=== PATIENT | female | born 1965 | race Caucasian/White ===

== ENCOUNTER 2022-05-17 09:22 | Inpatient (IN) ==
[2022-05-17 09:28] VITALS: BMI 36.0
--- NOTE | 2022-05-17 09:58 | DR.EXTPAIN ---
HPI Time seen Time Seen by Provider: 05/17/22 09:56 PCP Primary Care Physician: ALBA Complaint/Symptoms Chief Complaint Doctor Comments: PAIN BACK AND NUMBNESS TIMES 3 TO 4 WEEKS. STARTED IN BOTH FEET NOW UP TO NEEPLE LEVEL. NO TRAUMA. ALSO HAVING ABDOMINAL PAIN WITH NAUSEA AND Chief Complaint:: PT STATES ABOUT 3 WKS AGO SHE STARTED HAVING NUMBNESS IN HER LEGS AND IT HAS WENT UP TO HER STOMACH AND UP TO HER FINGERS ON BILATERAL SIDES. PT STATES SHE HAS A BAD COUGH WELL. PT STATES AT TIMES HER STOMACH HURTS OR ITS NUMB. COVID-19 Coronavirus risk:travel/contact w/high risk person: No Has patient experienced Coronavirus symptoms: No Source History Provided: Patient Mode of arrival Mode of Arrival: Wheelchair Timing Onset of Chief Complaint: 05/17/22 PMH PMH Past Medical History: Yes Past Medical History: Hypertension Past Surgical History: No Surgical History: No History Family History History of Family Medical Conditions: No Family Medical History: Cancer, Coronary Artery Disease, Heart Failure and Hypertension Social History Does patient currently use any type of tobacco product: Yes Have you used tobacco products in the last 12 months: Yes Type of Tobacco Use: Cigarettes Does any household member use tobacco: Yes Alcohol Use: Occasionally Do you use any recreational Drugs:: No Lives With: Family Lives Where: Home Travel Risk Coronavirus risk:travel/contact w/high risk person: No Has patient experienced Coronavirus symptoms: No Infectious screening In the last 2 months have you had wt loss of >10#?: NO Have you had fever, night sweats or hemotysis?: No Have you traveled outside the country in the last 6 months?: No Isolation: Standard PE Vital Signs Vitals: Temperature 97.9 F Pulse Rate 110 Respiratory Rate 18 Blood Pressure [Left Arm] 141/76 Blood Pressure 121/84 O2 Sat by Pulse Oximetry 99 ROR Labs Reviewed Result Diagrams: 05/17/22 10:23 05/17/22 10:23 Laboratory: WBC 4.6 X10^3/uL (3.6-10.0) 05/17/22 10:23 RBC 2.25 X10^6/uL (3.5-5.4) L 05/17/22 10:23 Hgb 10.7 g/dL (12.0-16.0) L 05/17/22 10:23 Hct 28.9 % (36.0-47.0) L 05/17/22 10:23 MCV 128.6 fL (80.0-100.0) H 05/17/22 10:23 MCH 47.4 pg (27.0-34.0) H 05/17/22 10:23 MCHC 36.9 g/dL (33.0-35.0) H 05/17/22 10:23 RDW 17.3 % (11.6-16.5) H 05/17/22 10:23 Plt Count 186 X10^3/uL (150.0-450.0) 05/17/22 10:23 Plt Count Comment Adequate (ADEQUATE) 05/17/22 10:23 MPV 8.4 fL (7.4-11.0) 05/17/22 10:23 Neut % (Auto) 77.3 % (42.0-75.0) H 05/17/22 10:23 Lymph % (Auto) 15.4 % (21.0-51.0) L 05/17/22 10:23 [place] % (Auto) 6.2 % (0.0-13.0) 05/17/22 10:23 Eos % (Auto) 0.5 % (0.9-2.9) L 05/17/22 10:23 Baso % (Auto) 0.6 % (0.2-1.0) 05/17/22 10:23 Neut # (Auto) 3.5 x10^3/uL (2.2-4.8) 05/17/22 10:23 Lymph # (Auto) 0.7 X10^3/uL (1.3-2.9) L 05/17/22 10:23 [place] # (Auto) 0.3 x10^3/uL (0.3-0.8) 05/17/22 10:23 Eos # (Auto) 0.0 x10^3/uL (0.0-0.2) 05/17/22 10:23 Baso # (Auto) 0.0 X10^3/uL (0.0-0.1) 05/17/22 10:23 Absolute Nucleated RBC 0.4 /100WBC 05/17/22 10:23 Plt Morphology Comment Normal (NORMAL) 05/17/22 10:23 RBC Morphology Abnormal (NORMAL) A 05/17/22 10:23 Poikilocytosis Slight A 05/17/22 10:23 Anisocytosis Slight A 05/17/22 10:23 Macrocytosis 3+ A 05/17/22 10:23 Sodium 132 mmol/L (136-145) L 05/17/22 10:23 Corrected Sodium 132 mmol/L (136-145) L 05/17/22 10:23 Potassium 2.1 mmol/L (3.5-5.1) L* 05/17/22 10:23 Chloride 87 mmol/L (98-107) L 05/17/22 10:23 Carbon Dioxide 39.1 mmol/L (21-32) H 05/17/22 10:23 BUN 9 mg/dL (7-18) 05/17/22 10:23 Creatinine 0.76 mg/dL (0.55-1.02) 05/17/22 10:23 Est GFR (MDRD) Af Amer > 60 (>60) 05/17/22 10:23 Est GFR (MDRD) Non-Af > 60 (>60) 05/17/22 10:23 Glucose 116 mg/dL (65-99) H 05/17/22 10:23 Hemoglobin A1c 5.7 % 05/17/22 10:23 Calcium 8.5 mg/dL (8.5-10.1) 05/17/22 10:23 Corrected Calcium 9.5 mg/dL (8.5-10.1) 05/17/22 10:23 Magnesium 1.3 mg/dL (1.7-2.9) L 05/17/22 10:23 Total Bilirubin 2.70 mg/dL (0.2-1.0) H 05/17/22 10:23 AST 67 Units/L (15-37) H 05/17/22 10:23 ALT 23 Units/L (12-78) 05/17/22 10:23 Alkaline Phosphatase 205 Units/L (46-116) H 05/17/22 10:23 Total Protein 6.3 g/dL (6.4-8.2) L 05/17/22 10:23 Albumin 2.8 g/dL (3.4-5.0) L 05/17/22 10:23 Globulin 3.5 g/dL (2.5-4.5) 05/17/22 10:23 Albumin/Globulin Ratio 0.8 Ratio (1.1-2.1) L 05/17/22 10:23 Specimen Type Random urine 05/17/22 11:27 Urine Color Dark yellow (YELLOW) 05/17/22 11:27 Urine Appearance Slightly hazy (CLEAR) 05/17/22 11:27 Urine pH 8.0 (5.0 - 8.0) 05/17/22 11:27 Ur Specific [place] 1.010 (1.000-1.030) 05/17/22 11:27 Urine Protein 1+ (NEGATIVE) 05/17/22 11:27 Urine Glucose (UA) Negative (NEGATIVE) 05/17/22 11:27 Urine Ketones Negative (NEGATIVE) 05/17/22 11:27 Urine Blood 1+ (NEGATIVE) 05/17/22 11:27 Urine Nitrite Negative (NEGATIVE) 05/17/22 11:27 Urine Bilirubin Negative (NEGATIVE) 05/17/22 11:27 Urine Urobilinogen 2+ (NORMAL) 05/17/22 11:27 Ur Leukocyte Esterase 1+ (NEGATIVE) 05/17/22 11:27 Urine RBC 0-2 /HPF (0-3) 05/17/22 11:27 Urine WBC 0-2 /HPF (0-5) 05/17/22 11:27 Ur Squamous Epith Cells Rare /HPF (NEGATIVE) 05/17/22 11:27 Amorphous Sediment 1+ /HPF (NEGATIVE) 05/17/22 11:27 Urine Bacteria Negative /HPF (NEGATIVE) 05/17/22 11:27 Ur Culture Indicated? No/not indicated 05/17/22 11:27 SARS-CoV-2 (PCR) Negative (NEGATIVE) 05/17/22 12:44 Opioid Opioid Risk Tool Age (Sudarshan box if 16-45): No History of Preadolescent Sexual Abuse: No Total: 0 Total Score Risk Category: Low Risk Copyright: Chad PERRIN predicting aberrant behaviors Discharge Plan Discharge Plan Patient Disposition: 01 HOME, SELF-CARE Condition: Stable Orders to Discharge Patient Discharge Orders: Transfer (Routine); Ordered 05/17/22 Ordered By: RONIT IRWIN
[2022-05-17] MEDS ORDERED: TORADOL 60 MG VIAL IM ONE (10:11)
[2022-05-17] MEDS ORDERED: ZOFRAN INJ 4 MG VIAL IM ONE (10:11)
[2022-05-17] MEDS ORDERED: TORADOL 60 MG VIAL ONE (10:14)
[2022-05-17] MEDS ORDERED: ZOFRAN INJ 4 MG VIAL ONE (10:15)
[2022-05-17 10:31] LABS: BASOPHILS % (AUTO) 0.6 % (0.2-1.0); EOSINOPHILS % (AUTO) 0.5 % (0.9-2.9); HEMATOCRIT 28.9 % (36.0-47.0); HEMOGLOBIN 10.7 g/dL (12.0-16.0); LYMPHOCYTES # (AUTO) 0.7 X10^3/uL (1.3-2.9); LYMPHOCYTES % (AUTO) 15.4 % (21.0-51.0); MEAN CORPUSCULAR HEMOGLOBIN 47.4 pg (27.0-34.0); MEAN CORPUSCULAR HGB CONC 36.9 g/dL (33.0-35.0); MEAN CORPUSCULAR VOLUME 128.6 fL (80.0-100.0); MEAN PLATELET VOLUME 8.4 fL (7.4-11.0); MONOCYTES # (AUTO) 0.3 x10^3/uL (0.3-0.8); MONOCYTES % (AUTO) 6.2 % (0.0-13.0); NEUTROPHILS # (AUTO) 3.5 x10^3/uL (2.2-4.8); NEUTROPHILS % (AUTO) 77.3 % (42.0-75.0); RED BLOOD COUNT 2.25 X10^6/uL (3.5-5.4); RED CELL DISTRIBUTION WIDTH 17.3 % (11.6-16.5); WHITE BLOOD COUNT 4.6 X10^3/uL (3.6-10.0)
[2022-05-17 10:46] LABS: PLATELET MORPHOLOGY COMMENT NORMAL (NORMAL)
[2022-05-17 10:47] LABS: ANISOCYTOSIS SLIGHT; POIKILOCYTOSIS SLIGHT
[2022-05-17 11:04] LABS: ALANINE AMINOTRANSFERASE 23 Units/L (12-78); ALBUMIN 2.8 g/dL (3.4-5.0); ALKALINE PHOSPHATASE 205 Units/L (46-116); ASPARTATE AMINO TRANSFERASE 67 Units/L (15-37); BLOOD UREA NITROGEN 9 mg/dL (7-18); CALCIUM 8.5 mg/dL (8.5-10.1); CARBON DIOXIDE 39.1 mmol/L (21-32); CHLORIDE 87 mmol/L (98-107); COR CA(FOR HYPOALB) 9.5 mg/dL (8.5-10.1); COR NA(FOR HYPERGLY) 132 mmol/L (136-145); CREATININE 0.76 mg/dL (0.55-1.02); MAGNESIUM 1.3 mg/dL (1.7-2.9); SODIUM 132 mmol/L (136-145); TOTAL PROTEIN 6.3 g/dL (6.4-8.2); eGFR NON BLACK RACES > 60 (>60)
[2022-05-17] MEDS ORDERED: KLOR-CON PO ONE (11:17)
--- NOTE | 2022-05-17 11:18 | CT ---
HISTORYLower extremity numbnessSTUDYCT thoracic spine without contrastTechnique: Axial noncontrast images with coronal and sagittal reformats. Dose reduction procedures were used with mA/kv adjusted for body size.COMPARISONNoneFINDINGSThe alignment is normal. The vertebral bodies are of average height. No compression fractures are identified. Diffuse spondylitic changes present most prominent in the mid and lower thoracic spine. Disc heights are preserved. The pedicles, spinous processes, and posterior elements are intact. The neural foramina are patent. The joints are within normal limits for age. The visualized posterior ribs are intact. It should be noted that CT of the thoracic spine alone is not adequate for the evaluation of thoracic disc disease or evaluation of the thoracic spinal cord. If disc disease or cord abnormality is suspected clinically MRI would be required for further evaluation. No lytic or blastic lesions are identified. No paraspinous soft tissue abnormality is identified.IMPRESSIONNo evidence for lytic or blastic lesions or compression fracturesDiffuse spondylosis most prominent in the mid and lower thoracic spine.See note above with reference to thoracic disc disease and thoracic spinal cord evaluation.Electronically signed by: DANIELLE JONES (May 17, 2022 11:16:05)
[2022-05-17] MEDS ORDERED: KLOR-CON ONE (11:20)
--- NOTE | 2022-05-17 11:23 | CT ---
HISTORYLower extremity numbnessSTUDYCT lumbar spine without contrastTechnique: Axial noncontrast images with coronal and sagittal reformats. Dose reduction procedures were used with mA/kv adjusted for body size.COMPARISONPlain-film 03/24/2020FINDINGSThe alignment is normal. The vertebral bodies are of average height. The pedicles, spinous processes, and posterior elements are intact. The SI joints and sacrum are intact. The disc levels are evaluated as follows:T12-L1 level, L1-2 level, L2-3 level: No evidence for compressive disc disease. The neural foramina are patent. The joints are normal.L3-4 level: Mild concentric disc bulging effaces the thecal sac and contributes to minimal lateral recess narrowing bilaterally. Mild bilateral facet arthropathy is present.L4-5 level: Minimal broad-based disc bulging effaces the thecal sac and contributes along with bilateral facet arthropathy to mild lateral recess and mild foraminal narrowing bilaterally.L5-S1 level: No evidence for compressive disc disease. Spondylitic change and pedicular shortening contribute to foraminal narrowing bilaterally.IMPRESSIONAs aboveElectronically signed by: DANIELLE JONES (May 17, 2022 11:21:30)
[2022-05-17] MEDS ORDERED: NS 1,000 ML IV 1,000 ML ONE (11:31)
[2022-05-17 11:43] LABS: BILIRUBIN,URINE NEGATIVE (NEGATIVE); BLOOD/HEMOGLOBIN,URINE 1+ (NEGATIVE); GLUCOSE, URINE NEGATIVE (NEGATIVE); KETONES,URINE NEGATIVE (NEGATIVE); LEUKOCYTE ESTERASE ,URINE 1+ (NEGATIVE); NITRITES,URINE NEGATIVE (NEGATIVE); PROTEIN,URINE 1+ (NEGATIVE); UROBILINOGEN,URINE 2+ (NORMAL)
[2022-05-17 11:48] LABS: APPEARANCE,URINE SLIGHTLY HAZY (CLEAR); COLOR,URINE DARK YELLOW (YELLOW)
[2022-05-17 11:51] LABS: RBC,URINE 0-2 /HPF (0-3); SQUAMOUS EPITHELIAL CELL,UR RARE /HPF (NEGATIVE)
[2022-05-17 11:52] LABS: BACTERIA,URINE NEGATIVE /HPF (NEGATIVE)
[2022-05-17] MEDS ORDERED: NS 1,000 ML IV 1,000 ML with POTASSIUM CHLORIDE INJ 10 MEQ VIAL 10 MEQ IV NR ×2 (12:00)
[2022-05-17] MEDS ORDERED: NS 1,000 ML IV 1,000 ML IV SCH (14:10)
--- NOTE | 2022-05-17 15:00 | CT ---
HISTORYAbdominal painSTUDYCT abdomen pelvis with contrastTechnique: Axial noncontrast images with coronal and sagittal reformats. Dose reduction procedures were used with mA/kv adjusted for body size.COMPARISONNoneFINDINGSLung bases are clear. The liver is normal in size and configuration but decreased in attenuation suggestive of diffuse fatty infiltration. Cholelithiasis is present. There are no findings suggestive of cholecystitis. The spleen, adrenal glands, and pancreas within normal limits the limitations of an unenhanced examination. The kidneys are unobstructed and without stones. No ureteral calculi are identified. Calcific atherosclerotic changes present in a nondilated abdominal aorta. No intraperitoneal or retroperitoneal lymphadenopathy of significance is identified. The appendix is normal. There are no findings suggestive of enteritis, colitis, or diverticulitis. No pelvic masses, pelvic fluid, or pelvic lymphadenopathy is identified. Descending colon and sigmoid colon diverticulosis is identified. No bladder abnormality is identified. No lytic or blastic skeletal lesions of significance are identified.IMPRESSIONNo definite acute intra-abdominal or intrapelvic abnormality to the limitations of an examination performed without intravenous and without oral contrast.Cholelithiasis without cholecystitisDiffuse fatty infiltration of the liverNormal appendixElectronically signed by: DANIELLE JONES (May 17, 2022 14:58:12)
[2022-05-17] MEDS ORDERED: POTASSIUM CHL 40 MEQ/NS 0.45% 500 ML IV PRN (15:20)
[2022-05-17] MEDS ORDERED: POTASSIUM CHL 60 MEQ/NS 0.45% 500 ML IV PRN (15:20)
[2022-05-17] MEDS ORDERED: K-DUR TAB 20 MEQ PO PRN (15:20)
[2022-05-17] MEDS ORDERED: POTASSIUM CHLORIDE LIQ 20 MEQ UDC PO PRN (15:20)
[2022-05-17] MEDS ORDERED: MICRO K EXTEN CAP 10 MEQ PO PRN (15:20)
[2022-05-17] MEDS ORDERED: K-RIDER 10 MEQ/NS 100 ML 10 MEQ/100 ML BAG IV PRN (15:20)
[2022-05-17] MEDS ORDERED: KLOR-CON PO PRN (15:20)
[2022-05-17] MEDS: NS + KCL 20 MEQ/L 1,000 ML IV SCH (16:07)
[2022-05-17] MEDS: MAGNESIUM SULFATE 1 GRAM/100 mL PREMIX 1 G/100 ML BAG IV PRN ×4 (16:07→23:22)
[2022-05-17] MEDS: ULTRAM PO PRN (21:15)
[2022-05-18 02:38] LABS: BASOPHILS % (AUTO) 0.7 % (0.2-1.0); EOSINOPHILS # (AUTO) 0.1 x10^3/uL (0.0-0.2); EOSINOPHILS % (AUTO) 1.3 % (0.9-2.9); HEMATOCRIT 25.6 % (36.0-47.0); HEMOGLOBIN 9.2 g/dL (12.0-16.0); LYMPHOCYTES # (AUTO) 1.1 X10^3/uL (1.3-2.9); LYMPHOCYTES % (AUTO) 25.6 % (21.0-51.0); MEAN CORPUSCULAR HEMOGLOBIN 46.6 pg (27.0-34.0); MEAN CORPUSCULAR HGB CONC 35.8 g/dL (33.0-35.0); MEAN CORPUSCULAR VOLUME 130.3 fL (80.0-100.0); MEAN PLATELET VOLUME 8.9 fL (7.4-11.0); MONOCYTES # (AUTO) 0.2 x10^3/uL (0.3-0.8); MONOCYTES % (AUTO) 5.4 % (0.0-13.0); RED BLOOD COUNT 1.97 X10^6/uL (3.5-5.4); RED CELL DISTRIBUTION WIDTH 17.4 % (11.6-16.5); WHITE BLOOD COUNT 4.4 X10^3/uL (3.6-10.0)
[2022-05-18 02:40] LABS: ANISOCYTOSIS SLIGHT; PLATELET MORPHOLOGY COMMENT NORMAL (NORMAL)
[2022-05-18 02:44] LABS: ALANINE AMINOTRANSFERASE 24 Units/L (12-78); ALBUMIN 2.4 g/dL (3.4-5.0); ALKALINE PHOSPHATASE 193 Units/L (46-116); ASPARTATE AMINO TRANSFERASE 69 Units/L (15-37); BLOOD UREA NITROGEN 7 mg/dL (7-18); CALCIUM 7.7 mg/dL (8.5-10.1); CARBON DIOXIDE 34.3 mmol/L (21-32); CHLORIDE 96 mmol/L (98-107); CHOL/HDL RATIO 3.6 (0.0-5.0); CHOLESTEROL 76 mg/dL (0-200); CREATININE 0.57 mg/dL (0.55-1.02); HDL CHOLESTEROL 21 mg/dL (40-60); MAGNESIUM 2.3 mg/dL (1.7-2.9); SODIUM 134 mmol/L (136-145); TOTAL PROTEIN 5.6 g/dL (6.4-8.2); TRIGLYCERIDES 79 mg/dL (0-150); eGFR NON BLACK RACES > 60 (>60)
[2022-05-18] MEDS: NS + KCL 20 MEQ/L 1,000 ML IV SCH ×3 (04:00→18:31)
[2022-05-18] MEDS: ULTRAM PO PRN (10:45)
--- NOTE | 2022-05-18 11:04 | DR.H&P ---
H&P - History & Physical for Day of: H&P Date: 05/17/22 - Chief Complaint Chief Complaint: BACK PAIN, ABDOMINAL PAIN, AND NUMBNESS TO LEGS AND FINGERS - History of Present Illness History of Present Illness: IS A 56 YEAR OLD WHITE FEMALE. SHE PRESENTED TO THE ER WITH COMPLAINTS OF BACK PAIN, ABDOMINAL PAIN, AND NUMBNESS TO LEGS AND FINGERS FOR THE PAST 3-4 WEEKS. SHE REPORTED THAT NUMBNESS STARTED IN FEET AND HAS MOVED TO HER FINGERS. SHE DESCRIBES BACK PAIN DULL/ACHING. ABDOMINAL PAIN IS DESCRIBED CRAMPING. SHE ALSO REPORTS CRAMPING TO BILATERAL LOWER EXTREMITIES. SHE ADMITS TO DIFFICULTY WALKING DUE TO PAIN. SHE RATES PAIN TO FEET, LEGS, BACK, AND ABDOMEN A 7/10. HER ONLY PMH IS HTN, FOR WHICH SHE IS CURRENTLY ON NORVASC AND HCTZ DAILY. ON ARRIVAL, VITALS WERE: 97.9-110-20-99%-121/84. LABS WERE OBTAINED. WBC 4.6, RBC 2.25, HGB 10.7, HCT 28.9, SODIUM 132, POTASSIUM 2.1, CHLORIDE 87, CARBON DIOXIDE 39.1, BUN 9, CREATININE 0.76, GLUCOSE 116, CALCIUM 8.5, MAGNESIUM 1.3, TOTAL BILI 2.70, AST 67, ALT 23, ALK PHOS 205, TROPONIN 114.1, TOTAL PROTEIN 6.3, ALBUMIN 2.8. URINALYSIS WAS OBTAINED AND REVEALED: WBC 0-2, RBC 0-2, LEUKOCYTES 1+, BACTERIA NEGATIVE. COVID-[address] NEGATIVE[address] A LUMBAR SPINE CT WAS OBTAINED AND REVEALED: T12-L1 level, L1-2 level, L2-3 level: No evidence for compressive disc disease. The neural foramina are patent. The joints are normal. L3-4 level: Mild concentric disc bulging effaces the thecal sacand contributes to minimal lateral recess narrowing bilaterally. Mild bilateral facet arthropathy is present. L4-5 level: Minimal broad-based disc bulging effaces the thecal sac and contributes along with bilateral facet arthropathy to mild lateral recess and mild foraminal narrowing bilaterally. L5-S1 level: No evidence for compressive disc disease. Spondylitic change and pedicular shortening contribute to foraminal narrowing bilaterally. A THORACIC SPINE CT WAS OBTAINED AND REVEALED: The alignment is normal. The vertebral bodies are of average height. No compression fractures are identified. Diffuse spondylitic changes present most prominent in the mid and lower thoracic spine. Disc heights are preserved. The pedicles, spinous processes, and posterior elements are intact. The neural foramina are patent. The joints are within normal limits for age. The visualized posterior ribs are intact. No lytic or blastic lesions are identified. No paraspinous soft tissue abnormality is identified. AN ABDOMEN/PELVIS CT WITHOUT CONTRAST WAS OBTAINED AND REVEALED: No definite acute intra-abdominal or intrapelvic abnormality to the limitations of an examination performed without intravenous and without oral contrast. Cholelithiasis without cholecystitis. Diffuse fatty infiltration of the liver. Normal appendix. EKG REVEALED: SINUS TACHYCARDIA WITH HR 101. IN THE ER, SHE WAS GIVEN TORADOL 60MG IM X 1 DOSE, ZOFRAN 4MG IM X 1 DOSE, KLOR-CON 60MG PO X 1 DOSE, AND A NORMAL SALINE BOLUS. SHE WAS ADMITTED TO THE HOSPITAL INPATIENT STATUS FOR FURTHER EVALUATION AND TREATMENT OF DEHYDRATION, HYPOKALEMIA, HYPONATREMIA, NUMBNESS, AND ELEVATED BILIRUBIN. SHE WAS STARTED ON NORMAL SALINE WITH 20MEQ KCL AT 150 ML/HR, ULTRAM 50MG PO Q4H PRN PAIN, AND THE POTASSIUM AND MAGNESIUM PROTOCOLS. OTHERWISE, WE PLAN TO FOLLOW-UP WITH AM LABS AND CONTINUE TO MONITOR. TIME SPENT ON CLINICAL ASSESSMENT, REVIWING LABS AND IMAGING, DECISION MAKING, AND DOCUMENTATION GREATER THAN 75 MINUTES. - Past Medical History Past Medical History: Hypertension - Past Surgical History Surgical History: No History - Family History Family Medical History: Cancer, Coronary Artery Disease, Heart Failure, Hypertension - Social History Does patient currently use any type of tobacco product: Yes Have you used tobacco products in the last 12 months: Yes Type of Tobacco Use: Cigarettes Does any household member use tobacco: Yes Alcohol Use: Occasionally Drug Use: None - Medications Home Medications: lisinopril Allergy (Verified 08/13/21 08:03) CONTINUE taking the following medications amlodipine 10 mg tablet (Norvasc) 12.5 mg PO DAILY 05/17/22 [History] hydrochlorothiazide 12.5 mg tablet 12.5 mg PO DAILY 05/17/22 [History] - Review of Systems Constitutional: Weakness Eyes: No Symptoms Reported ENT: No Symptoms Reported Respiratory: No Symptoms Reported Cardiovascular: No Symptoms Reported Gastrointestinal: Abdominal Pain, Diarrhea Genitourinary: Frequency Musculoskeletal: Back Pain, Leg Pain (CRAMPING ) Skin: No Symptoms Reported Neurological: Weakness - Physical Exam Vital Signs: Temperature 97.6 F Pulse Rate [Radial] 89 Pulse Rate 110 Respiratory Rate 20 Blood Pressure [Left Arm] 124/75 Blood Pressure 121/84 O2 Sat by Pulse Oximetry 94 Oriented: Normal Eyes: Normal Ear: Normal Nose: Normal Throat: Normal Respiratory: Diminished Throughout Cardiovascular: Tachycardia : Normal Auscultation: Bowel Sounds: Normal Palpation: Normal Tenderness: Normal Skin: Normal Musculoskeletal: Normal Psychiatric: Normal Mood Description: Calm Affect: Normal Speech Pattern: Clear - Assessment/Plan (1) Dehydration Status: Acute Plan: ADMIT, NORMAL SALINE WITH 20MEQ KCL AT 150 ML/HR, ULTRAM 50MG PO Q4H PRN PAIN, AND THE POTASSIUM AND MAGNESIUM PROTOCOLS. MONITOR LABS (2) Hypokalemia Status: Acute (3) Hyponatremia Status: Acute (4) Numbness Status: Acute (5) Elevated bilirubin Status: Acute - Allergies Allergies/Adverse Reactions: Allergies Allergy/AdvReac Type Severity Reaction Status Date / Time lisinopril Allergy Verified 08/13/21 08:03
[2022-05-19] MEDS: NS + KCL 20 MEQ/L 1,000 ML IV SCH ×2 (00:22→07:00)
[2022-05-19 06:16] LABS: ALANINE AMINOTRANSFERASE 28 Units/L (12-78); ALBUMIN 2.5 g/dL (3.4-5.0); ALKALINE PHOSPHATASE 207 Units/L (46-116); ASPARTATE AMINO TRANSFERASE 78 Units/L (15-37); BASOPHILS % (AUTO) 0.9 % (0.2-1.0); BLOOD UREA NITROGEN 3 mg/dL (7-18); CALCIUM 7.6 mg/dL (8.5-10.1); CARBON DIOXIDE 29.4 mmol/L (21-32); CHLORIDE 101 mmol/L (98-107); COR CA(FOR HYPOALB) 8.8 mg/dL (8.5-10.1); CREATININE 0.41 mg/dL (0.55-1.02); EOSINOPHILS # (AUTO) 0.1 x10^3/uL (0.0-0.2); EOSINOPHILS % (AUTO) 1.7 % (0.9-2.9); HEMOGLOBIN 9.6 g/dL (12.0-16.0); LYMPHOCYTES # (AUTO) 0.9 X10^3/uL (1.3-2.9); LYMPHOCYTES % (AUTO) 16.5 % (21.0-51.0); MEAN CORPUSCULAR HEMOGLOBIN 46.5 pg (27.0-34.0); MEAN CORPUSCULAR HGB CONC 35.6 g/dL (33.0-35.0); MEAN CORPUSCULAR VOLUME 130.6 fL (80.0-100.0); MEAN PLATELET VOLUME 8.6 fL (7.4-11.0); MONOCYTES # (AUTO) 0.2 x10^3/uL (0.3-0.8); MONOCYTES % (AUTO) 4.5 % (0.0-13.0); NEUTROPHILS % (AUTO) 76.4 % (42.0-75.0); RED BLOOD COUNT 2.07 X10^6/uL (3.5-5.4); SODIUM 135 mmol/L (136-145); TOTAL PROTEIN 5.8 g/dL (6.4-8.2); WHITE BLOOD COUNT 5.3 X10^3/uL (3.6-10.0); eGFR NON BLACK RACES > 60 (>60)
[2022-05-19 07:34] LABS: PLATELET MORPHOLOGY COMMENT NORMAL (NORMAL)
[2022-05-19 12:04] VITALS: BP 174/81
== END 2022-05-19 11:15 | disposition home or self-care (01) | DRG 641 ==
LOC: ER 09:22 → MED/SURG 12:59
PROVIDERS: ADMIT Internal Medicine; ATTEND Internal Medicine
DX: E80.6 Other disorders of bilirubin metabolism; R20.0 Anesthesia of skin; E86.0 Dehydration; R77.8 Other specified abnormalities of plasma proteins; I10 Essential (primary) hypertension; K80.80 Other cholelithiasis without obstruction; R94.31 Abnormal electrocardiogram [ECG] [EKG]; R35.1 Nocturia; R10.84 Generalized abdominal pain; E87.6 Hypokalemia; M54.89 Other dorsalgia; E87.1 Hypo-osmolality and hyponatremia; Z20.822 Contact with and (suspected) exposure to COVID-19

== ENCOUNTER 2023-08-11 08:27 | Inpatient (IN) ==
--- NOTE | 2023-08-11 08:35 | DR.EXTPAIN ---
HPI Time seen Time Seen by Provider: 08/11/23 08:49 Complaint/Symptoms Chief Complaint Doctor Comments: 57-year-old female brought in by EMS for evaluation. Patient was fine yesterday. This a.m. patient has generalized weakness of both lower extremities. She is too weak to get out of bed, too weak to stand. Denies any recent trauma or recent illness. 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 She has a history of neuropathy of her lower extremities. Denies any bowel or bladder incontinence. No fever, chills, upper respiratory symptoms. She has a chronic cough, no change from usual. Patient still smokes. She has a history of COPD. Pulse ox at home generally runs in the upper 80s. She is not on any home O2. Oxygen on arrival here in the upper 80s. Patient placed on 3 L nasal cannula. Nurses notes reviewed Nurses Notes Review: Yes Source History Provided: Patient and EMS PMH PMH Past Medical History: Hypertension Past Medical History Comment: COPD, peripheral neuropathy Past Surgical History: No Surgical History: No History Family History Family Medical History: Cancer, Coronary Artery Disease, Heart Failure and Hypertension Social History Does patient currently use any type of tobacco product: Yes Type of Tobacco Use: Cigarettes Do you use any recreational Drugs:: No ROS Review of Systems Constitutional: Malaise and Weakness Eyes: No Symptoms Reported ENTM: No Symptoms Reported Respiratoy: Moist Cough Cardiovascular: No Symptoms Reported Gastrointestinal/Abdominal: No Symptoms Reported Genitourinary: No Symptoms Reported Neurological: Weakness (Bilateral lower extremities) Musculoskeletal: No Symptoms Reported Integumentary: No Symptoms Reported Hematologic/Lymphatic: No Symptoms Reported All Other Systems: Reviewed and Negative PE Vital Signs Vitals: Vital Signs Temperature 98.3 F Pulse Rate 79 Pulse Rate 84 Pulse Rate 76 Pulse Rate 78 Pulse Rate 78 Pulse Rate 80 Pulse Rate 79 Pulse Rate 82 Pulse Rate 82 Pulse Rate 82 Pulse Rate 84 Pulse Rate 88 Pulse Rate 89 Pulse Rate 95 Pulse Rate 92 Pulse Rate 95 Pulse Rate 98 Pulse Rate 106 Pulse Rate 106 Pulse Rate 114 Pulse Rate 114 Respiratory Rate 12 Respiratory Rate 20 Blood Pressure 127/72 Blood Pressure 98/69 Blood Pressure 93/65 Blood Pressure 93/65 Blood Pressure 87/62 Blood Pressure 87/62 Blood Pressure 101/66 Blood Pressure 91/60 Blood Pressure 85/54 Blood Pressure 91/58 Blood Pressure 102/63 O2 Sat by Pulse Oximetry 95 O2 Sat by Pulse Oximetry 93 O2 Sat by Pulse Oximetry 95 O2 Sat by Pulse Oximetry 95 O2 Sat by Pulse Oximetry 94 O2 Sat by Pulse Oximetry 94 O2 Sat by Pulse Oximetry 94 O2 Sat by Pulse Oximetry 91 O2 Sat by Pulse Oximetry 94 O2 Sat by Pulse Oximetry 95 O2 Sat by Pulse Oximetry 95 O2 Sat by Pulse Oximetry 92 O2 Sat by Pulse Oximetry 91 O2 Sat by Pulse Oximetry 93 O2 Sat by Pulse Oximetry 93 O2 Sat by Pulse Oximetry 92 O2 Sat by Pulse Oximetry 91 O2 Sat by Pulse Oximetry 90 O2 Sat by Pulse Oximetry 90 O2 Sat by Pulse Oximetry 89 O2 Sat by Pulse Oximetry 86 General General Appearance: Alert and In No Apparent Distress Head Head Exam: Normal Inspection, Atraumatic and Normocephalic Eyes Eye exam: PERRL and EOMI ENT ENT Exam: Normal Oropharynx and Mucous Membranes Moist Neck Neck Exam: Normal Inspection and Full ROM; negative Tenderness Respiratory Respiratory Exam: Normal Lung Sounds Bilat; negative Accessory Muscle Use or Respiratory Distress Cardiovascular Cardiovascular Exam: Regular Rate, Normal Rhythm and Normal Heart Sounds Abdominal Exam Abdominal Exam: Normal Bowel Sounds, Soft and Tenderness (upper abdomen) Extremities Extremities Exam: Normal Inspection and Other (Bilateral lower extremity weakness, able to lift them off the bed, barely, can maintain, no drift.); negative Tenderness or Edema Neurological Neurological Exam: Alert, Oriented X3 and CN II-XII Intact; negative Motor Sensory Deficit Skin Skin Exam: Warm and Dry Other Exam Other Exam: Feet warm, good distal pulses COURSE Treatment Treatment: 57-year-old female with generalized weakness of both lower extremities. No known injury or recent illness. Work-up initiated. Patient given IV Solu-Medrol, 125 mg. Reviewed office note from Dr. Parham in the electronic medical record. There is report of a right lung nodule on a CT scan from June 2022, that needed follow-up imaging. Chest x-ray here shows COPD changes, appears to be a right lower lobe mass, about 1.9 x 2.2 cms. 1225 -CT of the chest performed, awaiting official reading. Does have large round nodule of the right middle lobe, another nodule apparently of the right lower lobe with surrounding irregular markings. Concerning for lung mass, possible secondary pneumonia versus obstructive changes. Patient given IV Rocephin here. Patient will be admitted for treatment of her electrolyte abnormalities. She was given IV rocephin for coverage. Discussed with Dr. Parham, accepts the admission. 1254 -official CT reading for chest states the increased markings of the right lower lobe consistent with pneumonia. [facility] Labs Reviewed Laboratory Results Reviewed?: Yes 08/11/23 09:03 08/11/23 09:03 Laboratory: WBC 7.1 X10^3/uL (3.6-10.0) 08/11/23 09:03 RBC 3.81 X10^6/uL (3.5-5.4) 08/11/23 09:03 Hgb 13.8 g/dL (12.0-16.0) 08/11/23 09:03 Hct 39.3 % (36.0-47.0) 08/11/23 09:03 MCV 103.3 fL (80.0-100.0) H 08/11/23 09:03 MCH 36.1 pg (27.0-34.0) H 08/11/23 09:03 MCHC 35.0 g/dL (33.0-35.0) 08/11/23 09:03 RDW 13.4 % (11.6-16.5) 08/11/23 09:03 Plt Count 92 X10^3/uL (150.0-450.0) L 08/11/23 09:03 Plt Count Comment Decreased (ADEQUATE) A 08/11/23 09:03 MPV 9.9 fL (7.4-11.0) 08/11/23 09:03 Neut % (Auto) 78.2 % (42.0-75.0) H 08/11/23 09:03 Lymph % (Auto) 13.2 % (21.0-51.0) L 08/11/23 09:03 Toole % (Auto) 7.9 % (0.0-13.0) 08/11/23 09:03 Eos % (Auto) 0.1 % (0.9-2.9) L 08/11/23 09:03 Baso % (Auto) 0.6 % (0.2-1.0) 08/11/23 09:03 Neut # (Auto) 5.5 x10^3/uL (2.2-4.8) H 08/11/23 09:03 Lymph # (Auto) 0.9 X10^3/uL (1.3-2.9) L 08/11/23 09:03 Toole # (Auto) 0.6 x10^3/uL (0.3-0.8) 08/11/23 09:03 Eos # (Auto) 0.0 x10^3/uL (0.0-0.2) 08/11/23 09:03 Baso # (Auto) 0.0 X10^3/uL (0.0-0.1) 08/11/23 09:03 Absolute Nucleated RBC 0.1 /100WBC 08/11/23 09:03 Total Counted 100 08/11/23 09:03 Neutrophils % (Manual) 73 % (39-76) 08/11/23 09:03 Band Neutrophils % 6 % (0-10) 08/11/23 09:03 Lymphocytes % (Manual) 12 % (13-43) L 08/11/23 09:03 Monocytes % (Manual) 8 % (4-9) 08/11/23 09:03 Metamyelocytes % 1 08/11/23 09:03 Plt Morphology Comment Normal (NORMAL) 08/11/23 09:03 RBC Morphology Abnormal (NORMAL) A 08/11/23 09:03 Target Cells 1+ A 08/11/23 09:03 Stomatocytes 1+ A 08/11/23 09:03 Sodium 129 mmol/L (136-145) L 08/11/23 09:03 Corrected Sodium TNP 08/11/23 09:03 Potassium 2.1 mmol/L (3.5-5.1) L* 08/11/23 09:03 Chloride 85 mmol/L (98-107) L 08/11/23 09:03 Carbon Dioxide 37.1 mmol/L (21-32) H 08/11/23 09:03 BUN 11 mg/dL (7-18) 08/11/23 09:03 Creatinine 0.66 mg/dL (0.55-1.02) 08/11/23 09:03 Est GFR (MDRD) Af Amer > 60 (>60) 08/11/23 09:03 Est GFR (MDRD) Non-Af > 60 (>60) 08/11/23 09:03 Glucose 94 mg/dL (65-99) 08/11/23 09:03 Calcium 8.2 mg/dL (8.5-10.1) L 08/11/23 09:03 Corrected Calcium 9.5 mg/dL (8.5-10.1) 08/11/23 09:03 Magnesium 1.3 mg/dL (2.0-2.9) L 08/11/23 09:03 Total Bilirubin 1.40 mg/dL (0.2-1.0) H 08/11/23 09:03 AST 74 Units/L (15-37) H 08/11/23 09:03 ALT 16 Units/L (12-78) 08/11/23 09:03 Alkaline Phosphatase 171 Units/L (46-116) H 08/11/23 09:03 Total Protein 6.4 g/dL (6.4-8.2) 08/11/23 09:03 Albumin 2.4 g/dL (3.4-5.0) L 08/11/23 09:03 Globulin 4.0 g/dL (2.5-4.5) 08/11/23 09:03 Albumin/Globulin Ratio 0.6 Ratio (1.1-2.1) L 08/11/23 09:03 Lipase 25 Units/L (16-77) 08/11/23 09:03 Vitamin B12 622 pg/mL (193-986) 08/11/23 09:03 Folate 5.6 ng/mL (>8.6) L 08/11/23 09:03 TSH 3rd Generation 0.995 uIU/mL (0.358-3.74) 08/11/23 09:03 Specimen Type Clean catch urine 08/11/23 12: Urine Color Yellow (YELLOW) 08/11/23 12: Urine Appearance Clear (CLEAR) 08/11/23 12: Urine pH 6.5 (5.0 - 8.0) 08/11/23 12: Ur Specific [place] 1.010 (1.000-1.030) 08/11/23 12: Urine Protein Negative (NEGATIVE) 08/11/23 12: Urine Glucose (UA) Negative (NEGATIVE) 08/11/23 12: Urine Ketones 1+ (NEGATIVE) 08/11/23 12: Urine Blood Negative (NEGATIVE) 08/11/23 12:29 Urine Nitrite Negative (NEGATIVE) 08/11/23 12:29 Urine Bilirubin Negative (NEGATIVE) 08/11/23 12:29 Urine Urobilinogen Normal (NORMAL) 08/11/23 12:29 Ur Leukocyte Esterase Negative (NEGATIVE) 08/11/23 12:29 Low potassium, low sodium, low magnesium XRAY XRAY Interpreted by: Self X-ray Results: Chest x-ray with right lower nodule. CT scans of the chest with IV contrast shows increased markings of the right lower lobe concerning for mass with postobstructive changes/atelectasis versus pneumonia. EXAM: CHEST WITH CONTRAST HISTORY: RLL MASS; PT STATES THAT SHE COULD NOT STAND UP THIS MORNING, HTN, ASTHMA COMPARISON: None. TECHNIQUE: CT of the chest was performed with intravenous contrast from the thoracic inlet through the upper abdomen FINDINGS: Thyroid gland is average size. There is an incidental sebaceous cyst of the ventral left chest wall measuring 16 mm. Mild cardiomegaly with multi chamber dilation and left ventricular wall hypertrophy. Multivessel coronary atherosclerosis is observed. Shotty subcarinal and right hilar lymph nodes may be reactive in etiology an approach 1 cm in maximum diameter. No other enlarged lymph nodes are seen the chest. Normal caliber thoracic aorta without dissection or saccular aneurysm. Atheromatous calcifications are associated with thoracic and abdominal aorta. The main pulmonary artery is dilated and measures approximately 3.5 cm. Though the study was not protocol for thromboembolism detection please note that there are no filling defects associated with main, lobar or proximal segmental pulmonary artery branches. There is no bronchiectasis, honeycombing, or reticulation. The study is degraded by patient associated motion artifact. There are regions consolidation without enhancement air bronchograms in keeping with pneumonia involving aspects of the medial segment of the right middle lobe and right lower lobe. There is a separate rounded area consolidation versus nodule within the right middle lobe lateral segment image 38 measuring 1.95 cm. Separately there is enhancing subsegmental atelectasis within the dependent aspect of the right lower. Right upper lobe is clear. There are mild emphysematous changes right apex consisting of paraseptal emphysema. The left lung is predominantly clear. Fatty infiltration of the liver. Lobular morphology of the liver capsule is observed. The gallbladder is surgically absent there is evidence of pneumobilia most likely surgical induced. Spleen measures approximately 11 cm AP and 11 cm craniocaudally. The adrenal glands are symmetric. Evaluation of the osseous structures reveals no aggressive bony lesions or acute osseous abnormalities. There is mild chronic height loss of the L2 and L3 vertebral body segments associated with chronic compression deformities. IMPRESSION: Right middle lobe and right lower lobe segmental pneumonia and superimposed atelectasis A superimposed 2 cm round opacity within the lateral segment of the right middle lobe may correspond to associated consolidation versus pulmonary nodule. After initial conservative treatment measures have been initiated a follow-up CT is suggested within 1 month to determine if this clears and to exclude an underlying pulmonary nodule Mild cardiomegaly with multi chamber dilation Dilated main pulmonary artery in keeping with pulmonary artery hypertension Hepatic steatosis and morphological features of chronic medical liver disease THIS IS AN ELECTRONICALLY VERIFIED FINAL REPORT 08/11/2023 12:47 PM - Electronically signed by Zain Rodriguez MD Opioid Opioid Risk Tool Age (Sudarshan box if 16-45): No History of Preadolescent Sexual Abuse: No Total: 0 Total Score Risk Category: Low Risk Copyright: [facility] predicting aberrant behaviors Discharge Plan Diagnosis Discharge Problem: Acute hypokalemia, Acute hyponatremia, Mass of right lung, Pneumonia Discharge Plan Patient Disposition: 09 ADMITTED INPATIENT Condition: Stable Prescriptions: No Action furosemide 20 mg tablet 20 mg PO QDAY PRN (Reason: for swelling) Qty: 30 2RF hydrochlorothiazide 12.5 mg capsule 12.5 mg PO QDAY Qty: 30 3RF amlodipine [Norvasc] 5 mg tablet 5 mg PO QDAY 30 Days Qty: 30 3RF carvedilol 12.5 mg tablet 12.5 mg PO BID omeprazole 40 mg capsule,delayed release(DR/EC) 40 mg PO QDAY oxycodone-acetaminophen 10-325 mg tablet 1 tab PO QID PRN (Reason: pain) fentanyl 25 mcg/hr patch 72 hour 1 patch transdermal Q3D pregabalin 150 mg capsule 150 mg PO BID PRN (Reason: pain) Health Concerns: Post Hospitalization: new medications and changes needed to prevent readmission or further decline. Pt educated and given instructions on all concerns. Plan of Treatment: Continue with present treatment and follow up plan. Pt is to keep follow up appointment as instructed and take medications as ordered. Orders to Discharge Patient Discharge Orders: Transfer (Routine); Ordered 08/11/23 Ordered By: Ari Estrada Follow ups/Referrals Follow ups/Referrals: Josr Parham [Primary Care Provider] - 3 days
[2023-08-11] MEDS ORDERED: NS 1,000 ML IV 1,000 ML IV ONE (08:49)
[2023-08-11 08:50] VITALS: BMI 20.5
[2023-08-11] MEDS ORDERED: SOLU-Medrol 125 MG VIAL IVP ONE (08:50)
[2023-08-11] MEDS ORDERED: NS 1,000 ML IV 1,000 ML ONE (08:52)
[2023-08-11] MEDS ORDERED: SOLU-Medrol 125 MG VIAL ONE (08:52)
[2023-08-11 09:12] LABS: HEMOGLOBIN 13.8 g/dL (12.0-16.0); RED CELL DISTRIBUTION WIDTH 13.4 % (11.6-16.5); WHITE BLOOD COUNT 7.1 X10^3/uL (3.6-10.0)
[2023-08-11 09:15] LABS: BASOPHILS % (AUTO) 0.6 % (0.2-1.0); EOSINOPHILS % (AUTO) 0.1 % (0.9-2.9); HEMATOCRIT 39.3 % (36.0-47.0); LYMPHOCYTES # (AUTO) 0.9 X10^3/uL (1.3-2.9); LYMPHOCYTES % (AUTO) 13.2 % (21.0-51.0); MEAN CORPUSCULAR HEMOGLOBIN 36.1 pg (27.0-34.0); MEAN CORPUSCULAR VOLUME 103.3 fL (80.0-100.0); MEAN PLATELET VOLUME 9.9 fL (7.4-11.0); MONOCYTES # (AUTO) 0.6 x10^3/uL (0.3-0.8); MONOCYTES % (AUTO) 7.9 % (0.0-13.0); NEUTROPHILS # (AUTO) 5.5 x10^3/uL (2.2-4.8); NEUTROPHILS % (AUTO) 78.2 % (42.0-75.0); PLATELET COUNT 92 X10^3/uL (150.0-450.0); RED BLOOD COUNT 3.81 X10^6/uL (3.5-5.4)
[2023-08-11 09:32] LABS: ALANINE AMINOTRANSFERASE 16 Units/L (12-78); ALBUMIN 2.4 g/dL (3.4-5.0); ALKALINE PHOSPHATASE 171 Units/L (46-116); ASPARTATE AMINO TRANSFERASE 74 Units/L (15-37); BLOOD UREA NITROGEN 11 mg/dL (7-18); CALCIUM 8.2 mg/dL (8.5-10.1); CARBON DIOXIDE 37.1 mmol/L (21-32); CHLORIDE 85 mmol/L (98-107); COR CA(FOR HYPOALB) 9.5 mg/dL (8.5-10.1); CREATININE 0.66 mg/dL (0.55-1.02); GLUCOSE 94 mg/dL (65-99); LIPASE 25 Units/L (16-77); MAGNESIUM 1.3 mg/dL (2.0-2.9); SODIUM 129 mmol/L (136-145); TOTAL PROTEIN 6.4 g/dL (6.4-8.2); TSH (3RD GENERATION) 0.995 uIU/mL (0.358-3.74); eGFR NON BLACK RACES > 60 (>60)
[2023-08-11 09:37] LABS: BAND NEUTROPHILS % 6 % (0-10); METAMYELOCYTES % 1; PLATELET MORPHOLOGY COMMENT NORMAL (NORMAL); STOMATOCYTES 1+; TARGET CELLS 1+
[2023-08-11 09:43] LABS: POTASSIUM 2.1 mmol/L (3.5-5.1)
[2023-08-11] MEDS ORDERED: K-DUR TAB 20 MEQ PO STA (09:45)
[2023-08-11] MEDS ORDERED: K-DUR TAB 20 MEQ PO ONE (09:48)
[2023-08-11] MEDS ORDERED: NS + KCL 40 MEQ/L 1,000 ML IV SCH (10:00)
[2023-08-11] MEDS ORDERED: NS 100 ML IV 100 ML ONE (10:00)
[2023-08-11] MEDS ORDERED: OMNIPAQUE 350 mg/mL 100 mL BTL 100 ML ONE (10:00)
[2023-08-11] MEDS ORDERED: LYRICA CAP 150 mg PO ONE (10:53)
[2023-08-11] MEDS ORDERED: PERCOCET TAB 5/325 MG ONE (10:58)
[2023-08-11] MEDS ORDERED: ROCEPHIN VIAL 1 GRAM IVP STA (11:01)
[2023-08-11] MEDS ORDERED: ROCEPHIN VIAL 1 GRAM ONE (11:12)
[2023-08-11] MEDS: PERCOCET TAB 5/325 MG PO PRN ×2 (11:18→21:33)
[2023-08-11 12:41] LABS: BILIRUBIN,URINE NEGATIVE (NEGATIVE); BLOOD/HEMOGLOBIN,URINE NEGATIVE (NEGATIVE); GLUCOSE, URINE NEGATIVE (NEGATIVE); KETONES,URINE 1+ (NEGATIVE); LEUKOCYTE ESTERASE ,URINE NEGATIVE (NEGATIVE); NITRITES,URINE NEGATIVE (NEGATIVE); PH,URINE 6.5 (5.0 - 8.0); PROTEIN,URINE NEGATIVE (NEGATIVE); UROBILINOGEN,URINE NORMAL (NORMAL)
--- NOTE | 2023-08-11 12:51 | CT ---
EXAM:CHEST WITH CONTRASTHISTORY:RLL MASS; PT STATES THAT SHE COULD NOT STAND UP THIS MORNING, HTN, ASTHMACOMPARISON:None.TECHNIQUE:CT of the chest was performed with intravenous contrast from the thoracic inlet through the upper abdomenFINDINGS:Thyroid gland is average size. There is an incidental sebaceous cyst of the ventral left chest wall measuring 16 mm.Mild cardiomegaly with multi chamber dilation and left ventricular wall hypertrophy. Multivessel coronary atherosclerosis is observed.Shotty subcarinal and right hilar lymph nodes may be reactive in etiology an approach 1 cm in maximum diameter. No other enlarged lymph nodes are seen the chest.Normal caliber thoracic aorta without dissection or saccular aneurysm. Atheromatous calcifications are associated with thoracic and abdominal aorta. The main pulmonary artery is dilated and measures approximately 3.5 cm. Though the study was not protocol for thromboembolism detection please note that there are no filling defects associated with main, lobar or proximal segmental pulmonary artery branches.There is no bronchiectasis, honeycombing, or reticulation.The study is degraded by patient associated motion artifact. There are regions consolidation without enhancement air bronchograms in keeping with pneumonia involving aspects of the medial segment of the right middle lobe and right lower lobe. There is a separate rounded area consolidation versus nodule within the right middle lobe lateral segment image 38 measuring 1.95 cm. Separately there is enhancing subsegmental atelectasis within the dependent aspect of the right lower. Right upper lobe is clear. There are mild emphysematous changes right apex consisting of paraseptal emphysema. The left lung is predominantly clear.Fatty infiltration of the liver. Lobular morphology of the liver capsule is observed. The gallbladder is surgically absent there is evidence of pneumobilia most likely surgical induced. Spleen measures approximately 11 cm AP and 11 cm craniocaudally. The adrenal glands are symmetric.Evaluation of the osseous structures reveals no aggressive bony lesions or acute osseous abnormalities. There is mild chronic height loss of the L2 and L3 vertebral body segments associated with chronic compression deformities.IMPRESSION:Right middle lobe and right lower lobe segmental pneumonia and superimposed atelectasisA superimposed 2 cm round opacity within the lateral segment of the right middle lobe may correspond to associated consolidation versus pulmonary nodule. After initial conservative treatment measures have been initiated a follow-up CT is suggested within 1 month to determine if this clears and to exclude an underlying pulmonary noduleMild cardiomegaly with multi chamber dilationDilated main pulmonary artery in keeping with pulmonary artery hypertensionHepatic steatosis and morphological features of chronic medical liver diseaseTHIS IS AN ELECTRONICALLY VERIFIED FINAL [id number]/2023 12:47 PM - Electronically signed by Zain Rodriguez MD
[2023-08-11 12:54] LABS: APPEARANCE,URINE CLEAR (CLEAR); COLOR,URINE YELLOW (YELLOW)
[2023-08-11] MEDS ORDERED: CONSULT PHARMACY - POTASSIUM & MAGNESIUM XX SCH ×2 (13:36)
[2023-08-11] MEDS ORDERED: PATIENT'S HOME MEDICATION (Oxycodone-Acetaminophen 10-325 mg tablet) PO PRN (13:36)
[2023-08-11] MEDS ORDERED: ROCEPHIN VIAL 1 GRAM 1 G in NS 100 ML IV 100 ML IV SCH (13:36)
[2023-08-11] MEDS ORDERED: DUONEB 0.5 MG/3 MG (3 mL) NEB PRN (14:22)
[2023-08-11] MEDS: MAG-OX TAB PO SCH ×3 (15:18→18:00)
--- NOTE | 2023-08-11 15:28 | RAD ---
EXAM:CHEST, 1 VIEWHISTORY:COPD WEAKNESS;COMPARISON:None.TECHNIQUE:Marilin ble chest radiographFINDINGS:Infiltrates right middle lobe, right lower lobe in keeping with pneumonia. Rounded opacity also seen within the right lung base measuring approximately 2 cm. Left lung is predominantly clear. Normal heart size.IMPRESSION:Right lower lobe/right middle lobe bronchopneumonia. Short-term follow-up suggested to monitor clearanceA rounded opacity within the right lung base could be associated with the same infiltrative process of pneumonia but should be followed up closely to exclude superimposed pulmonary nodule.THIS IS AN ELECTRONICALLY VERIFIED FINAL [id number]/2023 3:07 PM - Electronically signed by Zain Rodriguez MD
[2023-08-11] MEDS: NS + KCL 40 MEQ/L 1,000 ML with MAGNESIUM SULFATE 50% INJ VIAL 1 G IV SCH ×2 (17:00)
[2023-08-11] MEDS: COREG TAB 12.5 MG PO SCH (21:28)
[2023-08-12] MEDS: NS + KCL 40 MEQ/L 1,000 ML with MAGNESIUM SULFATE 50% INJ VIAL 1 G IV SCH ×6 (02:14→16:01)
[2023-08-12 06:04] LABS: BASOPHILS % (AUTO) 0.4 % (0.2-1.0); HEMATOCRIT 33.9 % (36.0-47.0); LYMPHOCYTES # (AUTO) 1.3 X10^3/uL (1.3-2.9); LYMPHOCYTES % (AUTO) 13.5 % (21.0-51.0); MEAN CORPUSCULAR HGB CONC 34.2 g/dL (33.0-35.0); MEAN CORPUSCULAR VOLUME 105.2 fL (80.0-100.0); MONOCYTES # (AUTO) 0.8 x10^3/uL (0.3-0.8); MONOCYTES % (AUTO) 8.3 % (0.0-13.0); NEUTROPHILS # (AUTO) 7.3 x10^3/uL (2.2-4.8); NEUTROPHILS % (AUTO) 77.8 % (42.0-75.0); PLATELET COUNT 85 X10^3/uL (150.0-450.0); RED BLOOD COUNT 3.22 X10^6/uL (3.5-5.4); RED CELL DISTRIBUTION WIDTH 13.8 % (11.6-16.5); WHITE BLOOD COUNT 9.3 X10^3/uL (3.6-10.0)
[2023-08-12 06:13] LABS: HEMOGLOBIN 11.6 g/dL (12.0-16.0)
[2023-08-12 06:21] LABS: ALANINE AMINOTRANSFERASE 11 Units/L (12-78); ALBUMIN 1.9 g/dL (3.4-5.0); ALKALINE PHOSPHATASE 113 Units/L (46-116); ASPARTATE AMINO TRANSFERASE 37 Units/L (15-37); BLOOD UREA NITROGEN 8 mg/dL (7-18); CALCIUM 7.4 mg/dL (8.5-10.1); CARBON DIOXIDE 35.4 mmol/L (21-32); CHLORIDE 100 mmol/L (98-107); COR CA(FOR HYPOALB) 9.1 mg/dL (8.5-10.1); CREATININE 0.41 mg/dL (0.55-1.02); GLUCOSE 104 mg/dL (65-99); POTASSIUM 3.2 mmol/L (3.5-5.1); SODIUM 139 mmol/L (136-145); TOTAL PROTEIN 5.7 g/dL (6.4-8.2); eGFR NON BLACK RACES > 60 (>60)
[2023-08-12 06:35] LABS: PLATELET MORPHOLOGY COMMENT NORMAL (NORMAL); TARGET CELLS SLIGHT
[2023-08-12] MEDS: MAG-OX TAB PO SCH (06:57)
[2023-08-12] MEDS ORDERED: CONSULT PHARMACY - POTASSIUM & MAGNESIUM XX SCH (07:00)
--- NOTE | 2023-08-12 07:26 | DR.H&P ---
H&P History & Physical for Day of: H&P Date: 08/11/23 Chief Complaint Chief Complaint: Generalized weakness Cough, shortness of breath Allergies Allergies Allergy/AdvReac Type Severity Reaction Status Date / Time lisinopril Allergy Unknown Verified 08/11/23 09:23 History of Present Illness History of Present Illness: Patient is a 57-year-old female with a past medical history of COPD, degenerative disc disease, hypertension, GERD, presenting with gradual weakness, shortness of breath, cough for the past 2 to 3 days. Labs/imaging: WBC 7.1, hemoglobin 13.8, platelets 92, sodium 129, potassium 2.1, creatinine 0.66, glucose 94, TSH 0.995, magnesium 1.3, folate 5.6, B12 622, lipase 25. CT chest was obtained that revealed: Right middle lobe and right lower lobe segmental pneumonia and superimposed atelectasis. A superimposed 2 cm round opacity within the lateral segment of the right middle lobe may correspond to associated consolidation versus pulmonary nodule. Patient was admitted for pneumonia, COPD exacerbation, and electrolyte abnormalities. Received 1L IVF with potassium, will continue IVF NS@KVO. Started on antibiotics IV Rocephin 1 g daily. Magnesium and potassium will be repleted per protocol. Scheduled bronchodilators. Order AIT swab and smart vest. Will restart home medications. Hold Hydrochlorothiazide. Otherwise continue closely monitor and follow-up labs/imaging. Past Medical History Past Medical History: Hypertension Past Surgical History Surgical History: Cholecystectomy Family History Family Medical History: Cancer, Coronary Artery Disease, Heart Failure and Hypertension Social History Does patient currently use any type of tobacco product: Yes Have you used tobacco products in the last 12 months: Yes Type of Tobacco Use: Cigarettes Does any household member use tobacco: Yes Alcohol Use: None Drug Use: None Medications Home Medications: Home Medications Medication Instructions Recorded Confirmed Type carvedilol 12.5 mg tablet 12.5 mg PO BID 08/11/23 08/11/23 History fentanyl 25 mcg/hr transdermal 1 patch transdermal Q3D 08/11/23 08/11/23 History patch omeprazole 40 mg capsule,delayed 40 mg PO QDAY 08/11/23 08/11/23 History release oxycodone-acetaminophen 10 mg-325 1 tab PO QID PRN pain 08/11/23 08/11/23 History mg tablet pregabalin 150 mg capsule 150 mg PO BID PRN pain 10/26/23 10/26/23 History Labs 08/12/23 05:40 08/12/23 05:40 Labs: Laboratory WBC 9.3 X10^3/uL (3.6-10.0) 08/12/23 05:40 RBC 3.22 X10^6/uL (3.5-5.4) L 08/12/23 05:40 Hgb 11.6 g/dL (12.0-16.0) L D 08/12/23 05:40 Hct 33.9 % (36.0-47.0) L 08/12/23 05:40 MCV 105.2 fL (80.0-100.0) H 08/12/23 05:40 MCH 36.0 pg (27.0-34.0) H 08/12/23 05:40 MCHC 34.2 g/dL (33.0-35.0) 08/12/23 05:40 RDW 13.8 % (11.6-16.5) 08/12/23 05:40 Plt Count 85 X10^3/uL (150.0-450.0) L 08/12/23 05:40 Plt Count Comment Decreased (ADEQUATE) A 08/12/23 05:40 MPV 10.0 fL (7.4-11.0) 08/12/23 05:40 Neut % (Auto) 77.8 % (42.0-75.0) H 08/12/23 05:40 Lymph % (Auto) 13.5 % (21.0-51.0) L 08/12/23 05:40 [place] % (Auto) 8.3 % (0.0-13.0) 08/12/23 05:40 Eos % (Auto) 0.0 % (0.9-2.9) L 08/12/23 05:40 Baso % (Auto) 0.4 % (0.2-1.0) 08/12/23 05:40 Neut # (Auto) 7.3 x10^3/uL (2.2-4.8) H 08/12/23 05:40 Lymph # (Auto) 1.3 X10^3/uL (1.3-2.9) 08/12/23 05:40 [place] # (Auto) 0.8 x10^3/uL (0.3-0.8) 08/12/23 05:40 Eos # (Auto) 0.0 x10^3/uL (0.0-0.2) 08/12/23 05:40 Baso # (Auto) 0.0 X10^3/uL (0.0-0.1) 08/12/23 05:40 Absolute Nucleated RBC 0.0 /100WBC 08/12/23 05:40 Total Counted 100 08/11/23 09:03 Neutrophils % (Manual) 73 % (39-76) 08/11/23 09:03 Band Neutrophils % 6 % (0-10) 08/11/23 09:03 Lymphocytes % (Manual) 12 % (13-43) L 08/11/23 09:03 Monocytes % (Manual) 8 % (4-9) 08/11/23 09:03 Metamyelocytes % 1 08/11/23 09:03 Plt Morphology Comment Normal (NORMAL) 08/12/23 05:40 RBC Morphology Abnormal (NORMAL) A 08/12/23 05:40 Macrocytosis 1+ A 08/12/23 05:40 Target Cells Slight A 08/12/23 05:40 Stomatocytes 1+ A 08/11/23 09:03 Sodium 139 mmol/L (136-145) 08/12/23 05:40 Corrected Sodium TNP 08/12/23 05:40 Potassium 3.2 mmol/L (3.5-5.1) L 08/12/23 05:40 Chloride 100 mmol/L (98-107) 08/12/23 05:40 Carbon Dioxide 35.4 mmol/L (21-32) H 08/12/23 05:40 BUN 8 mg/dL (7-18) 08/12/23 05:40 Creatinine 0.41 mg/dL (0.55-1.02) L 08/12/23 05:40 Est GFR (MDRD) Af Amer > 60 (>60) 08/12/23 05:40 Est GFR (MDRD) Non-Af > 60 (>60) 08/12/23 05:40 Glucose 104 mg/dL (65-99) H 08/12/23 05:40 POC Glucose (mg/dL) 203 mg/dL (65-99) H 08/11/23 17:22 Calcium 7.4 mg/dL (8.5-10.1) L 08/12/23 05:40 Corrected Calcium 9.1 mg/dL (8.5-10.1) 08/12/23 05:40 Magnesium 2.3 mg/dL (2.0-2.9) 08/12/23 05:40 Total Bilirubin 0.40 mg/dL (0.2-1.0) 08/12/23 05:40 AST 37 Units/L (15-37) 08/12/23 05:40 ALT 11 Units/L (12-78) L 08/12/23 05:40 Alkaline Phosphatase 113 Units/L (46-116) 08/12/23 05:40 Total Protein 5.7 g/dL (6.4-8.2) L 08/12/23 05:40 Albumin 1.9 g/dL (3.4-5.0) L 08/12/23 05:40 Globulin 3.8 g/dL (2.5-4.5) 08/12/23 05:40 Albumin/Globulin Ratio 0.5 Ratio (1.1-2.1) L 08/12/23 05:40 Lipase 25 Units/L (16-77) 08/11/23 09:03 Vitamin B12 622 pg/mL (193-986) 08/11/23 09:03 Folate 5.6 ng/mL (>8.6) L 08/11/23 09:03 TSH 3rd Generation 0.995 uIU/mL (0.358-3.74) 08/11/23 09:03 Specimen Type Clean catch urine 08/11/23 12:29 Urine Color Yellow (YELLOW) 08/11/23 12: Urine Appearance Clear (CLEAR) 08/11/23 12: Urine pH 6.5 (5.0 - 8.0) 08/11/23 12: Ur Specific [place] 1.010 (1.000-1.030) 08/11/23 12: Urine Protein Negative (NEGATIVE) 08/11/23 12: Urine Glucose (UA) Negative (NEGATIVE) 08/11/23 12: Urine Ketones 1+ (NEGATIVE) 08/11/23 12: Urine Blood Negative (NEGATIVE) 08/11/23 12:29 Urine Nitrite Negative (NEGATIVE) 08/11/23 12:29 Urine Bilirubin Negative (NEGATIVE) 08/11/23 12:29 Urine Urobilinogen Normal (NORMAL) 08/11/23 12:29 Ur Leukocyte Esterase Negative (NEGATIVE) 08/11/23 12:29 Review of Systems Constitutional: Weakness Eyes: No Symptoms Reported ENT: No Symptoms Reported Respiratory: Cough, Shortness of Breath, Sputum and Wheezing Cardiovascular: No Symptoms Reported Gastrointestinal: No Symptoms Reported Genitourinary: No Symptoms Reported Musculoskeletal: No Symptoms Reported Skin: No Symptoms Reported Neurological: No Symptoms Reported Physical Exam Vital Signs: Vital Signs Temperature 98.1 F Temperature 98.6 F Pulse Rate [Left Brachial] 86 Pulse Rate [Left Brachial] 77 Respiratory Rate 21 Respiratory Rate 18 Blood Pressure [Left Arm] 99/66 O2 Sat by Pulse Oximetry 93 O2 Sat by Pulse Oximetry 95 Oriented: Normal Eyes: Normal Ear: Normal Nose: Normal Throat: Normal Respiratory: Diminished Throughout, Rhonchi Throughout, RML Rales and RLL Rales Cardiovascular: Normal : Normal Auscultation: Bowel Sounds: Normal Palpation: Normal Tenderness: Normal Skin: Normal Musculoskeletal: Normal Psychiatric: Normal Mood Description: Calm and Appropriate Affect: Normal Speech Pattern: Clear and Appropriate Assessment/Plan (1) Pneumonia: Narrative Support Text: IV antibiotics, Bronchodilators. AIT swab pending Status: Acute (2) COPD exacerbation: Status: Acute (3) Acute hyponatremia: Status: Acute (4) Acute hypokalemia: Narrative Support Text: Replete per protocol. Status: Acute (5) Degeneration of intervertebral disc of lumbar region: Status: None (6) Gastroesophageal reflux disease: Status: None (7) Benign hypertension: Status: None (8) Lung nodule: Status: None Review H&P Reviewed: Yes Patient was examined?: Yes
[2023-08-12] MEDS: PERCOCET TAB 5/325 MG PO PRN ×3 (07:48→20:49)
[2023-08-12] MEDS ORDERED: NS 1,000 ML IV 1,000 ML IV SCH (08:00)
[2023-08-12] MEDS: NORVASC TAB 5 MG PO SCH (09:47)
[2023-08-12] MEDS: PriLOSEC PO SCH (09:47)
[2023-08-12] MEDS: K-DUR TAB 20 MEQ PO SCH ×2 (09:47→12:19)
[2023-08-12] MEDS: COREG TAB 12.5 MG PO SCH ×2 (09:47→21:59)
[2023-08-12] MEDS: FOLIC ACID TAB 1 MG PO SCH (09:47)
[2023-08-12] MEDS: LEVAQUIN PREMIX IV 750 MG 750 MG/150 ML BAG IV SCH (10:04)
[2023-08-12] MEDS: LYRICA CAP 150 mg PO PRN ×2 (10:05→18:32)
--- NOTE | 2023-08-12 14:00 | RAD ---
EXAM:CHEST, 1 VIEWHISTORY:PNEUMONIA ;COMPARISON:August 11, 2023 chest x-ray and CT chest.FINDINGS:Mild cardiomegaly.[id number] right upper lobe and apical opacity noted worse than 1 day prior on August 11 2023 May represent postobstructive atelectasisMany of the findings on the CT of August 11, 2023 are not evident and below the threshold of plain radiography.No pneumothorax or effusion.The bony thorax appears age appropriate.IMPRESSION:Mild cardiomegaly.[id number] right upper lobe and apical opacity noted worse than 1 day prior on August 11 2023 May represent postobstructive atelectasisTHIS IS AN ELECTRONICALLY VERIFIED FINAL [id number]/12/2023 1:56 PM - Electronically signed by Sanya Clinton DO
--- NOTE | 2023-08-12 19:03 | PCM.PROG ---
Progress Note Progress Note for Day of Date of Exam: 08/12/23 Subjective Subjective: Patient is a 57-year-old female with a past medical history of COPD, degenerative disc disease, hypertension, GERD, admitted for pneumonia, COPD exacerbation, and electrolyte abnormalities. Patient reports improvement of symptoms. No acute events overnight. Labs/imaging: WBC 9.3, hemoglobin 11.6, platelets 85, sodium 139, potassium 3.2, creatinine 0.41, glucose 104. Chest x- ray was obtained that revealed: Mild cardiomegaly. Qbwzssfi-[id number] right upper lobe and apical opacity noted worse than 1 day prior on August 11 2023 May represent postobstructive atelectasis. Patient was admitted for pneumonia, COPD exacerbation, and electrolyte abnormalities. Pt is currently on IVF NS@K VO. Will discontinue Rocephin and start on IV Levaquin. Magnesium and potassium will be repleted per protocol. Scheduled bronchodilators. AIT swab pending. Smart vest ordered. Home medications have been resumed. Hold Hydrochlorothiazide. Otherwise continue closely monitor and follow-up labs/imaging. Past Medical Family Social History Allergies: Allergies lisinopril Allergy (Unknown, Verified 08/11/23 09:23) Reason: Drug allergy Review of Systems ROS changes noted: see HPI Vital Signs and I&O's Vital Signs: Vital Signs Temperature 97.8 F Pulse Rate [Left Brachial] 85 Respiratory Rate 21 Respiratory Rate 18 Respiratory Rate 21 Blood Pressure [Left Arm] 105/72 O2 Sat by Pulse Oximetry 96 Intake and Output: Intake & Output 08/09/23 08/10/23 08/11/23 08/12/23 23:59 23:59 23:59 23:59 Intake Total 1682 / 1682 1800 / 1800 Output Total 302 / 302 Balance 1380 / 1380 1800 / 1800 Physical Exam Oriented: Normal Eyes: Normal Ear: Normal Nose: Normal Throat: Normal Respiratory: Normal Cardiovascular: Normal : Normal Auscultation: Bowel Sounds: Normal Tenderness: Normal Skin: Normal Musculoskeletal: Normal Psychiatric: Normal Mood Description: Calm and Appropriate Affect: Normal Speech Pattern: Clear and Appropriate Laboratory and Diagnostics 08/12/23 05:40 08/12/23 05:40 Labs: Laboratory WBC 9.3 X10^3/uL (3.6-10.0) 08/12/23 05:40 RBC 3.22 X10^6/uL (3.5-5.4) L 08/12/23 05:40 Hgb 11.6 g/dL (12.0-16.0) L D 08/12/23 05:40 Hct 33.9 % (36.0-47.0) L 08/12/23 05:40 MCV 105.2 fL (80.0-100.0) H 08/12/23 05:40 MCH 36.0 pg (27.0-34.0) H 08/12/23 05:40 MCHC 34.2 g/dL (33.0-35.0) 08/12/23 05:40 RDW 13.8 % (11.6-16.5) 08/12/23 05:40 Plt Count 85 X10^3/uL (150.0-450.0) L 08/12/23 05:40 Plt Count Comment Decreased (ADEQUATE) A 08/12/23 05:40 MPV 10.0 fL (7.4-11.0) 08/12/23 05:40 Neut % (Auto) 77.8 % (42.0-75.0) H 08/12/23 05:40 Lymph % (Auto) 13.5 % (21.0-51.0) L 08/12/23 05:40 [place] % (Auto) 8.3 % (0.0-13.0) 08/12/23 05:40 Eos % (Auto) 0.0 % (0.9-2.9) L 08/12/23 05:40 Baso % (Auto) 0.4 % (0.2-1.0) 08/12/23 05:40 Neut # (Auto) 7.3 x10^3/uL (2.2-4.8) H 08/12/23 05:40 Lymph # (Auto) 1.3 X10^3/uL (1.3-2.9) 08/12/23 05:40 [place] # (Auto) 0.8 x10^3/uL (0.3-0.8) 08/12/23 05:40 Eos # (Auto) 0.0 x10^3/uL (0.0-0.2) 08/12/23 05:40 Baso # (Auto) 0.0 X10^3/uL (0.0-0.1) 08/12/23 05:40 Absolute Nucleated RBC 0.0 /100WBC 08/12/23 05:40 Total Counted 100 08/11/23 09:03 Neutrophils % (Manual) 73 % (39-76) 08/11/23 09:03 Band Neutrophils % 6 % (0-10) 08/11/23 09:03 Lymphocytes % (Manual) 12 % (13-43) L 08/11/23 09:03 Monocytes % (Manual) 8 % (4-9) 08/11/23 09:03 Metamyelocytes % 1 08/11/23 09:03 Plt Morphology Comment Normal (NORMAL) 08/12/23 05:40 RBC Morphology Abnormal (NORMAL) A 08/12/23 05:40 Macrocytosis 1+ A 08/12/23 05:40 Target Cells Slight A 08/12/23 05:40 Stomatocytes 1+ A 08/11/23 09:03 Sodium 139 mmol/L (136-145) 08/12/23 05:40 Corrected Sodium TNP 08/12/23 05:40 Potassium 3.2 mmol/L (3.5-5.1) L 08/12/23 05:40 Chloride 100 mmol/L (98-107) 08/12/23 05:40 Carbon Dioxide 35.4 mmol/L (21-32) H 08/12/23 05:40 BUN 8 mg/dL (7-18) 08/12/23 05:40 Creatinine 0.41 mg/dL (0.55-1.02) L 08/12/23 05:40 Est GFR (MDRD) Af Amer > 60 (>60) 08/12/23 05:40 Est GFR (MDRD) Non-Af > 60 (>60) 08/12/23 05:40 Glucose 104 mg/dL (65-99) H 08/12/23 05:40 POC Glucose (mg/dL) 117 mg/dL (65-99) H 08/12/23 11:51 Calcium 7.4 mg/dL (8.5-10.1) L 08/12/23 05:40 Corrected Calcium 9.1 mg/dL (8.5-10.1) 08/12/23 05:40 Magnesium 2.3 mg/dL (2.0-2.9) 08/12/23 05:40 Total Bilirubin 0.40 mg/dL (0.2-1.0) 08/12/23 05:40 AST 37 Units/L (15-37) 08/12/23 05:40 ALT 11 Units/L (12-78) L 08/12/23 05:40 Alkaline Phosphatase 113 Units/L (46-116) 08/12/23 05:40 Total Protein 5.7 g/dL (6.4-8.2) L 08/12/23 05:40 Albumin 1.9 g/dL (3.4-5.0) L 08/12/23 05:40 Globulin 3.8 g/dL (2.5-4.5) 08/12/23 05:40 Albumin/Globulin Ratio 0.5 Ratio (1.1-2.1) L 08/12/23 05:40 Lipase 25 Units/L (16-77) 08/11/23 09:03 Vitamin B12 622 pg/mL (193-986) 08/11/23 09:03 Folate 5.6 ng/mL (>8.6) L 08/11/23 09:03 TSH 3rd Generation 0.995 uIU/mL (0.358-3.74) 08/11/23 09:03 Specimen Type Clean catch urine 08/11/23 12: Urine Color Yellow (YELLOW) 08/11/23 12: Urine Appearance Clear (CLEAR) 08/11/23 12: Urine pH 6.5 (5.0 - 8.0) 08/11/23 12: Ur Specific [place] 1.010 (1.000-1.030) 08/11/23 12: Urine Protein Negative (NEGATIVE) 08/11/23 12: Urine Glucose (UA) Negative (NEGATIVE) 08/11/23 12: Urine Ketones 1+ (NEGATIVE) 08/11/23 12: Urine Blood Negative (NEGATIVE) 08/11/23 12: Urine Nitrite Negative (NEGATIVE) 08/11/23 12: Urine Bilirubin Negative (NEGATIVE) 08/11/23 12: Urine Urobilinogen Normal (NORMAL) 08/11/23 12: Ur Leukocyte Esterase Negative (NEGATIVE) 08/11/23 12: Plan (1) Pneumonia: Status: Acute (2) COPD exacerbation: Status: Acute (3) Acute hyponatremia: Status: Acute (4) Acute hypokalemia: Status: Acute (5) Degeneration of intervertebral disc of lumbar region: Status: None (6) Gastroesophageal reflux disease: Status: None (7) Benign hypertension: Status: None (8) Lung nodule: Status: None
[2023-08-13] MEDS: NS + KCL 40 MEQ/L 1,000 ML with MAGNESIUM SULFATE 50% INJ VIAL 1 G IV SCH ×6 (02:36→18:23)
[2023-08-13] MEDS: PERCOCET TAB 5/325 MG PO PRN ×3 (04:44→20:34)
[2023-08-13 05:25] LABS: BASOPHILS % (AUTO) 0.7 % (0.2-1.0); EOSINOPHILS # (AUTO) 0.1 x10^3/uL (0.0-0.2); EOSINOPHILS % (AUTO) 1.2 % (0.9-2.9); HEMATOCRIT 33.7 % (36.0-47.0); HEMOGLOBIN 11.3 g/dL (12.0-16.0); LYMPHOCYTES # (AUTO) 1.2 X10^3/uL (1.3-2.9); MEAN CORPUSCULAR HGB CONC 33.7 g/dL (33.0-35.0); MEAN CORPUSCULAR VOLUME 107.1 fL (80.0-100.0); MEAN PLATELET VOLUME 10.1 fL (7.4-11.0); MONOCYTES # (AUTO) 0.3 x10^3/uL (0.3-0.8); MONOCYTES % (AUTO) 4.9 % (0.0-13.0); NEUTROPHILS # (AUTO) 3.8 x10^3/uL (2.2-4.8); NEUTROPHILS % (AUTO) 71.2 % (42.0-75.0); PLATELET COUNT 86 X10^3/uL (150.0-450.0); RED BLOOD COUNT 3.15 X10^6/uL (3.5-5.4); RED CELL DISTRIBUTION WIDTH 13.8 % (11.6-16.5); WHITE BLOOD COUNT 5.3 X10^3/uL (3.6-10.0)
[2023-08-13 05:34] LABS: PLATELET MORPHOLOGY COMMENT NORMAL (NORMAL); TARGET CELLS 1+
[2023-08-13 05:38] LABS: ALANINE AMINOTRANSFERASE 14 Units/L (12-78); ALBUMIN 1.8 g/dL (3.4-5.0); ALKALINE PHOSPHATASE 116 Units/L (46-116); ASPARTATE AMINO TRANSFERASE 57 Units/L (15-37); BLOOD UREA NITROGEN 7 mg/dL (7-18); CALCIUM 7.4 mg/dL (8.5-10.1); CARBON DIOXIDE 30.6 mmol/L (21-32); CHLORIDE 106 mmol/L (98-107); COR CA(FOR HYPOALB) 9.2 mg/dL (8.5-10.1); CREATININE 0.42 mg/dL (0.55-1.02); GLUCOSE 88 mg/dL (65-99); POTASSIUM 5.1 mmol/L (3.5-5.1); SODIUM 138 mmol/L (136-145); TOTAL PROTEIN 5.5 g/dL (6.4-8.2); eGFR NON BLACK RACES > 60 (>60)
[2023-08-13] MEDS: NORVASC TAB 5 MG PO SCH (08:25)
[2023-08-13] MEDS: LYRICA CAP 150 mg PO PRN ×2 (08:25→20:33)
[2023-08-13] MEDS: PriLOSEC PO SCH (08:25)
[2023-08-13] MEDS: COREG TAB 12.5 MG PO SCH ×2 (08:25→20:33)
[2023-08-13] MEDS: FOLIC ACID TAB 1 MG PO SCH (08:25)
[2023-08-13] MEDS: LEVAQUIN PREMIX IV 750 MG 750 MG/150 ML BAG IV SCH (08:31)
--- NOTE | 2023-08-13 10:38 | RAD ---
EXAM:AP chestHISTORY:PneumoniaCOMPARISON:August 12, 2023FINDINGS:There is increasing opacity in the right upper lobe with volume loss, increasing elevation of the minor fissure. The heart is not enlarged and the left lung remains clear.IMPRESSION:Increasing opacification with some degree of volume loss in the right upper lung consistent with pneumonia/atelectasis. Continued follow-up recommended.THIS IS AN ELECTRONICALLY VERIFIED FINAL [id number]/13/2023 10:20 AM - Electronically signed by Christopher Arshad MD
[2023-08-13] MEDS ORDERED: COLACE CAP 100 MG PO PRN (20:06)
[2023-08-14] MEDS: NS + KCL 40 MEQ/L 1,000 ML with MAGNESIUM SULFATE 50% INJ VIAL 1 G IV SCH ×4 (04:58→09:35)
[2023-08-14] MEDS: PERCOCET TAB 5/325 MG PO PRN ×2 (05:32→14:48)
[2023-08-14 05:40] LABS: BASOPHILS # (AUTO) 0.1 X10^3/uL (0.0-0.1); BASOPHILS % (AUTO) 1.2 % (0.2-1.0); EOSINOPHILS # (AUTO) 0.1 x10^3/uL (0.0-0.2); EOSINOPHILS % (AUTO) 2.2 % (0.9-2.9); HEMATOCRIT 36.6 % (36.0-47.0); HEMOGLOBIN 12.1 g/dL (12.0-16.0); LYMPHOCYTES # (AUTO) 1.4 X10^3/uL (1.3-2.9); LYMPHOCYTES % (AUTO) 23.7 % (21.0-51.0); MEAN CORPUSCULAR HEMOGLOBIN 35.7 pg (27.0-34.0); MEAN CORPUSCULAR HGB CONC 33.1 g/dL (33.0-35.0); MEAN CORPUSCULAR VOLUME 107.8 fL (80.0-100.0); MEAN PLATELET VOLUME 9.9 fL (7.4-11.0); MONOCYTES # (AUTO) 0.3 x10^3/uL (0.3-0.8); MONOCYTES % (AUTO) 5.2 % (0.0-13.0); NEUTROPHILS % (AUTO) 67.7 % (42.0-75.0); PLATELET COUNT 106 X10^3/uL (150.0-450.0); RED CELL DISTRIBUTION WIDTH 14.4 % (11.6-16.5); WHITE BLOOD COUNT 5.9 X10^3/uL (3.6-10.0)
[2023-08-14 05:47] LABS: ALANINE AMINOTRANSFERASE 22 Units/L (12-78); ALKALINE PHOSPHATASE 166 Units/L (46-116); ASPARTATE AMINO TRANSFERASE 84 Units/L (15-37); BLOOD UREA NITROGEN 5 mg/dL (7-18); CALCIUM 7.7 mg/dL (8.5-10.1); CARBON DIOXIDE 28.8 mmol/L (21-32); CHLORIDE 104 mmol/L (98-107); COR CA(FOR HYPOALB) 9.3 mg/dL (8.5-10.1); CREATININE 0.39 mg/dL (0.55-1.02); GLUCOSE 78 mg/dL (65-99); POTASSIUM 5.3 mmol/L (3.5-5.1); SODIUM 135 mmol/L (136-145); eGFR NON BLACK RACES > 60 (>60)
[2023-08-14 05:49] LABS: PLATELET MORPHOLOGY COMMENT NORMAL (NORMAL); STOMATOCYTES SLIGHT
[2023-08-14 05:50] LABS: TARGET CELLS 1+
--- NOTE | 2023-08-14 08:37 | PCM.PROG ---
Progress Note Progress Note for Day of Date of Exam: 08/13/23 Subjective Subjective: Patient is a 57-year-old female with a past medical history of COPD, degenerative disc disease, hypertension, GERD, admitted for pneumonia, COPD exacerbation, and electrolyte abnormalities. This morning she continues to improve. Reports her strength has been returning and breathing better. No acute events overnight. Labs/imaging: WBC 5.3, hemoglobin 11.3, platelets 86, sodium 138, potassium 5.1, creatinine 0.42, glucose 88. Pt is being treated with pneumonia, COPD exacerbation, and electrolyte abnormalities. Pt is currently on IVF NS@KVO, continue IV Levaquin. Magnesium and potassium will be repleted per protocol. Scheduled bronchodilators. AIT swab pending. Smart vest ordered. Home medications have been resumed. Hold Hydrochlorothiazide. Will do walk test. Otherwise continue closely monitor and follow-up labs/imaging. Past Medical Family Social History Allergies: Allergies lisinopril Allergy (Unknown, Verified 08/11/23 09:23) Reason: Drug allergy Review of Systems ROS changes noted: see HPI Vital Signs and I&O's Vital Signs: Vital Signs Temperature 98.7 F Pulse Rate [Left Brachial] 91 Respiratory Rate 22 Respiratory Rate 20 Respiratory Rate 20 Blood Pressure [Left Arm] 160/80 O2 Sat by Pulse Oximetry 95 Intake and Output: Intake & Output 08/11/23 08/12/23 08/13/23 08/14/23 23:59 23:59 23:59 23:59 Intake Total 1682 / 1682 3104 / 3104 4558 / 4558 2382 / 2382 Output Total 302 / 302 Balance 1380 / 1380 3104 / 3104 4558 / 4558 2382 / 2382 Physical Exam Oriented: Normal Eyes: Normal Ear: Normal Nose: Normal Throat: Normal Respiratory: Normal Cardiovascular: Normal : Normal Auscultation: Bowel Sounds: Normal Tenderness: Normal Skin: Normal Musculoskeletal: Normal Psychiatric: Normal Mood Description: Calm and Appropriate Affect: Normal Speech Pattern: Clear and Appropriate Laboratory and Diagnostics 08/14/23 05:00 08/14/23 05:00 Labs: Laboratory WBC 5.9 X10^3/uL (3.6-10.0) 08/14/23 05:00 RBC 3.40 X10^6/uL (3.5-5.4) L 08/14/23 05:00 Hgb 12.1 g/dL (12.0-16.0) 08/14/23 05:00 Hct 36.6 % (36.0-47.0) 08/14/23 05:00 MCV 107.8 fL (80.0-100.0) H 08/14/23 05:00 MCH 35.7 pg (27.0-34.0) H 08/14/23 05:00 MCHC 33.1 g/dL (33.0-35.0) 08/14/23 05:00 RDW 14.4 % (11.6-16.5) 08/14/23 05:00 Plt Count 106 X10^3/uL (150.0-450.0) L 08/14/23 05:00 Plt Count Comment Decreased (ADEQUATE) A 08/14/23 05:00 MPV 9.9 fL (7.4-11.0) 08/14/23 05:00 Neut % (Auto) 67.7 % (42.0-75.0) 08/14/23 05:00 Lymph % (Auto) 23.7 % (21.0-51.0) 08/14/23 05:00 [place] % (Auto) 5.2 % (0.0-13.0) 08/14/23 05:00 Eos % (Auto) 2.2 % (0.9-2.9) 08/14/23 05:00 Baso % (Auto) 1.2 % (0.2-1.0) H 08/14/23 05:00 Neut # (Auto) 4.0 x10^3/uL (2.2-4.8) 08/14/23 05:00 Lymph # (Auto) 1.4 X10^3/uL (1.3-2.9) 08/14/23 05:00 [place] # (Auto) 0.3 x10^3/uL (0.3-0.8) 08/14/23 05:00 Eos # (Auto) 0.1 x10^3/uL (0.0-0.2) 08/14/23 05:00 Baso # (Auto) 0.1 X10^3/uL (0.0-0.1) 08/14/23 05:00 Absolute Nucleated RBC 0.1 /100WBC 08/14/23 05:00 Total Counted 100 08/11/23 09:03 Neutrophils % (Manual) 73 % (39-76) 08/11/23 09:03 Band Neutrophils % 6 % (0-10) 08/11/23 09:03 Lymphocytes % (Manual) 12 % (13-43) L 08/11/23 09:03 Monocytes % (Manual) 8 % (4-9) 08/11/23 09:03 Metamyelocytes % 1 08/11/23 09:03 Plt Morphology Comment Normal (NORMAL) 08/14/23 05:00 RBC Morphology Abnormal (NORMAL) A 08/14/23 05:00 Macrocytosis 1+ A 08/14/23 05:00 Target Cells 1+ A 08/14/23 05:00 Stomatocytes Slight A 08/14/23 05:00 Sodium 135 mmol/L (136-145) L 08/14/23 05:00 Corrected Sodium TNP 08/14/23 05:00 Potassium 5.3 mmol/L (3.5-5.1) H 08/14/23 05:00 Chloride 104 mmol/L (98-107) 08/14/23 05:00 Carbon Dioxide 28.8 mmol/L (21-32) 08/14/23 05:00 BUN 5 mg/dL (7-18) L 08/14/23 05:00 Creatinine 0.39 mg/dL (0.55-1.02) L 08/14/23 05:00 Est GFR (MDRD) Af Amer > 60 (>60) 08/14/23 05:00 Est GFR (MDRD) Non-Af > 60 (>60) 08/14/23 05:00 Glucose 78 mg/dL (65-99) 08/14/23 05:00 POC Glucose (mg/dL) 90 mg/dL (65-99) 08/12/23 17:26 Calcium 7.7 mg/dL (8.5-10.1) L 08/14/23 05:00 Corrected Calcium 9.3 mg/dL (8.5-10.1) 08/14/23 05:00 Magnesium 2.3 mg/dL (2.0-2.9) 08/12/23 05:40 Total Bilirubin 0.60 mg/dL (0.2-1.0) 08/14/23 05:00 AST 84 Units/L (15-37) H 08/14/23 05:00 ALT 22 Units/L (12-78) 08/14/23 05:00 Alkaline Phosphatase 166 Units/L (46-116) H 08/14/23 05:00 Total Protein 6.0 g/dL (6.4-8.2) L 08/14/23 05:00 Albumin 2.0 g/dL (3.4-5.0) L 08/14/23 05:00 Globulin 4.0 g/dL (2.5-4.5) 08/14/23 05:00 Albumin/Globulin Ratio 0.5 Ratio (1.1-2.1) L 08/14/23 05:00 Lipase 25 Units/L (16-77) 08/11/23 09:03 Vitamin B12 622 pg/mL (193-986) 08/11/23 09:03 Folate 5.6 ng/mL (>8.6) L 08/11/23 09:03 TSH 3rd Generation 0.995 uIU/mL (0.358-3.74) 08/11/23 09:03 Specimen Type Clean catch urine 08/11/23 12: Urine Color Yellow (YELLOW) 08/11/23 12: Urine Appearance Clear (CLEAR) 08/11/23 12: Urine pH 6.5 (5.0 - 8.0) 08/11/23 12: Ur Specific [place] 1.010 (1.000-1.030) 08/11/23 12: Urine Protein Negative (NEGATIVE) 08/11/23 12: Urine Glucose (UA) Negative (NEGATIVE) 08/11/23 12: Urine Ketones 1+ (NEGATIVE) 08/11/23 12: Urine Blood Negative (NEGATIVE) 08/11/23 12: Urine Nitrite Negative (NEGATIVE) 08/11/23 12: Urine Bilirubin Negative (NEGATIVE) 08/11/23 12: Urine Urobilinogen Normal (NORMAL) 08/11/23 12: Ur Leukocyte Esterase Negative (NEGATIVE) 08/11/23 12:29 Resp Viral Panel (PCR) see scanned report 08/11/23 17:30 Plan (1) Pneumonia: Status: Acute (2) COPD exacerbation: Status: Acute (3) Acute hyponatremia: Status: Acute (4) Acute hypokalemia: Status: Acute (5) Degeneration of intervertebral disc of lumbar region: Status: None (6) Gastroesophageal reflux disease: Status: None (7) Benign hypertension: Status: None (8) Lung nodule: Status: None
[2023-08-14] MEDS: LEVAQUIN PREMIX IV 750 MG 750 MG/150 ML BAG IV SCH (09:32)
[2023-08-14] MEDS: PriLOSEC PO SCH (09:33)
[2023-08-14] MEDS: COREG TAB 12.5 MG PO SCH (09:33)
[2023-08-14] MEDS: LYRICA CAP 150 mg PO PRN (09:33)
[2023-08-14] MEDS: FOLIC ACID TAB 1 MG PO SCH (09:33)
[2023-08-14] MEDS: NORVASC TAB 5 MG PO SCH (09:33)
--- NOTE | 2023-08-14 11:42 | W.DIS.FURT ---
Summary of Discharge Discharge Summary of Date Date of Exam: 08/14/23 Admission Date Date of Admission: 08/11/23 Admission Diagnosis Patient Problems (Updated 08/12/23 @ 07:25 by Josr Parham) Acute hypokalemia (Acute) E87.6 Acute hyponatremia (Acute) E87.1 Mass of right lung (Acute) R91.8 Pneumonia (Acute) J18.9 Hospital Course: Patient is a 57-year-old female with a past medical history of COPD, degenerative disc disease, hypertension, GERD, admitted for pneumonia, COPD exacerbation, and electrolyte abnormalities. Her hospital/treatment course included: IV Levaquin. Magnesium and potassium will be repleted per protocol. Scheduled bronchodilators. Smart vest. Labs/imaging: WBC 5.9, hemoglobin 12.1, platelets 106, sodium 135, potassium 5.3, creatinine 0.39, glucose 78. AIT swab positive for strep pneu. and Haemophilus inf. that is susceptible to Levaquin, rx sent. Pt requires home oxygen of 2L nasal cannula that was set up. Pt responded well to treatments. Symptoms significantly improved. She was discharged in stable condition, instructed to follow up with pcp in 1 week. Vital Signs: Vital Signs (72 hours) 08/11/23 11:45 08/11/23 12:00 08/11/23 12:00 Temperature Pulse Rate 78 78 Pulse Rate [Left Brachial] Respiratory Rate Blood Pressure 98/69 Blood Pressure [Left Arm] O2 Sat by Pulse Oximetry 94 L 95 Oxygen Delivery Method Oxygen Flow Rate FIO2% 08/11/23 12:15 08/11/23 12:30 08/11/23 12:30 Temperature Pulse Rate 76 84 Pulse Rate [Left Brachial] Respiratory Rate Blood Pressure 127/72 Blood Pressure [Left Arm] O2 Sat by Pulse Oximetry 95 93 L Oxygen Delivery Method Oxygen Flow Rate FIO2% 08/11/23 12:45 08/11/23 12:59 08/11/23 13:00 Temperature Pulse Rate 79 77 Pulse Rate [Left Brachial] Respiratory Rate Blood Pressure 103/68 Blood Pressure [Left Arm] O2 Sat by Pulse Oximetry 95 96 Oxygen Delivery Method Oxygen Flow Rate FIO2% 08/11/23 12:18 08/11/23 13:00 08/11/23 13:15 Temperature Pulse Rate 76 74 Pulse Rate [Left Brachial] Respiratory Rate 12 Blood Pressure Blood Pressure [Left Arm] O2 Sat by Pulse Oximetry 96 96 Oxygen Delivery Method Oxygen Flow Rate FIO2% 08/11/23 13:30 08/11/23 13:30 08/11/23 13:45 Temperature Pulse Rate 75 Pulse Rate [Left Brachial] Respiratory Rate Blood Pressure 99/65 Blood Pressure [Left Arm] O2 Sat by Pulse Oximetry 96 Oxygen Delivery Method Nasal Cannula Oxygen Flow Rate 2 FIO2% 28 08/11/23 14:10 08/11/23 13:23 08/11/23 16:00 Temperature 97.5 F L 97.0 F L Pulse Rate Pulse Rate [Left Brachial] 81 81 Respiratory Rate 20 18 Blood Pressure Blood Pressure [Left Arm] 111/70 131/76 O2 Sat by Pulse Oximetry 93 L 94 L Oxygen Delivery Method Nasal Cannula Room Air Nasal Cannula Oxygen Flow Rate 2 2 FIO2% 08/11/23 19:00 08/11/23 20:00 08/11/23 21:33 Temperature 98.5 F Pulse Rate Pulse Rate [Left Brachial] 90 Respiratory Rate 18 12 Blood Pressure Blood Pressure [Left Arm] 133/69 O2 Sat by Pulse Oximetry 94 L Oxygen Delivery Method Room Air Oxygen Flow Rate FIO2% 08/11/23 21:54 08/11/23 22:33 08/12/23 00:00 Temperature 98.6 F Pulse Rate Pulse Rate [Left Brachial] 77 Respiratory Rate 12 18 Blood Pressure Blood Pressure [Left Arm] 99/66 O2 Sat by Pulse Oximetry 95 Oxygen Delivery Method Nasal Cannula Nasal Cannula Oxygen Flow Rate 2 FIO2% 28 08/12/23 04:00 08/12/23 07:48 08/12/23 08:00 Temperature 98.1 F 97.8 F Pulse Rate Pulse Rate [Left Brachial] 86 85 Respiratory Rate 21 21 18 Blood Pressure Blood Pressure [Left Arm] 105/72 O2 Sat by Pulse Oximetry 93 L 96 Oxygen Delivery Method Nasal Cannula Nasal Cannula Oxygen Flow Rate 2 FIO2% 08/12/23 07:00 08/12/23 08:48 08/12/23 08:55 Temperature Pulse Rate Pulse Rate [Left Brachial] Respiratory Rate 21 Blood Pressure Blood Pressure [Left Arm] O2 Sat by Pulse Oximetry Oxygen Delivery Method Room Air Nasal Cannula Oxygen Flow Rate 2 FIO2% 28 08/12/23 14:06 08/12/23 12:00 08/12/23 15:06 Temperature 97.5 F L Pulse Rate Pulse Rate [Left Brachial] 80 Respiratory Rate 21 18 21 Blood Pressure Blood Pressure [Left Arm] 90/58 O2 Sat by Pulse Oximetry 96 Oxygen Delivery Method Nasal Cannula Oxygen Flow Rate 2 FIO2% 08/12/23 16:00 08/12/23 19:40 08/12/23 19:40 Temperature 98.1 F Pulse Rate 73 Pulse Rate [Left Brachial] 81 Respiratory Rate 18 Blood Pressure Blood Pressure [Left Arm] 97/62 O2 Sat by Pulse Oximetry 96 96 Oxygen Delivery Method Nasal Cannula Nasal Cannula Oxygen Flow Rate 2 2 FIO2% 28 08/12/23 20:49 08/12/23 21:49 08/12/23 19:00 Temperature Pulse Rate Pulse Rate [Left Brachial] Respiratory Rate 18 18 Blood Pressure Blood Pressure [Left Arm] O2 Sat by Pulse Oximetry Oxygen Delivery Method Room Air Oxygen Flow Rate FIO2% 08/12/23 20:00 08/13/23 00:00 08/13/23 04:44 Temperature 98.2 F 98.8 F Pulse Rate Pulse Rate [Left Brachial] 79 77 Respiratory Rate 20 20 20 Blood Pressure Blood Pressure [Left Arm] 117/65 110/66 O2 Sat by Pulse Oximetry 95 96 Oxygen Delivery Method Nasal Cannula Nasal Cannula Oxygen Flow Rate 2 2 FIO2% 08/13/23 05:44 08/13/23 04:00 08/13/23 08:25 Temperature 97.8 F Pulse Rate Pulse Rate [Left Brachial] 84 Respiratory Rate 20 20 Blood Pressure Blood Pressure [Left Arm] 131/80 O2 Sat by Pulse Oximetry 97 Oxygen Delivery Method Nasal Cannula Nasal Cannula Oxygen Flow Rate 2 2 FIO2% 28 08/13/23 11:20 08/13/23 07:00 08/13/23 08:00 Temperature 97.9 F Pulse Rate Pulse Rate [Left Brachial] 96 H Respiratory Rate 20 20 Blood Pressure Blood Pressure [Left Arm] 131/80 O2 Sat by Pulse Oximetry 94 L Oxygen Delivery Method Room Air Nasal Cannula Oxygen Flow Rate 2 FIO2% 08/13/23 12:00 08/13/23 12:20 08/13/23 16:00 Temperature 97.9 F 97.4 F L Pulse Rate Pulse Rate [Left Brachial] 78 70 Respiratory Rate 20 20 20 Blood Pressure Blood Pressure [Left Arm] 123/71 101/67 O2 Sat by Pulse Oximetry 93 L 96 Oxygen Delivery Method Nasal Cannula Nasal Cannula Oxygen Flow Rate 2 2 FIO2% 08/13/23 20:34 08/13/23 19:00 08/13/23 20:00 Temperature 98.3 F Pulse Rate Pulse Rate [Left Brachial] 86 Respiratory Rate 20 20 Blood Pressure Blood Pressure [Left Arm] 137/83 O2 Sat by Pulse Oximetry 96 Oxygen Delivery Method Room Air Room Air Oxygen Flow Rate FIO2% 08/13/23 20:20 08/13/23 20:20 08/13/23 21:34 Temperature Pulse Rate 90 Pulse Rate [Left Brachial] Respiratory Rate 20 Blood Pressure Blood Pressure [Left Arm] O2 Sat by Pulse Oximetry 97 Oxygen Delivery Method Nasal Cannula Oxygen Flow Rate 2 FIO2% 28 08/14/23 00:00 08/14/23 04:00 08/14/23 05:32 Temperature 98.1 F 98.7 F Pulse Rate Pulse Rate [Left Brachial] 79 91 H Respiratory Rate 20 20 20 Blood Pressure Blood Pressure [Left Arm] 123/69 160/80 O2 Sat by Pulse Oximetry 96 95 Oxygen Delivery Method Room Air Room Air Oxygen Flow Rate FIO2% 08/14/23 06:32 Temperature Pulse Rate Pulse Rate [Left Brachial] Respiratory Rate 22 Blood Pressure Blood Pressure [Left Arm] O2 Sat by Pulse Oximetry Oxygen Delivery Method Oxygen Flow Rate FIO2% Labs: Laboratory Last Values WBC 5.9 X10^3/uL (3.6-10.0) 08/14/23 05:00 RBC 3.40 X10^6/uL (3.5-5.4) L 08/14/23 05:00 Hgb 12.1 g/dL (12.0-16.0) 08/14/23 05:00 Hct 36.6 % (36.0-47.0) 08/14/23 05:00 MCV 107.8 fL (80.0-100.0) H 08/14/23 05:00 MCH 35.7 pg (27.0-34.0) H 08/14/23 05:00 MCHC 33.1 g/dL (33.0-35.0) 08/14/23 05:00 RDW 14.4 % (11.6-16.5) 08/14/23 05:00 Plt Count 106 X10^3/uL (150.0-450.0) L 08/14/23 05:00 Plt Count Comment Decreased (ADEQUATE) A 08/14/23 05:00 MPV 9.9 fL (7.4-11.0) 08/14/23 05:00 Neut % (Auto) 67.7 % (42.0-75.0) 08/14/23 05:00 Lymph % (Auto) 23.7 % (21.0-51.0) 08/14/23 05:00 [place] % (Auto) 5.2 % (0.0-13.0) 08/14/23 05:00 Eos % (Auto) 2.2 % (0.9-2.9) 08/14/23 05:00 Baso % (Auto) 1.2 % (0.2-1.0) H 08/14/23 05:00 Neut # (Auto) 4.0 x10^3/uL (2.2-4.8) 08/14/23 05:00 Lymph # (Auto) 1.4 X10^3/uL (1.3-2.9) 08/14/23 05:00 [place] # (Auto) 0.3 x10^3/uL (0.3-0.8) 08/14/23 05:00 Eos # (Auto) 0.1 x10^3/uL (0.0-0.2) 08/14/23 05:00 Baso # (Auto) 0.1 X10^3/uL (0.0-0.1) 08/14/23 05:00 Absolute Nucleated RBC 0.1 /100WBC 08/14/23 05:00 Total Counted 100 08/11/23 09:03 Neutrophils % (Manual) 73 % (39-76) 08/11/23 09:03 Band Neutrophils % 6 % (0-10) 08/11/23 09:03 Lymphocytes % (Manual) 12 % (13-43) L 08/11/23 09:03 Monocytes % (Manual) 8 % (4-9) 08/11/23 09:03 Metamyelocytes % 1 08/11/23 09:03 Plt Morphology Comment Normal (NORMAL) 08/14/23 05:00 RBC Morphology Abnormal (NORMAL) A 08/14/23 05:00 Macrocytosis 1+ A 08/14/23 05:00 Target Cells 1+ A 08/14/23 05:00 Stomatocytes Slight A 08/14/23 05:00 Sodium 135 mmol/L (136-145) L 08/14/23 05:00 Corrected Sodium TNP 08/14/23 05:00 Potassium 5.3 mmol/L (3.5-5.1) H 08/14/23 05:00 Chloride 104 mmol/L (98-107) 08/14/23 05:00 Carbon Dioxide 28.8 mmol/L (21-32) 08/14/23 05:00 BUN 5 mg/dL (7-18) L 08/14/23 05:00 Creatinine 0.39 mg/dL (0.55-1.02) L 08/14/23 05:00 Est GFR (MDRD) Af Amer > 60 (>60) 08/14/23 05:00 Est GFR (MDRD) Non-Af > 60 (>60) 08/14/23 05:00 Glucose 78 mg/dL (65-99) 08/14/23 05:00 POC Glucose (mg/dL) 90 mg/dL (65-99) 08/12/23 17:26 Calcium 7.7 mg/dL (8.5-10.1) L 08/14/23 05:00 Corrected Calcium 9.3 mg/dL (8.5-10.1) 08/14/23 05:00 Magnesium 2.3 mg/dL (2.0-2.9) 08/12/23 05:40 Total Bilirubin 0.60 mg/dL (0.2-1.0) 08/14/23 05:00 AST 84 Units/L (15-37) H 08/14/23 05:00 ALT 22 Units/L (12-78) 08/14/23 05:00 Alkaline Phosphatase 166 Units/L (46-116) H 08/14/23 05:00 Total Protein 6.0 g/dL (6.4-8.2) L 08/14/23 05:00 Albumin 2.0 g/dL (3.4-5.0) L 08/14/23 05:00 Globulin 4.0 g/dL (2.5-4.5) 08/14/23 05:00 Albumin/Globulin Ratio 0.5 Ratio (1.1-2.1) L 08/14/23 05:00 Lipase 25 Units/L (16-77) 08/11/23 09:03 Vitamin B12 622 pg/mL (193-986) 08/11/23 09:03 Folate 5.6 ng/mL (>8.6) L 08/11/23 09:03 TSH 3rd Generation 0.995 uIU/mL (0.358-3.74) 08/11/23 09:03 Specimen Type Clean catch urine 08/11/23 12:29 Urine Color Yellow (YELLOW) 08/11/23 12:29 Urine Appearance Clear (CLEAR) 08/11/23 12:29 Urine pH 6.5 (5.0 - 8.0) 08/11/23 12:29 Ur Specific [place] 1.010 (1.000-1.030) 08/11/23 12:29 Urine Protein Negative (NEGATIVE) 08/11/23 12: Urine Glucose (UA) Negative (NEGATIVE) 08/11/23 12: Urine Ketones 1+ (NEGATIVE) 08/11/23 12:29 Urine Blood Negative (NEGATIVE) 08/11/23 12:29 Urine Nitrite Negative (NEGATIVE) 08/11/23 12:29 Urine Bilirubin Negative (NEGATIVE) 08/11/23 12:29 Urine Urobilinogen Normal (NORMAL) 08/11/23 12:29 Ur Leukocyte Esterase Negative (NEGATIVE) 08/11/23 12:29 Resp Viral Panel (PCR) see scanned report 08/11/23 17:30 Reason For Visit: ACUTE HYPOKALEMIA/HYPONATREMIA, R LUNG MASS, LEG Discharge Date Discharge Date: 08/14/23 Discharge Diagnosis All Active Problems (Updated 08/12/23 @ 07:25 by Josr Parham) COPD exacerbation (Acute) Acute hypokalemia (Acute) Acute hyponatremia (Acute) Mass of right lung (Acute) Pneumonia (Acute) Colon cancer screening (Acute) Nausea (Acute) COPD (chronic obstructive pulmonary disease) (Acute) Abdominal pain (Acute) Diverticulitis (Acute) GI bleeding (Acute) Intractable nausea and vomiting (Acute) Intractable diarrhea (Acute) Hematochezia (Acute) Contusion of left hand, initial encounter (Acute) Contusion of left wrist, initial encounter (Acute) Fall (Acute) Back contusion (Acute) Acute lumbar myofascial strain (Acute) Dehydration (Acute) Hypokalemia (Acute) Hyponatremia (Acute) Numbness (Acute) Elevated bilirubin (Acute) Diverticulitis (Acute) Abdominal pain (Acute) GI bleed (Acute) Hypertension (Chronic) Plan of Treatment: Continue with present treatment and follow up plan. Pt is to keep follow up appointment as instructed and take medications as ordered. Discharge Medications Discharge Medications: lisinopril Allergy (Unknown, Verified 08/11/23 09:23) CONTINUE taking the following medications carvedilol 12.5 mg tablet 12.5 mg PO BID 08/11/23 [History] fentanyl 25 mcg/hr transdermal patch 1 patch transdermal Q3D 08/11/23 [History] omeprazole 40 mg capsule,delayed release 40 mg PO QDAY 08/11/23 [History] oxycodone-acetaminophen 10 mg-325 mg tablet 1 tab PO QID PRN pain 08/11/23 [History] pregabalin 150 mg capsule 150 mg PO BID PRN pain 08/11/23 [History] New Prescriptions levofloxacin 750 mg tablet 750 mg PO Q24H 5 days #5 tabs 08/14/23 [Rx] Discharge Plan Discharge Plan Hospital Course: Patient is a 57-year-old female with a past medical history of COPD, degenerative disc disease, hypertension, GERD, admitted for pneumonia, COPD exacerbation, and electrolyte abnormalities. Her hospital/treatment course included: IV Levaquin. Magnesium and potassium will be repleted per protocol. Scheduled bronchodilators. Smart vest. Labs/imaging: WBC 5.9, hemoglobin 12.1, platelets 106, sodium 135, potassium 5.3, creatinine 0.39, glucose 78. AIT swab positive for strep pneu. and Haemophilus inf. that is susceptible to Levaquin, rx sent. Pt requires home oxygen of 2L nasal cannula that was set up. Pt responded well to treatments. Symptoms significantly improved. She was discharged in stable condition, instructed to follow up with pcp in 1 week. Patient Disposition: HOME, SELF-CARE Condition: Stable Health Concerns: Post Hospitalization: new medications and changes needed to prevent readmission or further decline. Pt educated and given instructions on all concerns. Plan of Treatment: Continue with present treatment and follow up plan. Pt is to keep follow up appointment as instructed and take medications as ordered. Prescriptions: New levofloxacin 750 mg tablet 750 mg PO Q24H 5 Days Qty: 5 0RF Continued furosemide 20 mg tablet 20 mg PO QDAY PRN (Reason: for swelling) Qty: 30 2RF hydrochlorothiazide 12.5 mg capsule 12.5 mg PO QDAY Qty: 30 3RF amlodipine [Norvasc] 5 mg tablet 5 mg PO QDAY 30 Days Qty: 30 3RF carvedilol 12.5 mg tablet 12.5 mg PO BID omeprazole 40 mg capsule,delayed release(DR/EC) 40 mg PO QDAY oxycodone-acetaminophen 10-325 mg tablet 1 tab PO QID PRN (Reason: pain) fentanyl 25 mcg/hr patch 72 hour 1 patch transdermal Q3D pregabalin 150 mg capsule 150 mg PO BID PRN (Reason: pain) Follow ups/Referrals Follow ups/Referrals: Josr Parham [Primary Care Provider] - 3 days Instructions Stand Alone Forms: Excuse From Work or School, Post Hospital Follow Up Care
[2023-08-14 14:16] VITALS: BP 114/57; PULSE 80; RESP 18; TEMP 98; O2SAT 96
--- NOTE | 2023-08-14 18:24 | RAD ---
EXAM:CHEST, 1 VIEWHISTORY:PNEUMONIA;COMPARISON:August 13, 2023FINDINGS:Heart: The cardiomediastinal silhouette is normal in size.Lungs: No acute airspace disease.Pleural space: No conspicuous pneumothorax or effusion.Bones:The bony thorax appears age appropriate.IMPRESSION:1. Right upper lobe consolidative masslike opacities noted unchanged. The diagnosis of exclusion would be a neoplastic process or obstructive lesion causing postobstructive atelectasis in the right upper lobe. This is similar to the August 12 and 2022 x-rays and is new compared to the August 11, 2023 CT. Pulmonary consult may have merit.THIS IS AN ELECTRONICALLY VERIFIED FINAL [id number]/14/2023 6:17 PM - Electronically signed by Sanya Clinton DO
== END 2023-08-14 16:28 | disposition home or self-care (01) | DRG 194 ==
LOC: ER 08:27 → MED/SURG 12:41
PROVIDERS: ADMIT Family Medicine; ATTEND Family Medicine
DX: E26.89 Other hyperaldosteronism; I10 Essential (primary) hypertension; B95.3 Streptococcus pneumoniae as the cause of diseases classified elsewhere; R91.1 Solitary pulmonary nodule; E87.6 Hypokalemia; K21.9 Gastro-esophageal reflux disease without esophagitis; J44.1 Chronic obstructive pulmonary disease with (acute) exacerbation; E83.42 Hypomagnesemia; R06.02 Shortness of breath; B96.3 Hemophilus influenzae [H. influenzae] as the cause of diseases classified elsewhere; E87.1 Hypo-osmolality and hyponatremia; M51.36 Other intervertebral disc degeneration, lumbar region; J18.8 Other pneumonia, unspecified organism; R53.1 Weakness

== ENCOUNTER 2023-09-06 02:45 | Inpatient (IN) ==
[2023-09-06 03:02] VITALS: BMI 21.4
--- NOTE | 2023-09-06 03:14 | DR.DIZZY ---
HPI Time seen Time Seen by Provider: 09/06/23 03:13 PCP Primary Care Physician: DORY Complaint Chief Complaint:: PT COMPLAING OF LEG WEAKNES X24 HOURS THAT HAS PROGRESSIVLY GOTTEN WORSE, SHE WAS UNABLE TO GET OUT OF CHAIR AND CALLED EMS TO BE EVALUATED. PT NOTED TO HAVE 3+ PITTING EDEMA TO BOTH LOWER EXT. PT DOES FEEL SOB AND WAS BRUNG IN BY EMS ON 4L NC O2 SATS ON ARRIVAL WAS 89. Self Treatment fo Chief Complaint: PT TOOK PERCOET 10 PRIOR TO ARRIVAL FOR LEG PAIN. COVID-19 Coronavirus risk:travel/contact w/high risk person: No Has patient experienced Coronavirus symptoms: No Source History Provided: Patient Mode of Arrival Mode of Arrival: EMS Timing Onset of Chief Complaint: 09/05/23 PMH PMH Past Medical History: Yes Past Medical History: COPD, GERD and Hypertension Past Medical History Comment: NEUROPATHY, DEGENERATIVE DISC DISEASE Past Surgical History: Yes Surgical History: Cholecystectomy Family History History of Family Medical Conditions: No Family Medical History: Cancer, Coronary Artery Disease, Heart Failure and Hypertension Social History Do you use any recreational Drugs:: No Travel Risk Coronavirus risk:travel/contact w/high risk person: No Has patient experienced Coronavirus symptoms: No Infectious screening Have you traveled outside the country in the last 6 months?: No Isolation: Standard PE Vital Signs Vitals: Vital Signs Pulse Rate 95 Pulse Rate 102 Pulse Rate 102 Pulse Rate 102 Pulse Rate 95 Pulse Rate 98 Pulse Rate 101 Pulse Rate 103 Pulse Rate 104 Pulse Rate 105 Pulse Rate 93 Pulse Rate 95 Pulse Rate 98 Pulse Rate 101 Pulse Rate 101 Pulse Rate 102 Pulse Rate 110 Pulse Rate 102 Pulse Rate 110 Pulse Rate 111 Pulse Rate 111 Pulse Rate 115 Pulse Rate 112 Respiratory Rate 20 Blood Pressure 112/71 Blood Pressure 120/68 Blood Pressure 109/68 Blood Pressure 121/74 Blood Pressure 134/68 Blood Pressure 99/59 Blood Pressure 101/61 Blood Pressure 97/56 Blood Pressure 102/57 Blood Pressure 105/59 Blood Pressure 128/60 Blood Pressure 128/60 O2 Sat by Pulse Oximetry 94 O2 Sat by Pulse Oximetry 91 O2 Sat by Pulse Oximetry 92 O2 Sat by Pulse Oximetry 90 O2 Sat by Pulse Oximetry 92 O2 Sat by Pulse Oximetry 90 O2 Sat by Pulse Oximetry 91 O2 Sat by Pulse Oximetry 89 O2 Sat by Pulse Oximetry 89 O2 Sat by Pulse Oximetry 93 O2 Sat by Pulse Oximetry 93 O2 Sat by Pulse Oximetry 93 O2 Sat by Pulse Oximetry 93 O2 Sat by Pulse Oximetry 93 O2 Sat by Pulse Oximetry 95 O2 Sat by Pulse Oximetry 95 O2 Sat by Pulse Oximetry 93 O2 Sat by Pulse Oximetry 92 O2 Sat by Pulse Oximetry 94 O2 Sat by Pulse Oximetry 94 O2 Sat by Pulse Oximetry 95 O2 Sat by Pulse Oximetry 90 O2 Sat by Pulse Oximetry 92 ROR Labs Reviewed 09/06/23 03:26 09/06/23 03:26 Laboratory: WBC 5.2 X10^3/uL (3.6-10.0) 09/06/23 03:26 RBC 3.58 X10^6/uL (3.5-5.4) 09/06/23 03:26 Hgb 12.7 g/dL (12.0-16.0) 09/06/23 03:26 Hct 37.1 % (36.0-47.0) 09/06/23 03:26 MCV 103.7 fL (80.0-100.0) H 09/06/23 03:26 MCH 35.4 pg (27.0-34.0) H 09/06/23 03:26 MCHC 34.2 g/dL (33.0-35.0) 09/06/23 03:26 RDW 13.2 % (11.6-16.5) 09/06/23 03:26 Plt Count 83 X10^3/uL (150.0-450.0) L 09/06/23 03:26 MPV 10.3 fL (7.4-11.0) 09/06/23 03:26 Neut % (Auto) 72.5 % (42.0-75.0) 09/06/23 03:26 Lymph % (Auto) 17.3 % (21.0-51.0) L 09/06/23 03:26 [place] % (Auto) 8.7 % (0.0-13.0) 09/06/23 03:26 Eos % (Auto) 0.7 % (0.9-2.9) L 09/06/23 03:26 Baso % (Auto) 0.8 % (0.2-1.0) 09/06/23 03:26 Neut # (Auto) 3.8 x10^3/uL (2.2-4.8) 09/06/23 03:26 Lymph # (Auto) 0.9 X10^3/uL (1.3-2.9) L 09/06/23 03:26 [place] # (Auto) 0.5 x10^3/uL (0.3-0.8) 09/06/23 03:26 Eos # (Auto) 0.0 x10^3/uL (0.0-0.2) 09/06/23 03:26 Baso # (Auto) 0.0 X10^3/uL (0.0-0.1) 09/06/23 03:26 Absolute Nucleated RBC 0.0 /100WBC 09/06/23 03:26 Sodium 130 mmol/L (136-145) L 09/06/23 03:26 Corrected Sodium TNP 09/06/23 03:26 Potassium 2.2 mmol/L (3.5-5.1) L* 09/06/23 03:26 Chloride 87 mmol/L (98-107) L 09/06/23 03:26 Carbon Dioxide 37.4 mmol/L (21-32) H 09/06/23 03:26 BUN 8 mg/dL (7-18) 09/06/23 03:26 Creatinine 0.67 mg/dL (0.55-1.02) 09/06/23 03:26 Est GFR (MDRD) Af Amer > 60 (>60) 09/06/23 03:26 Est GFR (MDRD) Non-Af > 60 (>60) 09/06/23 03:26 Glucose 85 mg/dL (65-99) 09/06/23 03:26 Calcium 7.7 mg/dL (8.5-10.1) L 09/06/23 03:26 Corrected Calcium 9.1 mg/dL (8.5-10.1) 09/06/23 03:26 Magnesium 1.4 mg/dL (2.0-2.9) L 09/06/23 03:26 Total Bilirubin 1.30 mg/dL (0.2-1.0) H 09/06/23 03:26 AST 37 Units/L (15-37) 09/06/23 03:26 ALT 7 Units/L (12-78) L 09/06/23 03:26 Alkaline Phosphatase 117 Units/L (46-116) H 09/06/23 03:26 Creatine Kinase 15 Units/L (26-192) L 09/06/23 05:36 Troponin I High Sens 64.9 ng/L (4.0-60.0) H* 09/06/23 05:36 B-Natriuretic Peptide 165 pg/mL (0-79) H 09/06/23 03:26 Total Protein 6.3 g/dL (6.4-8.2) L 09/06/23 03:26 Albumin 2.3 g/dL (3.4-5.0) L 09/06/23 03:26 Globulin 4.0 g/dL (2.5-4.5) 09/06/23 03:26 Albumin/Globulin Ratio 0.6 Ratio (1.1-2.1) L 09/06/23 03:26 Specimen Type Clean catch urine 09/06/23 05:34 Urine Color Yellow (YELLOW) 09/06/23 05:34 Urine Appearance Clear (CLEAR) 09/06/23 05:34 Urine pH 6.5 (5.0 - 8.0) 09/06/23 05:34 Ur Specific [place] 1.005 (1.000-1.030) 09/06/23 05:34 Urine Protein Negative (NEGATIVE) 09/06/23 05:34 Urine Glucose (UA) Negative (NEGATIVE) 09/06/23 05:34 Urine Ketones 2+ (NEGATIVE) 09/06/23 05:34 Urine Blood 4+ (NEGATIVE) 09/06/23 05:34 Urine Nitrite Negative (NEGATIVE) 09/06/23 05:34 Urine Bilirubin Negative (NEGATIVE) 09/06/23 05:34 Urine Urobilinogen Normal (NORMAL) 09/06/23 05:34 Ur Leukocyte Esterase Negative (NEGATIVE) 09/06/23 05:34 Urine RBC None seen /HPF (0-3) 09/06/23 05:34 Urine WBC None seen /HPF (0-5) 09/06/23 05:34 Ur Squamous Epith Cells Rare /HPF (NEGATIVE) 09/06/23 05:34 Urine Bacteria Negative /HPF (NEGATIVE) 09/06/23 05:34 Ur Culture Indicated? No/not indicated 09/06/23 05:34 Opioid Opioid Risk Tool Age (Sudarshan box if 16-45): No History of Preadolescent Sexual Abuse: No Total: 0 Total Score Risk Category: Low Risk Copyright: [facility] predicting aberrant behaviors Discharge Plan Diagnosis Discharge Problem: Hypokalemia, Hypomagnesemia, Generalized weakness, Elevated troponin CHF (congestive heart failure) Qualifiers: Heart failure type: unspecified Heart failure chronicity: acute on chronic Qualified Code(s): I50.9 - Heart failure, unspecified Discharge Plan Patient Disposition: HOME, SELF-CARE Condition: Stable Prescriptions: No Action furosemide 20 mg tablet 20 mg PO QDAY PRN (Reason: for swelling) Qty: 30 2RF amlodipine [Norvasc] 5 mg tablet 5 mg PO QDAY 30 Days Qty: 30 3RF fentanyl 25 mcg/hr patch 72 hour 1 patch transdermal Q3D MDD 1 30 Days Qty: 5 0RF hydrochlorothiazide 12.5 mg capsule 12.5 mg PO QDAY Qty: 30 3RF oxycodone-acetaminophen 10-325 mg tablet 1 tab PO QID MDD 4 PRN (Reason: pain) 30 Days Qty: 120 0RF pregabalin 150 mg capsule 150 mg PO BID PRN (Reason: pain) 30 Days Qty: 60 0RF ondansetron HCl 8 mg tablet 8 mg PO BID PRN (Reason: nausea and vomiting) 15 Days Qty: 30 3RF carvedilol 12.5 mg tablet 12.5 mg PO BID omeprazole 40 mg capsule,delayed release(DR/EC) 40 mg PO QDAY Health Concerns: Post Hospitalization: new medications and changes needed to prevent readmission or further decline. Pt educated and given instructions on all concerns. Plan of Treatment: Continue with present treatment and follow up plan. Pt is to keep follow up appointment as instructed and take medications as ordered. Orders to Discharge Patient Discharge Orders: Transfer (Routine); Ordered 09/06/23 Ordered By: RONIT IRWIN Follow ups/Referrals Follow ups/Referrals: Josr Parham [Primary Care Provider] - 3 days Instructions Stand Alone Forms: Post Hospital Follow Up Care
[2023-09-06] MEDS ORDERED: XOPENEX 1.25 MG/3 ML NEBULE NEB ONE ×2 (03:20→03:26)
[2023-09-06] MEDS ORDERED: SOLU-Medrol 125 MG VIAL ONE (03:24)
[2023-09-06] MEDS ORDERED: NS 1,000 ML IV 1,000 ML ONE (03:24)
[2023-09-06] MEDS ORDERED: SOLU-Medrol 125 MG VIAL IVP ONE (03:31)
[2023-09-06 03:41] LABS: BASOPHILS % (AUTO) 0.8 % (0.2-1.0); EOSINOPHILS % (AUTO) 0.7 % (0.9-2.9); HEMATOCRIT 37.1 % (36.0-47.0); HEMOGLOBIN 12.7 g/dL (12.0-16.0); LYMPHOCYTES # (AUTO) 0.9 X10^3/uL (1.3-2.9); LYMPHOCYTES % (AUTO) 17.3 % (21.0-51.0); MEAN CORPUSCULAR HEMOGLOBIN 35.4 pg (27.0-34.0); MEAN CORPUSCULAR HGB CONC 34.2 g/dL (33.0-35.0); MEAN CORPUSCULAR VOLUME 103.7 fL (80.0-100.0); MEAN PLATELET VOLUME 10.3 fL (7.4-11.0); MONOCYTES # (AUTO) 0.5 x10^3/uL (0.3-0.8); MONOCYTES % (AUTO) 8.7 % (0.0-13.0); NEUTROPHILS # (AUTO) 3.8 x10^3/uL (2.2-4.8); NEUTROPHILS % (AUTO) 72.5 % (42.0-75.0); PLATELET COUNT 83 X10^3/uL (150.0-450.0); RED BLOOD COUNT 3.58 X10^6/uL (3.5-5.4); RED CELL DISTRIBUTION WIDTH 13.2 % (11.6-16.5); WHITE BLOOD COUNT 5.2 X10^3/uL (3.6-10.0)
[2023-09-06] MEDS ORDERED: NS 1,000 ML IV 1,000 ML IV SCH (04:00)
[2023-09-06 04:04] LABS: ALANINE AMINOTRANSFERASE 7 Units/L (12-78); ALBUMIN 2.3 g/dL (3.4-5.0); ALKALINE PHOSPHATASE 117 Units/L (46-116); ASPARTATE AMINO TRANSFERASE 37 Units/L (15-37); BLOOD UREA NITROGEN 8 mg/dL (7-18); CALCIUM 7.7 mg/dL (8.5-10.1); CARBON DIOXIDE 37.4 mmol/L (21-32); CHLORIDE 87 mmol/L (98-107); COR CA(FOR HYPOALB) 9.1 mg/dL (8.5-10.1); CREATINE KINASE 14 Units/L (26-192); CREATININE 0.67 mg/dL (0.55-1.02); GLUCOSE 85 mg/dL (65-99); SODIUM 130 mmol/L (136-145); TOTAL PROTEIN 6.3 g/dL (6.4-8.2); eGFR NON BLACK RACES > 60 (>60)
[2023-09-06 04:07] LABS: POTASSIUM 2.2 mmol/L (3.5-5.1)
[2023-09-06 05:54] LABS: BILIRUBIN,URINE NEGATIVE (NEGATIVE); BLOOD/HEMOGLOBIN,URINE 4+ (NEGATIVE); GLUCOSE, URINE NEGATIVE (NEGATIVE); KETONES,URINE 2+ (NEGATIVE); LEUKOCYTE ESTERASE ,URINE NEGATIVE (NEGATIVE); NITRITES,URINE NEGATIVE (NEGATIVE); PH,URINE 6.5 (5.0 - 8.0); PROTEIN,URINE NEGATIVE (NEGATIVE); UROBILINOGEN,URINE NORMAL (NORMAL)
[2023-09-06 06:05] LABS: APPEARANCE,URINE CLEAR (CLEAR); COLOR,URINE YELLOW (YELLOW)
[2023-09-06 06:06] LABS: BACTERIA,URINE NEGATIVE /HPF (NEGATIVE); RBC,URINE NONE SEEN /HPF (0-3); SQUAMOUS EPITHELIAL CELL,UR RARE /HPF (NEGATIVE)
[2023-09-06] MEDS ORDERED: NS 100 ML IV 100 ML ONE ×2 (08:48→10:23)
[2023-09-06] MEDS ORDERED: OMNIPAQUE 350 mg/mL 100 mL BTL 100 ML ONE (08:48)
[2023-09-06] MEDS ORDERED: SOLU-Medrol 125 MG VIAL IVP SCH (09:00)
[2023-09-06] MEDS ORDERED: CONSULT PHARMACY - POTASSIUM & MAGNESIUM XX SCH (09:00)
--- NOTE | 2023-09-06 09:53 | CT ---
EXAM:CT PULMONARY ANGIOGRAM CHEST WITH CONTRAST (PE PROTOCOL)HISTORY:SOB, ELEV D DIMER; HTN, COPDCOMPARISON:August 11, 2023.TECHNIQUE:Axial CT images were obtained through the chest after the intravenous administration of contrast. Coronal reformatted images were included. Maximum intensity projection (MIP) images were performed per pulmonary angiogram protocol.Informed written consent was obtained prior to contrast administration.All CT scans at this facility use dose modulation, iterative reconstruction, and/or weight based dosing when appropriate to reduce radiation dose to as low as reasonably achievable.FINDINGS:HEART AND PULMONARY ARTERIES: No evidence of right ventricular strain. No filling defects in the pulmonary arteries to suggest emboli.SUPPORT DEVICES: NoneLYMPH NODES: Enlarged subcarinal node measures up to 2.4 cm.LUNGS AND PLEURA: There is lobar collapse of the right lower lobe. Obstruction of the right lower lobe airway and right middle lobe airway is noted with filling defect which appears endobronchial. Patchy areas of airspace disease which appear infectious or also seen in the left lung base.AIRWAYS: NormalUPPER ABDOMEN: NormalBONES: NormalIMPRESSION:No evidence of pulmonary embolism. There is collapse of the right lower lobe and right middle lobe with material filling the bronchus intermedius. This could be related to mucous plugging, however follow-up is suggested post bronchi alveolar lavage and antibiotic therapy to ensure resolution of this abnormality. Centrally obstructive mass is not suspected, however there is a mildly enlarged subcarinal lymph node at present.THIS IS AN ELECTRONICALLY VERIFIED FINAL [id number]/06/2023 9:50 AM - Electronically signed by Nasim Colón MD
[2023-09-06] MEDS ORDERED: PERCOCET TAB 5/325 MG PO ONE (10:18)
[2023-09-06] MEDS ORDERED: PERCOCET TAB 5/325 MG ONE (10:22)
[2023-09-06] MEDS ORDERED: ZOSYN VIAL 3.375 GRAMS IV ONE (10:23)
[2023-09-06] MEDS: ZOSYN VIAL 3.375 GRAMS 3.375 G in NS 100 ML IV 100 ML IV SCH ×2 (10:38→14:04)
[2023-09-06] MEDS ORDERED: [UNRECOGNIZED DRUG - OTHER] IV ONE ×3 (11:00)
[2023-09-06] MEDS ORDERED: POTASSIUM CHLORIDE IV ONE ×3 (11:00)
[2023-09-06] MEDS ORDERED: NS IV ONE ×3 (11:00)
[2023-09-06 11:16] VITALS: TEMP 98.4
--- NOTE | 2023-09-06 11:19 | EKG ---
Test Reason : elevated troponin Blood Pressure : */* mmHG Vent. Rate : 98 BPM Atrial Rate : 98 BPM P-R Int : 144 ms QRS Dur : 92 ms QT Int : 372 ms P-R-T Axes : 66 -49 66 degrees QTc Int : 474 ms Sinus rhythm with premature atrial complexes Biatrial enlargement Pulmonary disease pattern Incomplete right bundle branch block Left anterior fascicular block Abnormal ECG No previous ECGs available Confirmed by Kevin Whitten MD ([id number]) on 09/06/2023 11:34:45 AM Referred By: Confirmed By: Kevin Whitten MD
[2023-09-06] MEDS ORDERED: DUONEB 0.5 MG/3 MG (3 mL) NEB SCH (13:00)
[2023-09-06 14:55] VITALS: RESP 20
[2023-09-06] MEDS ORDERED: SOLU-Medrol 40 MG VIAL ONE (14:58)
[2023-09-06] MEDS ORDERED: SOLU-Medrol 40 MG VIAL IVP SCH (15:00)
[2023-09-06 16:04] VITALS: BP 92/57; PULSE 80; O2SAT 93
[2023-09-06] MEDS ORDERED: NS + KCL 40 MEQ/L 1,000 ML with MAGNESIUM SULFATE 50% INJ VIAL 1 G IV SCH ×2 (18:00)
--- NOTE | 2023-09-07 06:21 | RAD ---
EXAM:AP chestHISTORY:Elevated troponinCOMPARISON:August 14, 2023FINDINGS:Since prior exam there is interval clearing of the right upper lobe consolidation. However there is now identified atelectasis at the right base involving the lower lobe. The heart and left lung are normal.IMPRESSION:Interval clearing of right upper lobe since prior exam with interval development of right lower lobe atelectasis.THIS IS AN ELECTRONICALLY VERIFIED FINAL [id number]/07/2023 6:17 AM - Electronically signed by Christopher Arshad MD
--- NOTE | 2023-09-07 07:27 | DR.SSS ---
SHORT STAY SUMMARY Admission Date Date of Admission: 09/06/23 Discharge Date Discharge Date: 09/06/23 Admission Diagnoses Admission Diagnoses: COPD exacerbation Mucous plugging Collapsed lung Chief Complaint Chief Complaint: Shortness of breath Cough, weakness History of Present Illness History of Present Illness: Patient is a 57-year-old female with a past medical history of COPD, degenerative disc disease, hypertension, GERD, presenting with shortness of breath, cough, and generalized weakness that progressively got worse for the past 2 to 3 days. She is requiring 4L nasal cannula supplemental oxygen, up from her baseline of 2L. She had elevated d-dimer, CTA chest was ordered that revealed: No evidence of pulmonary embolism. There is collapse of the right lower lobe and right middle lobe with material filling the bronchus intermedius. This could be related to mucous plugging, however follow-up is suggested post bronchi alveolar lavage and antibiotic therapy to ensure resolution of this abnormality. Labs: Wbc 5.2, Hgb 12.7, Plt 83, Na 130, K 2.2, Creatinine 0.67, Glucose 85, BNP 165, Troponin 63>64, Sputum/Respiratory panel pending. Pt was started on bronchodilators, IV Solumedrol, and antibiotics IV Zosyn. Due to findings on CTA chest, pt will likely require bronchoscopy. Discussed with hospitalist at [facility]. Pt accepted and transferred to tertiary care center for further treatment. Past Medical History Past Medical History: COPD, GERD and Hypertension Past Surgical History Surgical History: Cholecystectomy Allergies Allergies Allergy/AdvReac Type Severity Reaction Status Date / Time lisinopril Allergy Unknown Verified 08/11/23 09:23 Medications Home Medications: lisinopril Allergy (Unknown, Verified 08/11/23 09:23) CONTINUE taking the following medications carvedilol 12.5 mg tablet 12.5 mg PO BID 09/06/23 [History] furosemide 20 mg tablet 20 mg PO QDAY 09/06/23 [History] hydrochlorothiazide 12.5 mg capsule 12.5 mg PO QDAY 09/06/23 [History] omeprazole 40 mg capsule,delayed release 40 mg PO QDAY 09/06/23 [History] oxycodone-acetaminophen 10 mg-325 mg tablet 1 tab PO QID PRN pain 09/06/23 [History] Family History Family Medical History: Hypertension Social History Does patient currently use any type of tobacco product: Yes Have you used tobacco products in the last 12 months: Yes Type of Tobacco Use: Cigarettes Alcohol Use: Occasionally Drug Use: None Review of Systems Constitutional: Weakness Eyes: No Symptoms Reported ENT: No Symptoms Reported Respiratory: Cough and Shortness of Breath Cardiovascular: No Symptoms Reported Gastrointestinal: No Symptoms Reported Genitourinary: No Symptoms Reported Musculoskeletal: No Symptoms Reported Skin: No Symptoms Reported Neurological: No Symptoms Reported Physical Exam Vital Signs: Last Vital Signs Temp 98.4 F 09/06/23 11:16 Pulse 105 H 09/06/23 08:30 Resp 24 09/06/23 10:36 BP 125/78 09/06/23 08:30 Pulse Ox 91 L 09/06/23 08:30 O2 Del Method Nasal Cannula 09/06/23 08:39 O2 Flow Rate 4 09/06/23 07:45 FiO2 28 08/13/23 20:20 Oriented: Normal Eyes: Normal Ear: Normal Nose: Normal Throat: Normal Respiratory: Diminished Throughout Cardiovascular: Normal : Normal Auscultation: Bowel Sounds: Normal Palpation: Normal Tenderness: Normal Skin: Normal Musculoskeletal: Normal Speech Pattern: Clear Labs Labs: Laboratory Last Values WBC 5.2 X10^3/uL (3.6-10.0) 09/06/23 03:26 RBC 3.58 X10^6/uL (3.5-5.4) 09/06/23 03:26 Hgb 12.7 g/dL (12.0-16.0) 09/06/23 03:26 Hct 37.1 % (36.0-47.0) 09/06/23 03:26 MCV 103.7 fL (80.0-100.0) H 09/06/23 03:26 MCH 35.4 pg (27.0-34.0) H 09/06/23 03:26 MCHC 34.2 g/dL (33.0-35.0) 09/06/23 03:26 RDW 13.2 % (11.6-16.5) 09/06/23 03:26 Plt Count 83 X10^3/uL (150.0-450.0) L 09/06/23 03:26 MPV 10.3 fL (7.4-11.0) 09/06/23 03:26 Neut % (Auto) 72.5 % (42.0-75.0) 09/06/23 03:26 Lymph % (Auto) 17.3 % (21.0-51.0) L 09/06/23 03:26 [place] % (Auto) 8.7 % (0.0-13.0) 09/06/23 03:26 Eos % (Auto) 0.7 % (0.9-2.9) L 09/06/23 03:26 Baso % (Auto) 0.8 % (0.2-1.0) 09/06/23 03:26 Neut # (Auto) 3.8 x10^3/uL (2.2-4.8) 09/06/23 03:26 Lymph # (Auto) 0.9 X10^3/uL (1.3-2.9) L 09/06/23 03:26 [place] # (Auto) 0.5 x10^3/uL (0.3-0.8) 09/06/23 03:26 Eos # (Auto) 0.0 x10^3/uL (0.0-0.2) 09/06/23 03:26 Baso # (Auto) 0.0 X10^3/uL (0.0-0.1) 09/06/23 03:26 Absolute Nucleated RBC 0.0 /100WBC 09/06/23 03:26 D-Dimer 1.02 ug/ml (0.0-0.57) H 09/06/23 03:26 Sodium 130 mmol/L (136-145) L 09/06/23 03:26 Corrected Sodium TNP 09/06/23 03:26 Potassium 2.2 mmol/L (3.5-5.1) L* 09/06/23 03:26 Chloride 87 mmol/L (98-107) L 09/06/23 03:26 Carbon Dioxide 37.4 mmol/L (21-32) H 09/06/23 03:26 BUN 8 mg/dL (7-18) 09/06/23 03:26 Creatinine 0.67 mg/dL (0.55-1.02) 09/06/23 03:26 Est GFR (MDRD) Af Amer > 60 (>60) 09/06/23 03:26 Est GFR (MDRD) Non-Af > 60 (>60) 09/06/23 03:26 Glucose 85 mg/dL (65-99) 09/06/23 03:26 Calcium 7.7 mg/dL (8.5-10.1) L 09/06/23 03:26 Corrected Calcium 9.1 mg/dL (8.5-10.1) 09/06/23 03:26 Magnesium 1.4 mg/dL (2.0-2.9) L 09/06/23 03:26 Total Bilirubin 1.30 mg/dL (0.2-1.0) H 09/06/23 03:26 AST 37 Units/L (15-37) 09/06/23 03:26 ALT 7 Units/L (12-78) L 09/06/23 03:26 Alkaline Phosphatase 117 Units/L (46-116) H 09/06/23 03:26 Creatine Kinase 15 Units/L (26-192) L 09/06/23 05:36 Troponin I High Sens 64.9 ng/L (4.0-60.0) H* 09/06/23 05:36 B-Natriuretic Peptide 165 pg/mL (0-79) H 09/06/23 03:26 Total Protein 6.3 g/dL (6.4-8.2) L 09/06/23 03:26 Albumin 2.3 g/dL (3.4-5.0) L 09/06/23 03:26 Globulin 4.0 g/dL (2.5-4.5) 09/06/23 03:26 Albumin/Globulin Ratio 0.6 Ratio (1.1-2.1) L 09/06/23 03:26 Specimen Type Clean catch urine 09/06/23 05:34 Urine Color Yellow (YELLOW) 09/06/23 05:34 Urine Appearance Clear (CLEAR) 09/06/23 05:34 Urine pH 6.5 (5.0 - 8.0) 09/06/23 05:34 Ur Specific [place] 1.005 (1.000-1.030) 09/06/23 05:34 Urine Protein Negative (NEGATIVE) 09/06/23 05:34 Urine Glucose (UA) Negative (NEGATIVE) 09/06/23 05:34 Urine Ketones 2+ (NEGATIVE) 09/06/23 05:34 Urine Blood 4+ (NEGATIVE) 09/06/23 05:34 Urine Nitrite Negative (NEGATIVE) 09/06/23 05:34 Urine Bilirubin Negative (NEGATIVE) 09/06/23 05:34 Urine Urobilinogen Normal (NORMAL) 09/06/23 05:34 Ur Leukocyte Esterase Negative (NEGATIVE) 09/06/23 05:34 Urine RBC None seen /HPF (0-3) 09/06/23 05:34 Urine WBC None seen /HPF (0-5) 09/06/23 05:34 Ur Squamous Epith Cells Rare /HPF (NEGATIVE) 09/06/23 05:34 Urine Bacteria Negative /HPF (NEGATIVE) 09/06/23 05:34 Ur Culture Indicated? No/not indicated 09/06/23 05:34 SARS-CoV-2 (PCR) Negative (NEGATIVE) 09/06/23 08:26 Influenza Type A (PCR) Negative (NEGATIVE) 09/06/23 08:26 Influenza Type B (PCR) Negative (NEGATIVE) 09/06/23 08:26 RSV (PCR) Negative (NEGATIVE) 09/06/23 08:26 Assessment/Plan (1) COPD exacerbation: (2) Hypokalemia: (3) Elevated troponin level not due myocardial infarction: (4) Hypomagnesemia: Hospital Course Hospital Course: Patient is a 57-year-old female with a past medical history of COPD, degenerative disc disease, hypertension, GERD, presenting with shortness of breath, cough, and generalized weakness that progressively got worse for the past 2 to 3 days. She is requiring 4L nasal cannula supplemental oxygen, up from her baseline of 2L. She had elevated d-dimer, CTA chest was ordered that revealed: No evidence of pulmonary embolism. There is collapse of the right l ower lobe and right middle lobe with material filling the bronchus intermedius. This could be related to mucous plugging, however follow-up is suggested post bronchi alveolar lavage and antibiotic therapy to ensure resolution of this abnormality. Labs: Wbc 5.2, Hgb 12.7, Plt 83, Na 130, K 2.2, Creatinine 0.67, Glucose 85, BNP 165, Troponin 63>64, Sputum/Respiratory panel pending. Pt was started on bronchodilators, IV Solumedrol, and antibiotics IV Zosyn. Cardiology consulted for mildly elevated and stable tropnin, and does not believe to be due to cardiac. Due to findings on CTA chest, pt will likely require bronchoscopy. Discussed with hospitalist at [facility]. Pt accepted and transferred to tertiary care center for further treatment. Time spent on clinical assessment, reviewing labs and imaging, decision making, and documentation greater than 45 minutes. Discharge Medications Discharge Medications: Home Medication List carvedilol 12.5 mg tablet 12.5 mg PO BID 09/06/23 [History] furosemide 20 mg tablet 20 mg PO QDAY 09/06/23 [History] hydrochlorothiazide 12.5 mg capsule 12.5 mg PO QDAY 09/06/23 [History] omeprazole 40 mg capsule,delayed release 40 mg PO QDAY 09/06/23 [History] oxycodone-acetaminophen 10 mg-325 mg tablet 1 tab PO QID PRN pain 09/06/23 [History] Prescriptions: Discharge Plan Discharge Plan Patient Disposition: XFER [id number] HOSP Condition: Stable Health Concerns: Post Hospitalization: new medications and changes needed to prevent readmission or further decline. Pt educated and given instructions on all concerns. Plan of Treatment: Continue with present treatment and follow up plan. Pt is to keep follow up appointment as instructed and take medications as ordered. Prescriptions: No Action carvedilol 12.5 mg tablet 12.5 mg PO BID oxycodone-acetaminophen 10-325 mg tablet 1 tab PO QID PRN (Reason: pain) hydrochlorothiazide 12.5 mg capsule 12.5 mg PO QDAY furosemide 20 mg tablet 20 mg PO QDAY omeprazole 40 mg capsule,delayed release(DR/EC) 40 mg PO QDAY Orders to Discharge Patient Discharge Orders: Discharge by Transfer to Outside Facility (Routine); Ordered 09/06/23 Ordered By: Josr Parham Follow ups/Referrals Follow ups/Referrals: Josr Parham [Primary Care Provider] - 3 days
== END 2023-09-06 16:58 | disposition short-term general hospital (02) | DRG 191 ==
LOC: ER 02:45 → U 08:31 → MED/SURG 08:47
PROVIDERS: ADMIT Family Medicine; ATTEND Family Medicine

== ENCOUNTER 2023-10-16 06:54 | Inpatient (IN) ==
--- NOTE | 2023-10-16 07:01 | DR.DIZZY ---
HPI <Tawana Kim - Last Filed: 10/19/23 20:11> Time seen Time Seen by Provider: 10/16/23 07:01 Complaint Chief Complaint Doctor Comments: Patient presents from home by ambulance with complaint of weakness, she was unable to stand up this morning, unable to walk. Patient has neuropathy in her arms and legs and states that it appears to be worse this morning. Patient states that 3 months ago she had similar symptoms and had a right pneumothorax. Per medical history review patient has a history of hypomagnesemia, CHF, elevated troponin, hyponatremia, COPD, right lung mass. <Ari Estrada - Last Filed: 10/16/23 11:41> Context Stroke Symptoms: None PMH <Tawana Watersix - Last Filed: 10/19/23 20:11> PMH Past Medical History: COPD, GERD and Hypertension Past Surgical History: Yes Surgical History: Cholecystectomy Family History Family Medical History: Hypertension Social History Do you use any recreational Drugs:: No ROS <Tawana Kim - Last Filed: 10/19/23 20:11> Review of Systems Constitutional: Weakness Eyes: No Symptoms Reported ENTM: No Symptoms Reported Respiratoy: Short of Breath Cardiovascular: No Symptoms Reported Gastrointestinal/Abdominal: No Symptoms Reported Genitourinary: No Symptoms Reported Neurological: Weakness (BLE) and Problems Walking (BLE) Musculoskeletal: No Symptoms Reported Integumentary: No Symptoms Reported Hematologic/Lymphatic: No Symptoms Reported Endocrine: No Symptoms Reported Psychiatric: No Symptoms Reported All Other Systems: Reviewed and Negative PE <Tawana Kim - Last Filed: 10/19/23 20:11> Vital Signs Vitals: Vital Signs Temperature 98.5 F Pulse Rate 78 Pulse Rate 80 Pulse Rate 80 Pulse Rate 82 Pulse Rate 75 Pulse Rate 74 Pulse Rate 75 Pulse Rate 77 Pulse Rate 80 Pulse Rate 85 Pulse Rate 85 Pulse Rate 81 Pulse Rate 82 Pulse Rate 82 Pulse Rate 83 Pulse Rate 90 Pulse Rate 94 Pulse Rate 102 Pulse Rate 104 Pulse Rate 104 Respiratory Rate 20 Blood Pressure 79/53 Blood Pressure 89/61 Blood Pressure 93/64 Blood Pressure 88/61 Blood Pressure 87/55 Blood Pressure 80/52 Blood Pressure 78/51 Blood Pressure 80/53 Blood Pressure 82/55 Blood Pressure 83/54 Blood Pressure 82/56 Blood Pressure 84/56 Blood Pressure 75/52 Blood Pressure 74/51 Blood Pressure 74/52 Blood Pressure 84/56 O2 Sat by Pulse Oximetry 98 O2 Sat by Pulse Oximetry 97 O2 Sat by Pulse Oximetry 97 O2 Sat by Pulse Oximetry 97 O2 Sat by Pulse Oximetry 97 O2 Sat by Pulse Oximetry 95 O2 Sat by Pulse Oximetry 95 O2 Sat by Pulse Oximetry 96 O2 Sat by Pulse Oximetry 96 O2 Sat by Pulse Oximetry 95 O2 Sat by Pulse Oximetry 94 O2 Sat by Pulse Oximetry 99 O2 Sat by Pulse Oximetry 99 O2 Sat by Pulse Oximetry 99 O2 Sat by Pulse Oximetry 98 O2 Sat by Pulse Oximetry 95 O2 Sat by Pulse Oximetry 94 O2 Sat by Pulse Oximetry 90 O2 Sat by Pulse Oximetry 91 O2 Sat by Pulse Oximetry 90 General Limitations: No Limitations General Appearance: Alert and In No Apparent Distress Head Head Exam: Normal Inspection Eyes Eye exam: Normal Appearance ENT ENT Exam: Normal Exam, Normal Oropharynx and Normal External Ear Exam Neck Neck Exam: Normal Inspection and Full ROM Chest Chest Inspection: Normal Inspection Respiratory Respiratory Exam: Normal Lung Sounds Bilat Respiratory Exam: Bilateral: Clear to Auscultation Cardiovascular Cardiovascular Exam: Regular Rate and Normal Rhythm Abdominal Exam Abdominal Exam: Normal Inspection, Normal Bowel Sounds and Soft Rectal Rectal Exam: Deferred Extremeties Extremities Exam: Normal Inspection, Full ROM and Edema (non-pitting BLE) Back Back Exam: Normal Inspection and Full ROM Neurologic Neurological Exam: Alert and Oriented X3 Psychiatric Psychiatric Exam: Normal Affect and Normal Mood Skin Skin Exam: Warm, Dry, Intact and Normal Color <Ari Estrada - Last Filed: 10/16/23 11:41> Vital Signs Vitals: Vital Signs Temperature 98.5 F Pulse Rate 78 Pulse Rate 80 Pulse Rate 80 Pulse Rate 82 Pulse Rate 75 Pulse Rate 74 Pulse Rate 75 Pulse Rate 77 Pulse Rate 80 Pulse Rate 85 Pulse Rate 85 Pulse Rate 81 Pulse Rate 82 Pulse Rate 82 Pulse Rate 83 Pulse Rate 90 Pulse Rate 94 Pulse Rate 102 Pulse Rate 104 Pulse Rate 104 Respiratory Rate 20 Blood Pressure 79/53 Blood Pressure 89/61 Blood Pressure 93/64 Blood Pressure 88/61 Blood Pressure 87/55 Blood Pressure 80/52 Blood Pressure 78/51 Blood Pressure 80/53 Blood Pressure 82/55 Blood Pressure 83/54 Blood Pressure 82/56 Blood Pressure 84/56 Blood Pressure 75/52 Blood Pressure 74/51 Blood Pressure 74/52 Blood Pressure 84/56 O2 Sat by Pulse Oximetry 98 O2 Sat by Pulse Oximetry 97 O2 Sat by Pulse Oximetry 97 O2 Sat by Pulse Oximetry 97 O2 Sat by Pulse Oximetry 97 O2 Sat by Pulse Oximetry 95 O2 Sat by Pulse Oximetry 95 O2 Sat by Pulse Oximetry 96 O2 Sat by Pulse Oximetry 96 O2 Sat by Pulse Oximetry 95 O2 Sat by Pulse Oximetry 94 O2 Sat by Pulse Oximetry 99 O2 Sat by Pulse Oximetry 99 O2 Sat by Pulse Oximetry 99 O2 Sat by Pulse Oximetry 98 O2 Sat by Pulse Oximetry 95 O2 Sat by Pulse Oximetry 94 O2 Sat by Pulse Oximetry 90 O2 Sat by Pulse Oximetry 91 O2 Sat by Pulse Oximetry 90 COURSE <Tawana Kim - Last Filed: 10/19/23 20:11> Treatment Treatment: 07:01 Patient was evaluated,she was hypotensive and iv access was initiated, labs and test were ordered.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 Sodium low 130, potassium 2.5, mag 1.3. CTA w ithout obvious acute abnormalities. Has a persistent obstructed right bronchus with collapse right middle/lower lobes with probable postobstructive pneumonia, similar to the past imaging studies. Will continue IV hydration, potassium supplementation, cover with IV Rocephin, recommend admission. 1130 -discussed with Dr. Castellanos, accepts admission for Dr. Parham. ROR <Tawana Kim - Last Filed: 10/19/23 20:11> Labs Reviewed 10/18/23 05:43 10/18/23 05:43 Laboratory: 10/16/23 07:35 Blood Blood Culture - Preliminary 10/16/23 07:30 Blood Blood Culture - Preliminary WBC 9.2 X10^3/uL (3.6-10.0) 10/16/23 07:02 RBC 3.49 X10^6/uL (3.5-5.4) L 10/16/23 07:02 Hgb 12.9 g/dL (12.0-16.0) 10/16/23 07:02 Hct 36.6 % (36.0-47.0) 10/16/23 07:02 MCV 104.9 fL (80.0-100.0) H 10/16/23 07:02 MCH 37.2 pg (27.0-34.0) H 10/16/23 07:02 MCHC 35.4 g/dL (33.0-35.0) H 10/16/23 07:02 RDW 15.1 % (11.6-16.5) 10/16/23 07:02 Plt Count 101 X10^3/uL (150.0-450.0) L 10/16/23 07:02 Plt Count Comment Decreased (ADEQUATE) A 10/16/23 07:02 MPV 10.8 fL (7.4-11.0) 10/16/23 07:02 Neut % (Auto) 74.1 % (42.0-75.0) 10/16/23 07:02 Lymph % (Auto) 17.5 % (21.0-51.0) L 10/16/23 07:02 [place] % (Auto) 7.7 % (0.0-13.0) 10/16/23 07:02 Eos % (Auto) 0.2 % (0.9-2.9) L 10/16/23 07:02 Baso % (Auto) 0.5 % (0.2-1.0) 10/16/23 07:02 Neut # (Auto) 6.8 x10^3/uL (2.2-4.8) H 10/16/23 07:02 Lymph # (Auto) 1.6 X10^3/uL (1.3-2.9) 10/16/23 07:02 [place] # (Auto) 0.7 x10^3/uL (0.3-0.8) 10/16/23 07:02 Eos # (Auto) 0.0 x10^3/uL (0.0-0.2) 10/16/23 07:02 Baso # (Auto) 0.0 X10^3/uL (0.0-0.1) 10/16/23 07:02 Absolute Nucleated RBC 0.2 /100WBC 10/16/23 07:02 Total Counted 100 10/16/23 07:02 Neutrophils % (Manual) 72 % (39-76) 10/16/23 07:02 Lymphocytes % (Manual) 20 % (13-43) 10/16/23 07:02 Monocytes % (Manual) 8 % (4-9) 10/16/23 07:02 Plt Morphology Comment Normal (NORMAL) 10/16/23 07:02 RBC Morphology Abnormal (NORMAL) A 10/16/23 07:02 Macrocytosis Slight A 10/16/23 07:02 Target Cells Present 10/16/23 07:02 D-Dimer 2.06 ug/ml (0.0-0.57) H 10/16/23 07:02 Sample Site Lbra 10/16/23 07:55 ABG pH 7.490 (7.35-7.45) H 10/16/23 07:55 ABG pCO2 45.0 mmHg (35.0-45.0) 10/16/23 07:55 ABG pO2 84.0 mmHg (80.0-100.0) 10/16/23 07:55 ABG HCO3 34.3 mmol/L (22-26) H* 10/16/23 07:55 ABG O2 Saturation 97.0 % (90-100) 10/16/23 07:55 ABG Base Excess 9.7 mmol/L (-2.0-2.0) H 10/16/23 07:55 Keith Test N/a 10/16/23 07:55 A-a Gradient 88.0 mmHg 10/16/23 07:55 FiO2 32.0 10/16/23 07:55 Blood Gas Comments Pt homer well eb 10/16/23 07:55 Sodium 130 mmol/L (136-145) L 10/16/23 07:02 Corrected Sodium TNP 10/16/23 07:02 Potassium 2.5 mmol/L (3.5-5.1) L* 10/16/23 07:02 Chloride 93 mmol/L (98-107) L 10/16/23 07:02 Carbon Dioxide 31.4 mmol/L (21-32) 10/16/23 07:02 BUN 13 mg/dL (7-18) 10/16/23 07:02 Creatinine 0.75 mg/dL (0.55-1.02) 10/16/23 07:02 Est GFR (MDRD) Af Amer > 60 (>60) 10/16/23 07:02 Est GFR (MDRD) Non-Af > 60 (>60) 10/16/23 07:02 Glucose 97 mg/dL (65-99) 10/16/23 07:02 Lactic Acid 2.0 mmol/L (0.4-2.0) 10/16/23 07:30 Calcium 8.3 mg/dL (8.5-10.1) L 10/16/23 07:02 Corrected Calcium 10.1 mg/dL (8.5-10.1) 10/16/23 07:02 Magnesium 1.3 mg/dL (2.0-2.9) L 10/16/23 07:02 Total Bilirubin 1.10 mg/dL (0.2-1.0) H 10/16/23 07:02 AST 52 Units/L (15-37) H 10/16/23 07:02 ALT 10 Units/L (12-78) L 10/16/23 07:02 Alkaline Phosphatase 134 Units/L (46-116) H 10/16/23 07:02 Ammonia 26 umol/L (11-32) 10/16/23 07:44 Creatine Kinase 16 Units/L (26-192) L 10/16/23 07:44 Troponin I High Sens 42.9 ng/L (4.0-60.0) 10/16/23 07:44 C-Reactive Protein 88.00 mg/L (0-3.0) H 10/16/23 07:02 B-Natriuretic Peptide 346 pg/mL (0-79) H 10/16/23 07:02 Total Protein 6.1 g/dL (6.4-8.2) L 10/16/23 07:02 Albumin 1.8 g/dL (3.4-5.0) L 10/16/23 07:02 Globulin 4.3 g/dL (2.5-4.5) 10/16/23 07:02 Albumin/Globulin Ratio 0.4 Ratio (1.1-2.1) L 10/16/23 07:02 Amylase 12 Units/L (25-115) L 10/16/23 07:02 Lipase 10 Units/L (16-77) L 10/16/23 07:02 Vitamin B12 546 pg/mL (193-986) 10/16/23 07:35 Folate 4.6 ng/mL (>8.6) L 10/16/23 07:35 TSH 3rd Generation 0.960 uIU/mL (0.358-3.74) 10/16/23 07:02 Ethyl Alcohol mg/dL < 3 mg/dL (0-19.9) 10/16/23 07:44 <Ari Estrada - Last Filed: 10/16/23 11:41> Labs Reviewed Laboratory Results Reviewed?: Yes Laboratory: 10/16/23 07:35 Blood Blood Culture - Preliminary 10/16/23 07:30 Blood Blood Culture - Preliminary WBC 9.2 X10^3/uL (3.6-10.0) 10/16/23 07:02 RBC 3.49 X10^6/uL (3.5-5.4) L 10/16/23 07:02 Hgb 12.9 g/dL (12.0-16.0) 10/16/23 07:02 Hct 36.6 % (36.0-47.0) 10/16/23 07:02 MCV 104.9 fL (80.0-100.0) H 10/16/23 07:02 MCH 37.2 pg (27.0-34.0) H 10/16/23 07:02 MCHC 35.4 g/dL (33.0-35.0) H 10/16/23 07:02 RDW 15.1 % (11.6-16.5) 10/16/23 07:02 Plt Count 101 X10^3/uL (150.0-450.0) L 10/16/23 07:02 Plt Count Comment Decreased (ADEQUATE) A 10/16/23 07:02 MPV 10.8 fL (7.4-11.0) 10/16/23 07:02 Neut % (Auto) 74.1 % (42.0-75.0) 10/16/23 07:02 Lymph % (Auto) 17.5 % (21.0-51.0) L 10/16/23 07:02 [place] % (Auto) 7.7 % (0.0-13.0) 10/16/23 07:02 Eos % (Auto) 0.2 % (0.9-2.9) L 10/16/23 07:02 Baso % (Auto) 0.5 % (0.2-1.0) 10/16/23 07:02 Neut # (Auto) 6.8 x10^3/uL (2.2-4.8) H 10/16/23 07:02 Lymph # (Auto) 1.6 X10^3/uL (1.3-2.9) 10/16/23 07:02 [place] # (Auto) 0.7 x10^3/uL (0.3-0.8) 10/16/23 07:02 Eos # (Auto) 0.0 x10^3/uL (0.0-0.2) 10/16/23 07:02 Baso # (Auto) 0.0 X10^3/uL (0.0-0.1) 10/16/23 07:02 Absolute Nucleated RBC 0.2 /100WBC 10/16/23 07:02 Total Counted 100 10/16/23 07:02 Neutrophils % (Manual) 72 % (39-76) 10/16/23 07:02 Lymphocytes % (Manual) 20 % (13-43) 10/16/23 07:02 Monocytes % (Manual) 8 % (4-9) 10/16/23 07:02 Plt Morphology Comment Normal (NORMAL) 10/16/23 07:02 RBC Morphology Abnormal (NORMAL) A 10/16/23 07:02 Macrocytosis Slight A 10/16/23 07:02 Target Cells Present 10/16/23 07:02 D-Dimer 2.06 ug/ml (0.0-0.57) H 10/16/23 07:02 Sample Site Lbra 10/16/23 07:55 ABG pH 7.490 (7.35-7.45) H 10/16/23 07:55 ABG pCO2 45.0 mmHg (35.0-45.0) 10/16/23 07:55 ABG pO2 84.0 mmHg (80.0-100.0) 10/16/23 07:55 ABG HCO3 34.3 mmol/L (22-26) H* 10/16/23 07:55 ABG O2 Saturation 97.0 % (90-100) 10/16/23 07:55 ABG Base Excess 9.7 mmol/L (-2.0-2.0) H 10/16/23 07:55 Keith Test N/a 10/16/23 07:55 A-a Gradient 88.0 mmHg 10/16/23 07:55 FiO2 32.0 10/16/23 07:55 Blood Gas Comments Pt homer well eb 10/16/23 07:55 Sodium 130 mmol/L (136-145) L 10/16/23 07:02 Corrected Sodium TNP 10/16/23 07:02 Potassium 2.5 mmol/L (3.5-5.1) L* 10/16/23 07:02 Chloride 93 mmol/L (98-107) L 10/16/23 07:02 Carbon Dioxide 31.4 mmol/L (21-32) 10/16/23 07:02 BUN 13 mg/dL (7-18) 10/16/23 07:02 Creatinine 0.75 mg/dL (0.55-1.02) 10/16/23 07:02 Est GFR (MDRD) Af Amer > 60 (>60) 10/16/23 07:02 Est GFR (MDRD) Non-Af > 60 (>60) 10/16/23 07:02 Glucose 97 mg/dL (65-99) 10/16/23 07:02 Lactic Acid 2.0 mmol/L (0.4-2.0) 10/16/23 07:30 Calcium 8.3 mg/dL (8.5-10.1) L 10/16/23 07:02 Corrected Calcium 10.1 mg/dL (8.5-10.1) 10/16/23 07:02 Magnesium 1.3 mg/dL (2.0-2.9) L 10/16/23 07:02 Total Bilirubin 1.10 mg/dL (0.2-1.0) H 10/16/23 07:02 AST 52 Units/L (15-37) H 10/16/23 07:02 ALT 10 Units/L (12-78) L 10/16/23 07:02 Alkaline Phosphatase 134 Units/L (46-116) H 10/16/23 07:02 Ammonia 26 umol/L (11-32) 10/16/23 07:44 Creatine Kinase 16 Units/L (26-192) L 10/16/23 07:44 Troponin I High Sens 42.9 ng/L (4.0-60.0) 10/16/23 07:44 C-Reactive Protein 88.00 mg/L (0-3.0) H 10/16/23 07:02 B-Natriuretic Peptide 346 pg/mL (0-79) H 10/16/23 07:02 Total Protein 6.1 g/dL (6.4-8.2) L 10/16/23 07:02 Albumin 1.8 g/dL (3.4-5.0) L 10/16/23 07:02 Globulin 4.3 g/dL (2.5-4.5) 10/16/23 07:02 Albumin/Globulin Ratio 0.4 Ratio (1.1-2.1) L 10/16/23 07:02 Amylase 12 Units/L (25-115) L 10/16/23 07:02 Lipase 10 Units/L (16-77) L 10/16/23 07:02 Vitamin B12 546 pg/mL (193-986) 10/16/23 07:35 Folate 4.6 ng/mL (>8.6) L 10/16/23 07:35 TSH 3rd Generation 0.960 uIU/mL (0.358-3.74) 10/16/23 07:02 Ethyl Alcohol mg/dL < 3 mg/dL (0-19.9) 10/16/23 07:44 XRAY XRAY Interpreted by: Radiologist X-ray Results: EXAM: Portable AP chest HISTORY: CHF COMPARISON: 09/06/2023 FINDINGS: Heart size normal with clear left lung. There is increasing parenchymal opacity at the right base obscuring the right lower heart border, diaphragm and costophrenic angle. IMPRESSION: Persistent and increasing opacity at the right base consistent with recent CT- demonstrated atelectasis of middle and lower lobes. Bronchial obstruction may be present. THIS IS AN ELECTRONICALLY VERIFIED FINAL REPORT 10/16/2023 8:54 AM - Electronically signed by Christopher Arshad MD Opioid <Tawana MoserOleksandr - Last Filed: 10/19/23 20:11> Opioid Risk Tool Age (Sudarshan box if 16-45): No History of Preadolescent Sexual Abuse: No Total: 0 Total Score Risk Category: Low Risk Copyright: Cahd PERRIN predicting aberrant behaviors <Ari Estrada - Last Filed: 10/16/23 11:41> Opioid Risk Tool Total: 0 Total Score Risk Category: Low Risk Discharge Plan Diagnosis Discharge Problem: Acute hypokalemia, Acute hyponatremia Discharge Plan Patient Disposition: ADMITTED INPATIENT Condition: Stable
[2023-10-16 07:07] VITALS: BMI 20.1
[2023-10-16] MEDS ORDERED: NS 1,000 ML IV 1,000 ML IV ONE (07:23)
[2023-10-16] MEDS ORDERED: NS 1,000 ML IV 1,000 ML ONE (07:25)
[2023-10-16 07:39] LABS: BASOPHILS % (AUTO) 0.5 % (0.2-1.0); EOSINOPHILS % (AUTO) 0.2 % (0.9-2.9); HEMATOCRIT 36.6 % (36.0-47.0); HEMOGLOBIN 12.9 g/dL (12.0-16.0); LYMPHOCYTES # (AUTO) 1.6 X10^3/uL (1.3-2.9); LYMPHOCYTES % (AUTO) 17.5 % (21.0-51.0); MEAN CORPUSCULAR HEMOGLOBIN 37.2 pg (27.0-34.0); MEAN CORPUSCULAR HGB CONC 35.4 g/dL (33.0-35.0); MEAN CORPUSCULAR VOLUME 104.9 fL (80.0-100.0); MEAN PLATELET VOLUME 10.8 fL (7.4-11.0); MONOCYTES # (AUTO) 0.7 x10^3/uL (0.3-0.8); MONOCYTES % (AUTO) 7.7 % (0.0-13.0); NEUTROPHILS # (AUTO) 6.8 x10^3/uL (2.2-4.8); NEUTROPHILS % (AUTO) 74.1 % (42.0-75.0); PLATELET COUNT 101 X10^3/uL (150.0-450.0); RED BLOOD COUNT 3.49 X10^6/uL (3.5-5.4); RED CELL DISTRIBUTION WIDTH 15.1 % (11.6-16.5); WHITE BLOOD COUNT 9.2 X10^3/uL (3.6-10.0)
[2023-10-16 07:59] LABS: ABG BASE EXCESS 9.7 mmol/L (-2.0-2.0)
[2023-10-16 08:00] LABS: ABG HCO3 34.3 mmol/L (22-26)
[2023-10-16 08:03] LABS: AMMONIA 26 umol/L (11-32)
[2023-10-16 08:04] LABS: PLATELET MORPHOLOGY COMMENT NORMAL (NORMAL); TARGET CELLS PRESENT
[2023-10-16 08:05] LABS: ALANINE AMINOTRANSFERASE 10 Units/L (12-78); ALBUMIN 1.8 g/dL (3.4-5.0); ALKALINE PHOSPHATASE 134 Units/L (46-116); AMYLASE 12 Units/L (25-115); ASPARTATE AMINO TRANSFERASE 52 Units/L (15-37); BLOOD UREA NITROGEN 13 mg/dL (7-18); CALCIUM 8.3 mg/dL (8.5-10.1); CARBON DIOXIDE 31.4 mmol/L (21-32); CHLORIDE 93 mmol/L (98-107); COR CA(FOR HYPOALB) 10.1 mg/dL (8.5-10.1); CREATININE 0.75 mg/dL (0.55-1.02); GLUCOSE 97 mg/dL (65-99); LIPASE 10 Units/L (16-77); MAGNESIUM 1.3 mg/dL (2.0-2.9); SODIUM 130 mmol/L (136-145); TOTAL PROTEIN 6.1 g/dL (6.4-8.2); eGFR NON BLACK RACES > 60 (>60)
--- NOTE | 2023-10-16 08:05 | EKG ---
Test Reason : weakness Blood Pressure : */* mmHG Vent. Rate : 85 BPM Atrial Rate : 85 BPM P-R Int : 152 ms QRS Dur : 96 ms QT Int : 400 ms P-R-T Axes : 56 -45 43 degrees QTc Int : 476 ms Normal sinus rhythm Possible Left atrial enlargement Incomplete right bundle branch block Left anterior fascicular block Anteroseptal infarct (cited on or before 16-OCT-2023) Abnormal ECG When compared with ECG of 06-SEP-2023 11:16, premature atrial complexes are no longer present Questionable change in initial forces of Septal leads Confirmed by Migel Barron ([id number]) on 10/17/2023 6:05:53 PM Referred By: Confirmed By: Migel Barron
[2023-10-16 08:07] LABS: POTASSIUM 2.5 mmol/L (3.5-5.1)
[2023-10-16 08:08] LABS: BLOOD ALCOHOL < 3 mg/dL (0-19.9); CREATINE KINASE 16 Units/L (26-192)
[2023-10-16] MEDS ORDERED: MAGNESIUM SULFATE 1 GRAM/100 mL PREMIX 1 G/100 ML BAG IV ONE ×4 (08:12→09:21)
[2023-10-16] MEDS ORDERED: K-DUR TAB 20 MEQ PO ONE ×3 (08:13→08:55)
[2023-10-16] MEDS ORDERED: OMNIPAQUE 350 mg/mL 100 mL BTL 100 ML ONE (08:44)
[2023-10-16] MEDS ORDERED: NS 500 ML IV 500 ML IV ONE ×2 (08:44→21:47)
--- NOTE | 2023-10-16 08:59 | RAD ---
EXAM:Portable AP chestHISTORY:CHFCOMPARISON:09/06/2023 r.br.br.br increasing parenchymal opacity at the right base obscuring the right lower heart border, diaphragm and costophrenic angle.IMPRESSION:Persistent and increasing opacity at the right base consistent with recent CT-demonstrated atelectasis of middle and lower lobes. Bronchial obstruction may be present.THIS IS AN ELECTRONICALLY VERIFIED FINAL [id number]/16/2023 8:54 AM - Electronically signed by Christopher Arshad MD
[2023-10-16] MEDS ORDERED: K-RIDER 10 MEQ/NS 100 ML 10 MEQ/100 ML BAG IV SCH ×2 (09:00→12:00)
[2023-10-16] MEDS ORDERED: K-RIDER 10 MEQ/NS 100 ML 10 MEQ/100 ML BAG IV ONE (10:15)
--- NOTE | 2023-10-16 10:23 | CT ---
EXAM:CT PULMONARY ANGIOGRAM CHEST WITH CONTRAST (PE PROTOCOL)HISTORY:ELEV D DIMER, SOB; HTN, COPDCOMPARISON:09/06/2023.TECHNIQUE:Axia l CT images were obtained through the chest after the intravenous administration of contrast for the purposes of the CT pulmonary embolism examination. Coronal reformatted images were included. Maximum intensity projection (MIP) images were performed per pulmonary angiogram protocol.Informed written consent was obtained prior to contrast administration.All CT scans at this facility use dose modulation, iterative reconstruction, and/or weight based dosing when appropriate to reduce radiation dose to as low as reasonably achievable.FINDINGS:Satisfactory opacification of the pulmonary arteries without visible filling defect. Right lower lobe and right middle lobe collapse is again seen with adjacent patchy opacity and endobronchial filling defect, very similar to prior. Left lung grossly clear. No visible pneumothorax or pleural or pericardial effusion. Coronary artery calcifications. Included upper abdomen shows trace ascites. Age-indeterminate mild compression fractures L1, L2, L3. Thoracic aorta appears grossly intact with scattered atherosclerosis. Nonspecific mild mediastinal lymphadenopathy again seen.IMPRESSION:1. No convincing CTA evidence of pulmonary embolism.Obstructed right bronchus intermedius again seen with collapsed right middle and lower lobes with probably postobstructive pneumonia. Bronchoscopy recommended if not already performed.Age-indeterminate lumbar compression fractures. Clinical correlation.THIS IS AN ELECTRONICALLY VERIFIED FINAL [id number]/16/2023 10:19 AM - Electronically signed by Kannan Agudelo MD
[2023-10-16] MEDS ORDERED: ROCEPHIN VIAL 1 GRAM IVP ONE (10:28)
[2023-10-16] MEDS ORDERED: ROCEPHIN VIAL 1 GRAM ONE (10:47)
[2023-10-16] MEDS ORDERED: PATIENT'S HOME MEDICATION (Oxycodone-Acetaminophen 10-325 mg tablet) PO PRN ×2 (11:52→12:16)
[2023-10-16] MEDS ORDERED: CONSULT PHARMACY - POTASSIUM & MAGNESIUM XX SCH (12:00)
[2023-10-16] MEDS ORDERED: MAG-OX TAB PO SCH (12:00)
[2023-10-16] MEDS: D5 NS 1,000 ML IV 1,000 ML IV SCH ×2 (12:27→20:57)
[2023-10-16] MEDS: PriLOSEC PO SCH (12:27)
[2023-10-16] MEDS: ROCEPHIN VIAL 1 GRAM 1 G in NS 100 ML IV 100 ML IV SCH (12:27)
--- NOTE | 2023-10-16 13:43 | DR.H&P ---
H&P History & Physical for Day of: H&P Date: 10/16/23 Chief Complaint Chief Complaint: "CANT HARDLY GO" WEAKNESS Allergies Allergies Allergy/AdvReac Type Severity Reaction Status Date / Time lisinopril Allergy Unknown Verified 08/11/23 09:23 History of Present Illness History of Present Illness: PT IS 58 WF, ER ADMISSION AFTER PRESENTING PER EMS WITH CO SEVERE WEAKNESS. PT STATES ONSET TODAY. PT REPORTS SHE HAS BEEN TAKING A WATER PILL AT HOME FOR SWELLING IN HER LEGS, WHICH HAS IMPROVED, BUT PT NOT TAKING HER POTASSIUM SUPPLEMENT. PT HAS PMH OF COPD CHRONIC LUNG DISEASE, OA, GERD, HTN. PT ADMITTED FOR TREATMENT OF ACUTE ILLNESS. Past Medical History Past Medical History: COPD, GERD and Hypertension Past Surgical History Surgical History: Cholecystectomy Family History Family Medical History: Hypertension Social History Does patient currently use any type of tobacco product: Yes Have you used tobacco products in the last 12 months: Yes Type of Tobacco Use: Cigarettes Does any household member use tobacco: Yes Alcohol Use: Occasionally Drug Use: Prescription Drugs Medications Home Medications: Home Medications Medication Instructions Recorded Confirmed Type carvedilol 12.5 mg tablet 12.5 mg PO BID 09/06/23 10/16/23 History furosemide 20 mg tablet 20 mg PO QDAY 09/06/23 10/16/23 History hydrochlorothiazide 12.5 mg capsule 12.5 mg PO QDAY 09/06/23 10/16/23 History omeprazole 40 mg capsule,delayed 40 mg PO QDAY 09/06/23 10/16/23 History release Labs 10/16/23 07:02 10/16/23 07:02 Labs: Laboratory WBC 9.2 X10^3/uL (3.6-10.0) 10/16/23 07:02 RBC 3.49 X10^6/uL (3.5-5.4) L 10/16/23 07:02 Hgb 12.9 g/dL (12.0-16.0) 10/16/23 07:02 Hct 36.6 % (36.0-47.0) 10/16/23 07:02 MCV 104.9 fL (80.0-100.0) H 10/16/23 07:02 MCH 37.2 pg (27.0-34.0) H 10/16/23 07:02 MCHC 35.4 g/dL (33.0-35.0) H 10/16/23 07:02 RDW 15.1 % (11.6-16.5) 10/16/23 07:02 Plt Count 101 X10^3/uL (150.0-450.0) L 10/16/23 07:02 Plt Count Comment Decreased (ADEQUATE) A 10/16/23 07:02 MPV 10.8 fL (7.4-11.0) 10/16/23 07:02 Neut % (Auto) 74.1 % (42.0-75.0) 10/16/23 07:02 Lymph % (Auto) 17.5 % (21.0-51.0) L 10/16/23 07:02 Maury % (Auto) 7.7 % (0.0-13.0) 10/16/23 07:02 Eos % (Auto) 0.2 % (0.9-2.9) L 10/16/23 07:02 Baso % (Auto) 0.5 % (0.2-1.0) 10/16/23 07:02 Neut # (Auto) 6.8 x10^3/uL (2.2-4.8) H 10/16/23 07:02 Lymph # (Auto) 1.6 X10^3/uL (1.3-2.9) 10/16/23 07:02 Maury # (Auto) 0.7 x10^3/uL (0.3-0.8) 10/16/23 07:02 Eos # (Auto) 0.0 x10^3/uL (0.0-0.2) 10/16/23 07:02 Baso # (Auto) 0.0 X10^3/uL (0.0-0.1) 10/16/23 07:02 Absolute Nucleated RBC 0.2 /100WBC 10/16/23 07:02 Total Counted 100 10/16/23 07:02 Neutrophils % (Manual) 72 % (39-76) 10/16/23 07:02 Lymphocytes % (Manual) 20 % (13-43) 10/16/23 07:02 Monocytes % (Manual) 8 % (4-9) 10/16/23 07:02 Plt Morphology Comment Normal (NORMAL) 10/16/23 07:02 RBC Morphology Abnormal (NORMAL) A 10/16/23 07:02 Macrocytosis Slight A 10/16/23 07:02 Target Cells Present 10/16/23 07:02 D-Dimer 2.06 ug/ml (0.0-0.57) H 10/16/23 07:02 Sample Site Lbra 10/16/23 07:55 ABG pH 7.490 (7.35-7.45) H 10/16/23 07:55 ABG pCO2 45.0 mmHg (35.0-45.0) 10/16/23 07:55 ABG pO2 84.0 mmHg (80.0-100.0) 10/16/23 07:55 ABG HCO3 34.3 mmol/L (22-26) H* 10/16/23 07:55 ABG O2 Saturation 97.0 % (90-100) 10/16/23 07:55 ABG Base Excess 9.7 mmol/L (-2.0-2.0) H 10/16/23 07:55 Keith Test N/a 10/16/23 07:55 A-a Gradient 88.0 mmHg 10/16/23 07:55 FiO2 32.0 10/16/23 07:55 Blood Gas Comments Pt homer well eb 10/16/23 07:55 Sodium 130 mmol/L (136-145) L 10/16/23 07:02 Corrected Sodium TNP 10/16/23 07:02 Potassium 2.5 mmol/L (3.5-5.1) L* 10/16/23 07:02 Chloride 93 mmol/L (98-107) L 10/16/23 07:02 Carbon Dioxide 31.4 mmol/L (21-32) 10/16/23 07:02 BUN 13 mg/dL (7-18) 10/16/23 07:02 Creatinine 0.75 mg/dL (0.55-1.02) 10/16/23 07:02 Est GFR (MDRD) Af Amer > 60 (>60) 10/16/23 07:02 Est GFR (MDRD) Non-Af > 60 (>60) 10/16/23 07:02 Glucose 97 mg/dL (65-99) 10/16/23 07:02 Lactic Acid 2.0 mmol/L (0.4-2.0) 10/16/23 07:30 Calcium 8.3 mg/dL (8.5-10.1) L 10/16/23 07:02 Corrected Calcium 10.1 mg/dL (8.5-10.1) 10/16/23 07:02 Magnesium 1.3 mg/dL (2.0-2.9) L 10/16/23 07:02 Total Bilirubin 1.10 mg/dL (0.2-1.0) H 10/16/23 07:02 AST 52 Units/L (15-37) H 10/16/23 07:02 ALT 10 Units/L (12-78) L 10/16/23 07:02 Alkaline Phosphatase 134 Units/L (46-116) H 10/16/23 07:02 Ammonia 26 umol/L (11-32) 10/16/23 07:44 Creatine Kinase 16 Units/L (26-192) L 10/16/23 07:44 Troponin I High Sens 42.9 ng/L (4.0-60.0) 10/16/23 07:44 C-Reactive Protein 88.00 mg/L (0-3.0) H 10/16/23 07:02 B-Natriuretic Peptide 346 pg/mL (0-79) H 10/16/23 07:02 Total Protein 6.1 g/dL (6.4-8.2) L 10/16/23 07:02 Albumin 1.8 g/dL (3.4-5.0) L 10/16/23 07:02 Globulin 4.3 g/dL (2.5-4.5) 10/16/23 07:02 Albumin/Globulin Ratio 0.4 Ratio (1.1-2.1) L 10/16/23 07:02 Amylase 12 Units/L (25-115) L 10/16/23 07:02 Lipase 10 Units/L (16-77) L 10/16/23 07:02 Vitamin B12 546 pg/mL (193-986) 10/16/23 07:35 Folate 4.6 ng/mL (>8.6) L 10/16/23 07:35 TSH 3rd Generation 0.960 uIU/mL (0.358-3.74) 10/16/23 07:02 Ethyl Alcohol mg/dL < 3 mg/dL (0-19.9) 10/16/23 07:44 Review of Systems Constitutional: Weakness Eyes: No Symptoms Reported ENT: No Symptoms Reported Respiratory: Shortness of Breath Cardiovascular: No Symptoms Reported Gastrointestinal: Nausea Musculoskeletal: Leg Pain Skin: No Symptoms Reported Neurological: Weakness Physical Exam Vital Signs: Vital Signs Temperature 98.4 F Temperature 98.5 F Pulse Rate [Left Radial] 88 Pulse Rate 88 Pulse Rate 81 Pulse Rate 79 Pulse Rate 78 Pulse Rate 80 Pulse Rate 80 Pulse Rate 82 Pulse Rate 75 Pulse Rate 74 Pulse Rate 75 Pulse Rate 77 Pulse Rate 80 Pulse Rate 85 Pulse Rate 85 Pulse Rate 81 Pulse Rate 82 Pulse Rate 82 Pulse Rate 83 Pulse Rate 90 Pulse Rate 94 Pulse Rate 102 Pulse Rate 104 Pulse Rate 104 Respiratory Rate 18 Respiratory Rate 20 Blood Pressure [Left Arm] 103/64 Blood Pressure 103/64 Blood Pressure 98/63 Blood Pressure 100/58 Blood Pressure 79/53 Blood Pressure 89/61 Blood Pressure 93/64 Blood Pressure 88/61 Blood Pressure 87/55 Blood Pressure 80/52 Blood Pressure 78/51 Blood Pressure 80/53 Blood Pressure 82/55 Blood Pressure 83/54 Blood Pressure 82/56 Blood Pressure 84/56 Blood Pressure 75/52 Blood Pressure 74/51 Blood Pressure 74/52 Blood Pressure 84/56 O2 Sat by Pulse Oximetry 98 O2 Sat by Pulse Oximetry 98 O2 Sat by Pulse Oximetry 97 O2 Sat by Pulse Oximetry 98 O2 Sat by Pulse Oximetry 98 O2 Sat by Pulse Oximetry 97 O2 Sat by Pulse Oximetry 97 O2 Sat by Pulse Oximetry 97 O2 Sat by Pulse Oximetry 97 O2 Sat by Pulse Oximetry 95 O2 Sat by Pulse Oximetry 95 O2 Sat by Pulse Oximetry 96 O2 Sat by Pulse Oximetry 96 O2 Sat by Pulse Oximetry 95 O2 Sat by Pulse Oximetry 94 O2 Sat by Pulse Oximetry 99 O2 Sat by Pulse Oximetry 99 O2 Sat by Pulse Oximetry 99 O2 Sat by Pulse Oximetry 98 O2 Sat by Pulse Oximetry 95 O2 Sat by Pulse Oximetry 94 O2 Sat by Pulse Oximetry 90 O2 Sat by Pulse Oximetry 91 O2 Sat by Pulse Oximetry 90 Oriented: Normal Eyes: Normal Ear: Normal Nose: Normal Throat: Normal Respiratory: Diminished Throughout Cardiovascular: Normal : Normal Auscultation: Bowel Sounds: Normal Palpation: Normal Tenderness: Normal Skin: Decreased Turgur Musculoskeletal: Motor Deficit Psychiatric: Anxiety Speech Pattern: Clear and Appropriate Assessment/Plan (1) Acute hypokalemia: Narrative Support Text: ADMIT, GENTLE IV HYDRATION POTASSIUM AND MAGNESIUM REPLACEMENT THERAPY VERIFY HOME MEDICATION REPEAT M CMP RESP THERAPY, CONTINUE SUPPLEMENTAL O2 Status: Acute (2) Acute hyponatremia: Status: Acute (3) COPD (chronic obstructive pulmonary disease): Status: Acute
[2023-10-16 14:27] LABS: MAGNESIUM 2.1 mg/dL (2.0-2.9)
[2023-10-16] MEDS ORDERED: COLACE CAP 100 MG PO PRN (15:53)
[2023-10-16] MEDS: PROVENTIL NEB TX 0.083% 2.5MG/ 3ML NEB SCH ×2 (17:26→20:36)
[2023-10-16] MEDS ORDERED: PULMICORT NEB TX 0.5 MG NEB ONE (19:50)
[2023-10-16] MEDS: PULMICORT NEB TX 0.5 MG NEB SCH (20:36)
[2023-10-16] MEDS: COREG TAB 12.5 MG PO SCH (20:57)
[2023-10-16] MEDS: LYRICA CAP 150 mg PO SCH (21:23)
[2023-10-16] MEDS: K-DUR TAB 20 MEQ PO SCH (21:23)
[2023-10-16] MEDS ORDERED: NS 1,000 ML IV 1,000 ML IV SCH (22:00)
[2023-10-16] MEDS: NS + KCL 20 MEQ/L 1,000 ML IV SCH (22:54)
[2023-10-17 06:37] LABS: ALANINE AMINOTRANSFERASE 6 Units/L (12-78); ALBUMIN 1.3 g/dL (3.4-5.0); ALKALINE PHOSPHATASE 97 Units/L (46-116); ASPARTATE AMINO TRANSFERASE 39 Units/L (15-37); BLOOD UREA NITROGEN 11 mg/dL (7-18); CALCIUM 7.5 mg/dL (8.5-10.1); CARBON DIOXIDE 30.2 mmol/L (21-32); CHLORIDE 104 mmol/L (98-107); COR CA(FOR HYPOALB) 9.7 mg/dL (8.5-10.1); CREATININE 0.49 mg/dL (0.55-1.02); GLUCOSE 70 mg/dL (65-99); POTASSIUM 3.6 mmol/L (3.5-5.1); SODIUM 137 mmol/L (136-145); TOTAL PROTEIN 4.9 g/dL (6.4-8.2); eGFR NON BLACK RACES > 60 (>60)
[2023-10-17 06:46] LABS: BASOPHILS # (AUTO) 0.2 X10^3/uL (0.0-0.1); BASOPHILS % (AUTO) 1.7 % (0.2-1.0); EOSINOPHILS # (AUTO) 0.2 x10^3/uL (0.0-0.2); EOSINOPHILS % (AUTO) 1.9 % (0.9-2.9); HEMATOCRIT 30.6 % (36.0-47.0); HEMOGLOBIN 10.4 g/dL (12.0-16.0); LYMPHOCYTES # (AUTO) 1.7 X10^3/uL (1.3-2.9); LYMPHOCYTES % (AUTO) 18.7 % (21.0-51.0); MEAN CORPUSCULAR HEMOGLOBIN 36.6 pg (27.0-34.0); MEAN CORPUSCULAR HGB CONC 33.8 g/dL (33.0-35.0); MEAN CORPUSCULAR VOLUME 108.1 fL (80.0-100.0); MEAN PLATELET VOLUME 10.5 fL (7.4-11.0); MONOCYTES # (AUTO) 0.5 x10^3/uL (0.3-0.8); MONOCYTES % (AUTO) 5.3 % (0.0-13.0); NEUTROPHILS # (AUTO) 6.5 x10^3/uL (2.2-4.8); NEUTROPHILS % (AUTO) 72.4 % (42.0-75.0); PLATELET COUNT 96 X10^3/uL (150.0-450.0); RED BLOOD COUNT 2.83 X10^6/uL (3.5-5.4); RED CELL DISTRIBUTION WIDTH 15.4 % (11.6-16.5); WHITE BLOOD COUNT 8.9 X10^3/uL (3.6-10.0)
[2023-10-17] MEDS ORDERED: CONSULT PHARMACY - POTASSIUM & MAGNESIUM XX SCH (07:00)
[2023-10-17 07:16] LABS: PLATELET MORPHOLOGY COMMENT NORMAL (NORMAL)
[2023-10-17 07:17] LABS: TARGET CELLS PRESENT
[2023-10-17] MEDS: PriLOSEC PO SCH (08:12)
[2023-10-17] MEDS: K-DUR TAB 20 MEQ PO SCH ×2 (08:12→20:43)
[2023-10-17] MEDS: LYRICA CAP 150 mg PO SCH ×2 (08:12→20:43)
[2023-10-17] MEDS: ROCEPHIN VIAL 1 GRAM 1 G in NS 100 ML IV 100 ML IV SCH (08:13)
[2023-10-17] MEDS: PERCOCET TAB 5/325 MG PO PRN ×3 (08:13→20:43)
[2023-10-17] MEDS: NS + KCL 20 MEQ/L 1,000 ML IV SCH ×2 (08:13→19:51)
[2023-10-17] MEDS: COREG TAB 12.5 MG PO SCH ×2 (08:19→20:46)
[2023-10-17] MEDS ORDERED: PATIENT'S HOME MEDICATION (Omeprazole 40 mg capsule,delayed release(DR/EC)) PO SCH (09:00)
[2023-10-17] MEDS: PULMICORT NEB TX 0.5 MG NEB SCH ×2 (09:13→20:40)
[2023-10-17] MEDS: PROVENTIL NEB TX 0.083% 2.5MG/ 3ML NEB SCH ×4 (09:13→20:40)
[2023-10-17] MEDS ORDERED: MAG-OX TAB PO SCH (10:00)
[2023-10-17] MEDS ORDERED: K-DUR TAB 20 MEQ PO SCH (10:00)
[2023-10-17 13:30] LABS: INR 1.31 (0.8-1.3)
[2023-10-18] MEDS: NS + KCL 20 MEQ/L 1,000 ML IV SCH ×3 (00:33→06:04)
[2023-10-18] MEDS: PERCOCET TAB 5/325 MG PO PRN ×2 (02:20→08:51)
[2023-10-18 06:35] LABS: BASOPHILS % (AUTO) 0.8 % (0.2-1.0); EOSINOPHILS # (AUTO) 0.1 x10^3/uL (0.0-0.2); EOSINOPHILS % (AUTO) 2.7 % (0.9-2.9); HEMATOCRIT 31.4 % (36.0-47.0); HEMOGLOBIN 10.6 g/dL (12.0-16.0); LYMPHOCYTES # (AUTO) 1.2 X10^3/uL (1.3-2.9); MEAN CORPUSCULAR HEMOGLOBIN 36.8 pg (27.0-34.0); MEAN CORPUSCULAR HGB CONC 33.8 g/dL (33.0-35.0); MEAN PLATELET VOLUME 10.5 fL (7.4-11.0); MONOCYTES # (AUTO) 0.3 x10^3/uL (0.3-0.8); MONOCYTES % (AUTO) 5.8 % (0.0-13.0); NEUTROPHILS # (AUTO) 3.6 x10^3/uL (2.2-4.8); NEUTROPHILS % (AUTO) 67.7 % (42.0-75.0); PLATELET COUNT 86 X10^3/uL (150.0-450.0); RED BLOOD COUNT 2.88 X10^6/uL (3.5-5.4); RED CELL DISTRIBUTION WIDTH 15.5 % (11.6-16.5); WHITE BLOOD COUNT 5.3 X10^3/uL (3.6-10.0)
[2023-10-18 06:50] LABS: ALANINE AMINOTRANSFERASE 16 Units/L (12-78); ALBUMIN 1.3 g/dL (3.4-5.0); ALKALINE PHOSPHATASE 147 Units/L (46-116); ASPARTATE AMINO TRANSFERASE 99 Units/L (15-37); BLOOD UREA NITROGEN 8 mg/dL (7-18); CALCIUM 7.7 mg/dL (8.5-10.1); CARBON DIOXIDE 26.8 mmol/L (21-32); CHLORIDE 109 mmol/L (98-107); COR CA(FOR HYPOALB) 9.9 mg/dL (8.5-10.1); CREATININE 0.45 mg/dL (0.55-1.02); GLUCOSE 69 mg/dL (65-99); MAGNESIUM 1.8 mg/dL (2.0-2.9); POTASSIUM 5.3 mmol/L (3.5-5.1); SODIUM 139 mmol/L (136-145); TOTAL PROTEIN 5.2 g/dL (6.4-8.2); eGFR NON BLACK RACES > 60 (>60)
[2023-10-18 07:11] LABS: PLATELET MORPHOLOGY COMMENT NORMAL (NORMAL); TARGET CELLS SLIGHT
[2023-10-18] MEDS ORDERED: NS 1,000 ML IV 1,000 ML IV SCH (08:00)
[2023-10-18 08:23] VITALS: BP 130/83; RESP 18; TEMP 97.4
[2023-10-18] MEDS: PriLOSEC PO SCH (08:51)
[2023-10-18] MEDS: LYRICA CAP 150 mg PO SCH (08:51)
[2023-10-18] MEDS: ROCEPHIN VIAL 1 GRAM 1 G in NS 100 ML IV 100 ML IV SCH (08:51)
[2023-10-18] MEDS: COREG TAB 12.5 MG PO SCH (08:51)
[2023-10-18] MEDS: PROVENTIL NEB TX 0.083% 2.5MG/ 3ML NEB SCH (08:57)
[2023-10-18] MEDS: PULMICORT NEB TX 0.5 MG NEB SCH (08:57)
[2023-10-18 08:59] VITALS: PULSE 84; O2SAT 97
--- NOTE | 2023-10-19 08:54 | W.DIS.FURT ---
Summary of Discharge Discharge Summary of Date Date of Exam: 10/18/23 Admission Date Date of Admission: 10/16/23 Admission Diagnosis Patient Problems (Updated 10/16/23 @ 11:40 by Ari Estrada) Acute hypokalemia (Acute) E87.6 Acute hyponatremia (Acute) E87.1 Hospital Course: Patient is a 58-year-old female that was admitted for acute hypokalemia, COPD, hypertension. Her hospital/treatment course included receiving electrolyte replacement therapy. Hypokalemia resolved. For her COPD she did receive respiratory therapy, supplemental oxygen, and pulmonary toileting. Symptoms significantly improved. She had her home medicines restarted and her hypertension monitored. Patient responded well to treatments and symptoms significantly improved. She was discharged in stable condition, instructed to follow-up with her PCP in 1 week and continue home medications. Vital Signs: Vital Signs (72 hours) 10/16/23 09:08 10/16/23 09:09 10/16/23 09:09 Temperature Pulse Rate 85 85 Pulse Rate [Left Radial] Respiratory Rate Blood Pressure 83/54 Blood Pressure [Left Arm] O2 Sat by Pulse Oximetry 94 L 95 Oxygen Delivery Method Oxygen Flow Rate FIO2% 10/16/23 09:15 10/16/23 09:15 10/16/23 09:30 Temperature Pulse Rate 80 Pulse Rate [Left Radial] Respiratory Rate Blood Pressure 82/55 80/53 Blood Pressure [Left Arm] O2 Sat by Pulse Oximetry 96 Oxygen Delivery Method Oxygen Flow Rate FIO2% 10/16/23 09:30 10/16/23 09:45 10/16/23 09:45 Temperature Pulse Rate 77 75 Pulse Rate [Left Radial] Respiratory Rate Blood Pressure 78/51 Blood Pressure [Left Arm] O2 Sat by Pulse Oximetry 96 95 Oxygen Delivery Method Oxygen Flow Rate FIO2% 10/16/23 10:00 10/16/23 10:00 10/16/23 10:15 Temperature Pulse Rate 74 75 Pulse Rate [Left Radial] Respiratory Rate Blood Pressure 80/52 Blood Pressure [Left Arm] O2 Sat by Pulse Oximetry 95 97 Oxygen Delivery Method Oxygen Flow Rate FIO2% 10/16/23 10:15 10/16/23 10:30 10/16/23 10:30 Temperature Pulse Rate 82 Pulse Rate [Left Radial] Respiratory Rate Blood Pressure 87/55 88/61 Blood Pressure [Left Arm] O2 Sat by Pulse Oximetry 97 Oxygen Delivery Method Oxygen Flow Rate FIO2% 10/16/23 10:45 10/16/23 10:45 10/16/23 11:00 Temperature Pulse Rate 80 80 Pulse Rate [Left Radial] Respiratory Rate Blood Pressure 93/64 Blood Pressure [Left Arm] O2 Sat by Pulse Oximetry 97 97 Oxygen Delivery Method Oxygen Flow Rate FIO2% 10/16/23 11:00 10/16/23 11:15 10/16/23 11:15 Temperature Pulse Rate 78 Pulse Rate [Left Radial] Respiratory Rate Blood Pressure 89/61 79/53 Blood Pressure [Left Arm] O2 Sat by Pulse Oximetry 98 Oxygen Delivery Method Oxygen Flow Rate FIO2% 10/16/23 11:30 10/16/23 11:30 10/16/23 11:45 Temperature Pulse Rate 79 Pulse Rate [Left Radial] Respiratory Rate Blood Pressure 100/58 98/63 Blood Pressure [Left Arm] O2 Sat by Pulse Oximetry 98 Oxygen Delivery Method Nasal Cannula Oxygen Flow Rate 3 FIO2% 10/16/23 11:45 10/16/23 11:54 10/16/23 11:54 Temperature Pulse Rate 81 88 Pulse Rate [Left Radial] Respiratory Rate Blood Pressure 103/64 Blood Pressure [Left Arm] O2 Sat by Pulse Oximetry 97 98 Oxygen Delivery Method Oxygen Flow Rate FIO2% 10/16/23 12:00 10/16/23 12:00 10/16/23 16:06 Temperature 98.4 F Pulse Rate Pulse Rate [Left Radial] 88 Respiratory Rate 18 Blood Pressure Blood Pressure [Left Arm] 103/64 O2 Sat by Pulse Oximetry 98 Oxygen Delivery Method Nasal Cannula Nasal Cannula Nasal Cannula Oxygen Flow Rate 3 3 3 FIO2% 32 10/16/23 16:00 10/16/23 17:27 10/16/23 19:00 Temperature 97.6 F Pulse Rate 90 Pulse Rate [Left Radial] 96 H Respiratory Rate 18 Blood Pressure Blood Pressure [Left Arm] 98/60 O2 Sat by Pulse Oximetry 97 96 Oxygen Delivery Method Nasal Cannula Nasal Cannula Oxygen Flow Rate 3 3 FIO2% 10/16/23 20:00 10/16/23 20:37 10/16/23 20:37 Temperature 97.8 F Pulse Rate 85 Pulse Rate [Left Radial] 89 Respiratory Rate 18 Blood Pressure Blood Pressure [Left Arm] 90/46 O2 Sat by Pulse Oximetry 96 95 Oxygen Delivery Method Nasal Cannula Nasal Cannula Oxygen Flow Rate 3 3 FIO2% 32 10/16/23 21:29 10/17/23 00:00 10/17/23 04:00 Temperature 97.9 F 98.0 F Pulse Rate Pulse Rate [Left Radial] 81 77 Respiratory Rate 18 18 Blood Pressure Blood Pressure [Left Arm] 80/40 89/52 80/53 O2 Sat by Pulse Oximetry 98 99 Oxygen Delivery Method Room Air Room Air Oxygen Flow Rate FIO2% 10/17/23 07:00 10/17/23 08:13 10/17/23 08:00 Temperature 98.0 F Pulse Rate Pulse Rate [Left Radial] 90 Respiratory Rate 18 18 Blood Pressure Blood Pressure [Left Arm] 107/64 O2 Sat by Pulse Oximetry 95 Oxygen Delivery Method Nasal Cannula Oxygen Flow Rate 2 FIO2% 10/17/23 09:13 10/17/23 09:13 10/17/23 12:28 Temperature Pulse Rate Pulse Rate [Left Radial] Respiratory Rate 18 Blood Pressure Blood Pressure [Left Arm] O2 Sat by Pulse Oximetry 99 Oxygen Delivery Method Nasal Cannula Oxygen Flow Rate 3 FIO2% 32 10/17/23 12:00 10/17/23 15:01 10/17/23 16:00 Temperature 98.0 F 98.3 F Pulse Rate Pulse Rate [Left Radial] 76 77 Respiratory Rate 20 18 20 Blood Pressure Blood Pressure [Left Arm] 103/63 96/52 O2 Sat by Pulse Oximetry 99 99 Oxygen Delivery Method Room Air Room Air Oxygen Flow Rate FIO2% 10/17/23 16:01 10/17/23 20:43 10/17/23 20:00 Temperature 98.1 F Pulse Rate Pulse Rate [Left Radial] 80 Respiratory Rate 18 20 19 Blood Pressure Blood Pressure [Left Arm] 110/60 O2 Sat by Pulse Oximetry 99 Oxygen Delivery Method Nasal Cannula Oxygen Flow Rate 2 FIO2% 10/17/23 19:00 10/17/23 21:43 10/18/23 00:00 Temperature 98.2 F Pulse Rate Pulse Rate [Left Radial] 73 Respiratory Rate 18 20 Blood Pressure Blood Pressure [Left Arm] 91/60 O2 Sat by Pulse Oximetry 97 Oxygen Delivery Method Nasal Cannula Nasal Cannula Oxygen Flow Rate 2 2 FIO2% 10/17/23 20:40 10/17/23 20:40 10/18/23 02:20 Temperature Pulse Rate 78 Pulse Rate [Left Radial] Respiratory Rate 20 Blood Pressure Blood Pressure [Left Arm] O2 Sat by Pulse Oximetry 100 Oxygen Delivery Method Nasal Cannula Oxygen Flow Rate 3 FIO2% 32 10/18/23 03:20 10/18/23 04:00 10/18/23 07:00 Temperature 97.8 F Pulse Rate Pulse Rate [Left Radial] 78 Respiratory Rate 18 19 Blood Pressure Blood Pressure [Left Arm] 108/67 O2 Sat by Pulse Oximetry 99 Oxygen Delivery Method Nasal Cannula Nasal Cannula Oxygen Flow Rate 2 2 FIO2% 10/18/23 08:00 10/18/23 08:51 10/18/23 08:57 Temperature 97.4 F L Pulse Rate Pulse Rate [Left Radial] 87 Respiratory Rate 18 18 Blood Pressure Blood Pressure [Left Arm] 130/83 O2 Sat by Pulse Oximetry 96 Oxygen Delivery Method Nasal Cannula Nasal Cannula Oxygen Flow Rate 2 2 FIO2% 32 10/18/23 08:58 Temperature Pulse Rate 84 Pulse Rate [Left Radial] Respiratory Rate Blood Pressure Blood Pressure [Left Arm] O2 Sat by Pulse Oximetry 97 Oxygen Delivery Method Oxygen Flow Rate FIO2% Labs: Laboratory Last Values WBC 5.3 X10^3/uL (3.6-10.0) 10/18/23 05:43 RBC 2.88 X10^6/uL (3.5-5.4) L 10/18/23 05:43 Hgb 10.6 g/dL (12.0-16.0) L 10/18/23 05:43 Hct 31.4 % (36.0-47.0) L 10/18/23 05:43 MCV 109.0 fL (80.0-100.0) H 10/18/23 05:43 MCH 36.8 pg (27.0-34.0) H 10/18/23 05:43 MCHC 33.8 g/dL (33.0-35.0) 10/18/23 05:43 RDW 15.5 % (11.6-16.5) 10/18/23 05:43 Plt Count 86 X10^3/uL (150.0-450.0) L 10/18/23 05:43 Plt Count Comment Decreased (ADEQUATE) A 10/18/23 05:43 MPV 10.5 fL (7.4-11.0) 10/18/23 05:43 Neut % (Auto) 67.7 % (42.0-75.0) 10/18/23 05:43 Lymph % (Auto) 23.0 % (21.0-51.0) 10/18/23 05:43 Stearns % (Auto) 5.8 % (0.0-13.0) 10/18/23 05:43 Eos % (Auto) 2.7 % (0.9-2.9) 10/18/23 05:43 Baso % (Auto) 0.8 % (0.2-1.0) 10/18/23 05:43 Neut # (Auto) 3.6 x10^3/uL (2.2-4.8) 10/18/23 05:43 Lymph # (Auto) 1.2 X10^3/uL (1.3-2.9) L 10/18/23 05:43 Stearns # (Auto) 0.3 x10^3/uL (0.3-0.8) 10/18/23 05:43 Eos # (Auto) 0.1 x10^3/uL (0.0-0.2) 10/18/23 05:43 Baso # (Auto) 0.0 X10^3/uL (0.0-0.1) 10/18/23 05:43 Absolute Nucleated RBC 0.0 /100WBC 10/18/23 05:43 Total Counted 100 10/16/23 07:02 Neutrophils % (Manual) 72 % (39-76) 10/16/23 07:02 Lymphocytes % (Manual) 20 % (13-43) 10/16/23 07:02 Monocytes % (Manual) 8 % (4-9) 10/16/23 07:02 Plt Morphology Comment Normal (NORMAL) 10/18/23 05:43 RBC Morphology Abnormal (NORMAL) A 10/18/23 05:43 Macrocytosis 1+ A 10/18/23 05:43 Target Cells Slight A 10/18/23 05:43 PT 16.0 SECONDS (11.8-14.3) 10/17/23 05:10 INR Target Range - 10/17/23 05:10 INR 1.31 (0.8-1.3) H 10/17/23 05:10 D-Dimer 2.06 ug/ml (0.0-0.57) H 10/16/23 07:02 Sample Site Lbra 10/16/23 07:55 ABG pH 7.490 (7.35-7.45) H 10/16/23 07:55 ABG pCO2 45.0 mmHg (35.0-45.0) 10/16/23 07:55 ABG pO2 84.0 mmHg (80.0-100.0) 10/16/23 07:55 ABG HCO3 34.3 mmol/L (22-26) H* 10/16/23 07:55 ABG O2 Saturation 97.0 % (90-100) 10/16/23 07:55 ABG Base Excess 9.7 mmol/L (-2.0-2.0) H 10/16/23 07:55 Keith Test N/a 10/16/23 07:55 A-a Gradient 88.0 mmHg 10/16/23 07:55 FiO2 32.0 10/16/23 07:55 Blood Gas Comments Pt homer well eb 10/16/23 07:55 Sodium 139 mmol/L (136-145) 10/18/23 05:43 Corrected Sodium TNP 10/18/23 05:43 Potassium 5.3 mmol/L (3.5-5.1) H 10/18/23 05:43 Chloride 109 mmol/L (98-107) H 10/18/23 05:43 Carbon Dioxide 26.8 mmol/L (21-32) 10/18/23 05:43 BUN 8 mg/dL (7-18) 10/18/23 05:43 Creatinine 0.45 mg/dL (0.55-1.02) L 10/18/23 05:43 Est GFR (MDRD) Af Amer > 60 (>60) 10/18/23 05:43 Est GFR (MDRD) Non-Af > 60 (>60) 10/18/23 05:43 Glucose 69 mg/dL (65-99) 10/18/23 05:43 Lactic Acid 2.0 mmol/L (0.4-2.0) 10/16/23 07:30 Calcium 7.7 mg/dL (8.5-10.1) L 10/18/23 05:43 Corrected Calcium 9.9 mg/dL (8.5-10.1) 10/18/23 05:43 Magnesium 1.8 mg/dL (2.0-2.9) L 10/18/23 05:43 Total Bilirubin 0.40 mg/dL (0.2-1.0) 10/18/23 05:43 AST 99 Units/L (15-37) H 10/18/23 05:43 ALT 16 Units/L (12-78) 10/18/23 05:43 Alkaline Phosphatase 147 Units/L (46-116) H 10/18/23 05:43 Ammonia 26 umol/L (11-32) 10/16/23 07:44 Creatine Kinase 16 Units/L (26-192) L 10/16/23 07:44 Troponin I High Sens 42.9 ng/L (4.0-60.0) 10/16/23 07:44 C-Reactive Protein 88.00 mg/L (0-3.0) H 10/16/23 07:02 B-Natriuretic Peptide 438 pg/mL (0-79) H 10/17/23 05:10 Total Protein 5.2 g/dL (6.4-8.2) L 10/18/23 05:43 Albumin 1.3 g/dL (3.4-5.0) L 10/18/23 05:43 Globulin 3.9 g/dL (2.5-4.5) 10/18/23 05:43 Albumin/Globulin Ratio 0.3 Ratio (1.1-2.1) L 10/18/23 05:43 Amylase 12 Units/L (25-115) L 10/16/23 07:02 Lipase 10 Units/L (16-77) L 10/16/23 07:02 Vitamin B12 546 pg/mL (193-986) 10/16/23 07:35 Folate 4.6 ng/mL (>8.6) L 10/16/23 07:35 TSH 3rd Generation 0.960 uIU/mL (0.358-3.74) 10/16/23 07:02 Ethyl Alcohol mg/dL < 3 mg/dL (0-19.9) 10/16/23 07:44 Reason For Visit: ACUTE HYPOKALEMIA, ACUTE HYPONATREMIA Discharge Date Discharge Date: 10/18/23 Discharge Diagnosis All Active Problems (Updated 10/16/23 @ 11:40 by Ari Estrada) Acute hypokalemia (Acute) Acute hyponatremia (Acute) Hypokalemia (Acute) Elevated troponin level not due myocardial infarction (Acute) Hypomagnesemia (Acute) CHF (congestive heart failure) (Acute) Generalized weakness (Acute) Elevated troponin (Acute) COPD exacerbation (Acute) Acute hyponatremia (Acute) Mass of right lung (Acute) Pneumonia (Acute) Colon cancer screening (Acute) Nausea (Acute) COPD (chronic obstructive pulmonary disease) (Acute) Abdominal pain (Acute) Diverticulitis (Acute) GI bleeding (Acute) Intractable nausea and vomiting (Acute) Intractable diarrhea (Acute) Hematochezia (Acute) Contusion of left hand, initial encounter (Acute) Contusion of left wrist, initial encounter (Acute) Fall (Acute) Back contusion (Acute) Acute lumbar myofascial strain (Acute) Dehydration (Acute) Hypokalemia (Acute) Hyponatremia (Acute) Numbness (Acute) Elevated bilirubin (Acute) Diverticulitis (Acute) Abdominal pain (Acute) GI bleed (Acute) Hypertension (Chronic) Plan of Treatment: Continue with present treatment and follow up plan. Pt is to keep follow up appointment as instructed and take medications as ordered. Discharge Medications Discharge Medications: lisinopril Allergy (Unknown, Verified 08/11/23 09:23) Discharge Disposition Assessment: No acute distress noted at discharge. Discharge Plan Discharge Plan Hospital Course: Patient is a 58-year-old female that was admitted for acute hypokalemia, COPD, hypertension. Her hospital/treatment course included receiving electrolyte replacement therapy. Hypokalemia resolved. For her COPD she did receive respiratory therapy, supplemental oxygen, and pulmonary toileting. Symptoms significantly improved. She had her home medicines restarted and her hypertension monitored. Patient responded well to treatments and symptoms significantly improved. She was discharged in stable condition, instructed to follow-up with her PCP in 1 week and continue home medications. Patient Disposition: HOME, SELF-CARE Condition: Stable Health Concerns: Post Hospitalization: new medications and changes needed to prevent readmission or further decline. Pt educated and given instructions on all concerns. Care Plan Goals: Problem: Fluid Volume Deficit Goal: Maintain/Improved Adequate hydration. Instructions: Follow provided instructions. Follow up with primary physician as directed. Contact primary care physician or report to the closest Emergency Room if condition worsens. Plan of Treatment: Continue with present treatment and follow up plan. Pt is to keep follow up appointment as instructed and take medications as ordered. Assessment: No acute distress noted at discharge. Prescriptions: No Action potassium chloride [Klor-Con M20] 20 mEq tablet,ER particles/crystals 20 meq PO QDAY 30 Days Qty: 30 3RF oxycodone-acetaminophen 10-325 mg tablet 1 tab PO QID MDD 4 PRN (Reason: pain) 30 Days Qty: 120 0RF pregabalin [Lyrica] 150 mg capsule 150 mg PO BID 30 Days Qty: 60 0RF fentanyl 25 mcg/hr patch 72 hour 1 patch transdermal Q72H MDD 1 30 Days Qty: 10 0RF carvedilol 12.5 mg tablet 12.5 mg PO BID hydrochlorothiazide 12.5 mg capsule 12.5 mg PO QDAY furosemide 20 mg tablet 20 mg PO QDAY omeprazole 40 mg capsule,delayed release(DR/EC) 40 mg PO QDAY Follow ups/Referrals Follow ups/Referrals: Josr Parham [Primary Care Provider] - 10/25/23 10:50 am Instructions Instructions: Steps to Quit Smoking, [id number], Fall Prevention in the Home, Adult, [id number], Health Risks of Smoking, Hyponatremia, [id number], Hypokalemia, Weakness, Tobacco Use Disorder Stand Alone Forms: Post Hospital Follow Up Care
== END 2023-10-18 11:25 | disposition home or self-care (01) | DRG 641 ==
LOC: ER 06:54 → MED/SURG 11:36
PROVIDERS: ADMIT Internal Medicine; ATTEND Family Medicine
DX: R93.89 Abnormal findings on diagnostic imaging of other specified body structures; R53.1 Weakness; R06.02 Shortness of breath; E83.42 Hypomagnesemia; I95.89 Other hypotension; E87.1 Hypo-osmolality and hyponatremia; R79.1 Abnormal coagulation profile; J10.1 Influenza due to other identified influenza virus with other respiratory manifestations; J44.9 Chronic obstructive pulmonary disease, unspecified; K21.9 Gastro-esophageal reflux disease without esophagitis; I10 Essential (primary) hypertension; F10.188 Alcohol abuse with other alcohol-induced disorder; G62.1 Alcoholic polyneuropathy; R79.82 Elevated C-reactive protein (CRP); R94.31 Abnormal electrocardiogram [ECG] [EKG]; E87.6 Hypokalemia